=== PATIENT | female | born 1945 | race Caucasian/White ===

== ENCOUNTER 2017-10-08 08:58 | Inpatient (IN) | payer MEDICARE ==
[2017-10-08] VITALS (13 sets, daily range): BP systolic 106–125; BP diastolic 31–58
[~2017-10-08] VITALS: Ht 162.6 cm; Wt 73.5 kg
[~2017-10-08 08:58] MED LIST: ADVAIR 250-501 EACH INH; ALBUTEROL0.63 MG/3 NEB; ASPIR 8181 MG PO; CALCIUM 500+D1 EACH PO; CALCIUM 600 +1 EAC2 PO; CARDIZEM60 MG PO; CARDURA4 MG PO; CLOPIDOGREL75 MG PO; CO Q-10200 MG PO; COUMADIN3 MG PO; DILTIAZEM 24HR120 M1 PO; DIOVAN80 MG PO; FUROSEMIDE40 MG PO; HYDROCHLOROTHIA25 MG; LOSARTAN POTASS25 MG PO; LOVENOX60 MG/0.6 SC; METOPROLOL TART50 MG PO; MULTI-VITAMIN1 EACH PO; NASACORT; NIACIN500 M2 PO; NITROSTAT0.4 MG SL; POTASSIUM CHLO10 ME1 PO; POTASSIUM CHLO20 ME1 PO; PROAIR HFA INH8.5 GM PO; RANITIDINE HCL150 MG PO; SILVADENE20 GM; SIMVASTATIN20 MG PO; SPIRIVA18 MCG INH; TYLENOL WITH C1 EACH PO; WARFARIN SODIUM2 MG PO; WARFARIN SODIUM5 MG PO; ZEBETA10 MG PO; ZIAC 5-6.25 MG1 EACH PO; ZOCOR40 MG PO; iron PO
--- OUTSIDE RECORDS SUMMARY | 2017-10-08 09:00 | XMS REPORT ---
Author Author [facility] Address Unknown Phone Unavailable Care Team Providers Care Heel Varnisher Name Role Phone LC MAURER Unavailable Unavailable Problems This patient has no known problems. Allergies, Adverse Reactions, Alerts This patient has no known allergies or adverse reactions. Medications This patient has no known medications. Results Test Description Test Time Test Comments Text Results Atomic Results Result Comments CHEST 2 VIEWS [place] [address] Patient Name: NATHALIE DIETRICH MR #: [id number] : 1945 Age/Sex: 72/F Req # : [id number] Adm Physician: Ordered by: LC MAURER MD Report #: [id number] [facility]: [facility] Room/Bed: Procedure: 1120- 0019 DX/CHEST 2 VIEWS Exam Date: 06/29/17 Exam Time : 0905 REPORT STATUS: Signed PROCEDURE: CHEST 2 VIEWS TECHNIQUE: PA and lateral chest totaling 3 radiographs INDICATION: Bronchitis COMPARISON: None. FINDINGS: Symmetric hyperinflation without focal air space disease. Lungs are otherwise clear and symmetrically inflated. No pleural effusions. Normal heart size. Elevation of the akanksha bilaterally with mild central vascular prominence. Mediastinal vascular stent, likely within the brachiocephalic artery. Aortic arch calcification. Intact skeleton. CONCLUSION: Hyperinflation in keeping with air trapping related to COPD. No evidence of pneumonia. Dictated by: Genesis Perez M.D. on 06/29/2017 at 9:30 Electronically approved by: Genesis Perez M.D. on 06/29/2017 at 9:30 Dictated By: GENESIS PEREZ MD 9 Transcribed By: TRINY on 06/29/17929 COPY TO: LC MAURER MD
[2017-10-08] MEDS ORDERED: SODIUM CHLORIDE 0.9% 1000ML 1,000 ML ONE (09:51)
[2017-10-08 09:58] LABS: BASOPHILS % 0.2 % (0.0-1.0); EOSINOPHILS # (AUTO) 0.1 (0.0-0.4); EOSINOPHILS % 0.6 % (0.0-6.0); LYMPHOCYTES # (AUTO) 1.6 (1.0-3.2); MEAN CORPUSCULAR HEMOGLOBIN 30.3 pg (28-32); MEAN CORPUSCULAR HGB CONC 31.1 g/dL (31-35); MEAN CORPUSCULAR VOLUME 97.4 fL (81-99); MONOCYTES # (AUTO) 0.7 (0.2-0.8); MONOCYTES % 7.4 % (4.4-11.3); NEUTROPHILS % 74.2 % (38.7-80.0); PLATELET COUNT 339 x10e3/uL (140-360); RED BLOOD COUNT 1.95 x10e6/uL (3.6-5.1)
[2017-10-08] MEDS ORDERED: SODIUM CHLORIDE 0.9% 1000ML 1,000 ML IV SCH (10:00)
[2017-10-08 10:11] LABS: HEMOGLOBIN 5.9 g/dL (12.0-16.0)
[2017-10-08 10:12] LABS: PROTHROMBIN TIME 51.8 seconds (11.9-14.5)
[2017-10-08 10:13] LABS: INR 6.23
[2017-10-08] MEDS ORDERED: PHYTONADIONE 10 MG/ML AMP SC STA (10:13)
[2017-10-08 10:14] LABS: ALANINE AMINOTRANSFERASE 9 IU/L (0-55); ALBUMIN/GLOBULIN RATIO 1.1 (0.8-2.0); ALKALINE PHOSPHATASE 47 IU/L (40-150); ANION GAP 12.6 mmol/L (8-16); BLOOD UREA NITROGEN 37 mg/dL (7-26); BUN/CREATININE RATIO 51 (6-25); CALCIUM 8.9 mg/dL (8.4-10.2); CARBON DIOXIDE 22 mmol/L (22-29); CHLORIDE 111 mmol/L (98-107); CREATININE, SERUM 0.73 mg/dL (0.57-1.11); EST GLOMERULAR FILTRATION RATE > 60 ML/MIN (60-); GLUCOSE 132 mg/dL (74-118); POTASSIUM 3.6 mmol/L (3.5-5.1); SODIUM 142 mmol/L (136-145)
[2017-10-08] MEDS ORDERED: SODIUM CHLORIDE 0.9% 250ML 250 ML IV ONE (10:15)
--- NOTE | 2017-10-08 10:47 | Diagnostic Imaging Report ---
PROCEDURE:CHEST SINGLE (PORTABLE) TECHNIQUE:Portable AP chest INDICATION:Vertigo; weakness COMPARISON:Patients [facility], , CHEST 2 VIEWS, 06/29/2017, 8:50. FINDINGS: Lungs are clear and symmetrically hyperinflated. No pleural effusions. Normal heart size, mediastinal contour, and pulmonary vasculature for technique. Mild aortic arch calcification. Grossly intact skeleton. CONCLUSION: 1. No acute abnormality. 2. Mild hyperinflation suggesting air trapping from COPD. Dictated by: Bob Perez M.D. on 10/08/2017 at 10:47 Electronically approved by: Bob Perez M.D. on 10/08/2017 at 10:47
[2017-10-08] MEDS ORDERED: PANTOPRAZOLE INJ 80 MG in SODIUM CHLORIDE 0.9% 100 ML IV SCH (11:00)
[2017-10-08 11:22] LABS: BILIRUBIN,URINE NEGATIVE (NEGATIVE); CLARITY,URINE CLEAR (CLEAR); COLOR,URINE YELLOW (YELLOW); KETONES,URINE NEGATIVE (NEGATIVE); LEUKOCYTE ESTERASE ,URINE NEGATIVE (NEGATIVE); NITRITE,URINE NEGATIVE (NEGATIVE); PROTEIN,URINE DIPSTICK NEGATIVE (NEGATIVE); URINE UROBILINOGEN 0.2 mg/dL (0.2 - 1)
[2017-10-08 11:39] LABS: WBC,URINE (MAN) 0-5 /HPF (0-5)
[2017-10-08 11:40] LABS: BACTERIA,URINE FEW /HPF; EPITHELIAL CELLS,URINE FEW /LPF
[2017-10-08 11:41] LABS: MUCUS,URINE MODERATE (RARE); URIC ACID CRYSTALS,URINE MANY (FEW)
--- NOTE | 2017-10-08 12:04 | Diagnostic Imaging Report ---
History:AMS Comparison studies:MRI brain 08/11/2016 Technique: Axial images were obtained from the skull base to the vertex. Coronal and sagittal images reconstructed from the axial data. Intravenous contrast: None Findings: Scalp/skull: No abnormalities. Extra-axial spaces: No masses. No fluid collections. Brain sulci: Mildly prominent. Ventricles: Mild compensatory dilatation. No hydrocephalus. Parenchyma: Scattered hypodensities in the supratentorial white matter are small vessel ischemic changes. Focal encephalomalacia at the left pre and post central gyri, secondary to remote insult. No masses, hemorrhage or acute cortical vascular insults. Sellar/suprasellar region: No abnormalities. Craniocervical junction: Patent foramen magnum. No Chiari one malformation. Incidental findings: Atherosclerotic calcifications in the carotid siphons . Under pneumatization of the right mohel cells with sclerotic changes, secondary to remote inflammation. Impression: No acute abnormalities. Chronic findings: 1. Mild generalized volume loss. 2. Moderate supratentorial white matter small vessel ischemic changes.. 3. Remote insult in the left pre and post central gyri. Signed by: DR Alexandro Bermudez M.D. on 10/08/2017 12:01 PM
[2017-10-08] MEDS: D5.45%NS/KCL 20MEQ 1,000 ML IV SCH ×2 (13:30→18:52)
[2017-10-08] MEDS: PANTOPRAZOLE INJ 40 MG in SODIUM CHLORIDE 0.9% 50ML 50 ML IV SCH ×2 (13:30→20:30)
[2017-10-08] MEDS ORDERED: PHYTONADIONE 10 MG/ML AMP SC NR (13:30)
[2017-10-08] MEDS ORDERED: SODIUM CHLORIDE 0.9% 250ML 250 ML IV NR (13:30)
[2017-10-08 16:44] LABS: % IRON SATURATION 18 % (15-50); IRON 69 ug/dL (50-170); TOTAL IRON BINDING CAPACITY 378 ug/dL (261-478); TRANSFERRIN 270 mg/dL (180-382)
--- NOTE | 2017-10-08 16:50 | History and Physical ---
A 72-year-old female who comes in with dizziness and shortness of breath. HISTORY OF PRESENT ILLNESS: Ms. Komal Bassett was in her usual state of health until a couple of days ago the patient started to have shortness of breath and the patient also had some black tarry stool on further discussion. This started about a week or 2 prior to this admission. PAST MEDICAL HISTORY: History of hypertension, history of coronary artery disease, history of hyperlipidemia, history of atrial fibrillation and COPD. HOME MEDICATIONS: Aspirin 81 mg, Advair 250/50, hydrochlorothiazide 25, metoprolol 50, Niacin 500, potassium chloride 20, simvastatin 40, Spiriva 18, losartan 80, warfarin 5 mg, 3 mg every other day, 3 mg every other day. SOCIAL HISTORY: A former smoker. Positive for a few drinks. No heavy alcohol involved. No IV drug abuse. FAMILY HISTORY: Lung cancer in father and leukemia in mother. PHYSICAL EXAMINATION VITAL SIGNS: The patient came in with hypotension. Temperature 98.9, pulse 63, respirations 18, blood pressure 97/37. GENERAL: The patient is alert and oriented x3. HEENT: Normocephalic, atraumatic. Pupils react to light and accommodation. On examination of the icterus, positive for pallor. CVS: S1 and S2 are normal. Regular rate and rhythm. ABDOMEN: Nontender, nondistended. EXTREMITIES: No cyanosis, clubbing or edema. LABS OF NOTE: Initial white count was 9.4, hemoglobin 5.9, hematocrit 19. Chemistries: Sodium 142, potassium 3.6, BUN 37, creatinine 0.73. GFR was 50. Glucose was 132. Lactic acid was 7.3. Coags: PT 51, INR 6.23. ASSESSMENT 1. Upper gastrointestinal bleed. 2. Coumadin toxicity. 3. Hypotension. 4. Acute blood loss anemia. PLAN: Transfusion with 3 units of blood, and 3 units of packed red blood cells has been requested, and start transfusing her. Also GI consult with Dr. Fercho Rios for probable endoscopy after she is stabilized. Receiving all her home medications for COPD. Oxygen per protocol. Further recommendations depending on clinical course. Will continue to monitor the patient. Job#: [id number]
[2017-10-08 18:42] LABS: HEMATOCRIT 20.4 % (34.2-44.1); HEMOGLOBIN 6.4 g/dL (12.0-16.0)
[2017-10-08] MEDS ORDERED: PANTOPRAZOLE 40 MG 10ML VIAL ONE (21:23)
[2017-10-08] MEDS ORDERED: SODIUM CHLORIDE 0.9% 250ML 250 ML ONE (22:48)
[2017-10-09] VITALS (84 sets, daily range): BP systolic 59–151; BP diastolic 27–90
[2017-10-09] MEDS: PANTOPRAZOLE INJ 40 MG in SODIUM CHLORIDE 0.9% 50ML 50 ML IV SCH ×2 (01:00→15:45)
[2017-10-09] MEDS: SALMETEROL/FLUTICASONE 250/50 INH SCH (03:00)
[2017-10-09] MEDS: TIOTROPIUM 18 MCG INH POWDER INH SCH (03:00)
[2017-10-09 06:04] LABS: BASOPHILS % 0.3 % (0.0-1.0); EOSINOPHILS # (AUTO) 0.1 (0.0-0.4); LYMPHOCYTES # (AUTO) 1.9 (1.0-3.2); LYMPHOCYTES % 18.8 % (18.0-39.1); MEAN CORPUSCULAR HEMOGLOBIN 30.6 pg (28-32); MEAN CORPUSCULAR HGB CONC 32.7 g/dL (31-35); MEAN CORPUSCULAR VOLUME 93.6 fL (81-99); MONOCYTES # (AUTO) 0.7 (0.2-0.8); MONOCYTES % 7.1 % (4.4-11.3); NEUTROPHILS # (AUTO) 7.2 (2.1-6.9); NEUTROPHILS % 71.9 % (38.7-80.0); PLATELET COUNT 283 x10e3/uL (140-360); RED BLOOD COUNT 2.35 x10e6/uL (3.6-5.1); RED CELL DISTRIBUTION WIDTH 16.4 % (11.7-14.4); RETICULOCYTE % 5.5 % (0.8-2.2)
[2017-10-09 06:07] LABS: HEMOGLOBIN 7.2 g/dL (12.0-16.0)
[2017-10-09 06:16] LABS: INR 1.69; PROTHROMBIN TIME 18.7 seconds (11.9-14.5)
[2017-10-09 06:17] LABS: PARTIAL THROMBOPLASTIN TIME 31.9 seconds (23.8-35.5)
[2017-10-09 06:21] LABS: ANION GAP 10.4 mmol/L (8-16); BLOOD UREA NITROGEN 19 mg/dL (7-26); BUN/CREATININE RATIO 29 (6-25); CALCIUM 7.8 mg/dL (8.4-10.2); CARBON DIOXIDE 25 mmol/L (22-29); CHLORIDE 111 mmol/L (98-107); CREATININE, SERUM 0.65 mg/dL (0.57-1.11); EST GLOMERULAR FILTRATION RATE > 60 ML/MIN (60-); GLUCOSE 117 mg/dL (74-118); POTASSIUM 3.4 mmol/L (3.5-5.1); SODIUM 143 mmol/L (136-145)
[2017-10-09] MEDS ORDERED: SODIUM CHLORIDE 0.9% 250ML 250 ML IV ONE (06:45)
[2017-10-09 07:50] LABS: FOLATE 15.1 ng/mL (7.0-15.4)
[2017-10-09] MEDS: D5.45%NS/KCL 20MEQ 1,000 ML IV SCH ×4 (10:52→20:51)
[2017-10-09] MEDS: ALBUTEROL/IPRATROPIUM 3 ML NEB NEB SCH ×4 (12:30→22:55)
[2017-10-09] MEDS ORDERED: FUROSEMIDE INJ 10 MG/ML 4 ML VIAL ONE (12:40)
[2017-10-09] MEDS ORDERED: FUROSEMIDE INJ 10 MG/ML 4 ML VIAL IV ONE (12:45)
[2017-10-09] MEDS: PANTOPRAZOL 40MG/SOD CHL 0.9% 50 ML IV SCH ×2 (16:15→21:56)
[2017-10-09 16:37] LABS: HEMATOCRIT 25.4 % (34.2-44.1); HEMOGLOBIN 8.3 g/dL (12.0-16.0)
[2017-10-10] VITALS (35 sets, daily range): BP systolic 99–178; BP diastolic 35–86
[2017-10-10 00:55] LABS: HEMATOCRIT 23.3 % (34.2-44.1)
[2017-10-10 00:57] LABS: HEMOGLOBIN 7.8 g/dL (12.0-16.0)
[2017-10-10] MEDS ORDERED: SODIUM CHLORIDE 0.9% 250ML 250 ML IV ONE (01:15)
[2017-10-10] MEDS: PANTOPRAZOL 40MG/SOD CHL 0.9% 50 ML IV SCH ×6 (02:12→22:37)
[2017-10-10] MEDS: ALBUTEROL/IPRATROPIUM 3 ML NEB NEB SCH ×6 (02:20→21:35)
[2017-10-10] MEDS: D5.45%NS/KCL 20MEQ 1,000 ML IV SCH ×3 (05:34→21:16)
[2017-10-10 05:42] LABS: HEMATOCRIT 33.1 % (34.2-44.1)
[2017-10-10 05:55] LABS: HEMOGLOBIN 11.1 g/dL (12.0-16.0)
[2017-10-10] MEDS ORDERED: FUROSEMIDE INJ 10 MG/ML 2 ML VIAL IV ONE (06:45)
[2017-10-10] MEDS ORDERED: FUROSEMIDE INJ 10 MG/ML 2 ML VIAL ONE (06:52)
[2017-10-10] MEDS: TIOTROPIUM 18 MCG INH POWDER INH SCH (07:00)
[2017-10-10] MEDS: SALMETEROL/FLUTICASONE 250/50 INH SCH (07:00)
[2017-10-10 08:18] LABS: ALANINE AMINOTRANSFERASE 11 IU/L (0-55); ALBUMIN 2.9 g/dL (3.5-5.0); ALKALINE PHOSPHATASE 46 IU/L (40-150); ANION GAP 12.4 mmol/L (8-16); BLOOD UREA NITROGEN 8 mg/dL (7-26); BUN/CREATININE RATIO 12 (6-25); CALCIUM 7.5 mg/dL (8.4-10.2); CARBON DIOXIDE 24 mmol/L (22-29); CHLORIDE 108 mmol/L (98-107); CREATININE, SERUM 0.66 mg/dL (0.57-1.11); EST GLOMERULAR FILTRATION RATE > 60 ML/MIN (60-); GLUCOSE 123 mg/dL (74-118); POTASSIUM 3.4 mmol/L (3.5-5.1); SODIUM 141 mmol/L (136-145)
[2017-10-10] MEDS ORDERED: CYANOCOBALAMIN INJ 1,000 MCG/ML VIAL IM SCH ×2 (09:00→21:00)
[2017-10-10 12:11] LABS: HEMATOCRIT 33.8 % (34.2-44.1); HEMOGLOBIN 11.1 g/dL (12.0-16.0)
[2017-10-10] MEDS ORDERED: CEFTRIAXONE SOD 1 GM VIAL IV SCH (13:30)
[2017-10-10] MEDS ORDERED: LIDOCAINE HCL 2% LOCAL INJ 5 ML SDV VIAL INJ ONE (13:47)
[2017-10-10] MEDS ORDERED: PROPOFOL IV EMULSION 10 MG/ML 50 ML VIAL ONE (13:47)
--- NOTE | 2017-10-10 18:01 | Diagnostic Imaging Report ---
EXAMINATION: CHEST 2 VIEWS INDICATION: \S\SOB \S\[id number] \S\1550 COMPARISON: Chest radiograph from 10/08/2017 at 10:35 AM FINDINGS: PA and lateral views TUBES and LINES: None. LUNGS: Lungs are well inflated. Mildly worsening pulmonary edema. No lobar consolidations. PLEURA: Small left pleural effusion. HEART AND MEDIASTINUM: Stable mild enlargement of the cardiac silhouette. Atherosclerotic calcifications of the aortic arch. BONES AND SOFT TISSUES: No acute osseous lesion. Soft tissues are unremarkable. UPPER ABDOMEN: No free air under the diaphragm. IMPRESSION: Mildly worsening bilateral pulmonary edema. Signed by: Dr. Amparo Camejo M.D. on 10/10/2017 5:57 PM
[2017-10-10 18:16] LABS: INR 1.09; PROTHROMBIN TIME 13.3 seconds (11.9-14.5)
[2017-10-10 19:21] LABS: HEMATOCRIT 35.8 % (34.2-44.1); HEMOGLOBIN 11.8 g/dL (12.0-16.0)
[2017-10-10] MEDS: CEFTRIAXONE SOD 1 GM VIAL IV SCH (21:29)
--- NOTE | 2017-10-10 21:32 | Operative Report ---
DATE OF PROCEDURE: October 10, 2017 REFERRING PHYSICIAN: Dr. Dusty Rojas and Dr. Edinson Jewell PROCEDURE PERFORMED: Esophagogastroduodenoscopy. INDICATIONS FOR EGD: Anemia, history of melena. MEDICATION: Patient was done under MAC. Please see anesthesiologist's note. PROCEDURE: Patient in left lateral decubitus position. Flexible fiberoptic Olympus gastroscope was introduced into the esophagus under direct visualization without any difficulty. The esophagus appeared to be within normal limits. The scope was then advanced with ease into the stomach. Mucosa overlying the antrum and the body revealed some patchy intense erythema and low-grade to moderate edema and biopsies were obtained, sent to stain for H. pylori. Pylorus appeared to be of normal contour and shape. It was intubated with ease and the scope was advanced all the way to the 2nd portion of the duodenum. The scope was then withdrawn slowly. Mucosa overlying the proximal 2nd portion and the duodenal bulb appeared to be within normal limits. The scope was then withdrawn back into the stomach and retroflexed and mucosa overlying the fundus and the cardia appeared to be within normal limits. The scope was then straightened out. It was subsequently withdrawn. Patient tolerated the procedure well. IMPRESSIONS 1. Normal esophagus. 2. Gastritis, biopsied. Biopsies sent to stain for Helicobacter pylori. PLAN: Follow up histology. Follow H and H. Start full liquid diet. Findings do not explain patient's blood loss. Will get a GI bleed scan and if negative, a small bowel series is in order and possibly capsule endoscopy. Patient has had a colonoscopy in July 06 at [place] and reportedly some polyps were removed per patient's account. Records are not available. Job#: [id number] cc:MD EDINSON GIRON MD
[2017-10-10] MEDS: ONDANSETRON HCL INJ 2 MG/ML VIAL IV PRN (22:30)
[2017-10-11] VITALS (8 sets, daily range): BP systolic 118–171; BP diastolic 53–67
--- NOTE | 2017-10-11 00:39 | Diagnostic Imaging Report ---
EXAM: G I BLEED INDICATION: GI BLEED, dark bloody stools since June 2017 COMPARISON: None FINDINGS: The patient's own red blood cells were labeled with 25 mCi of technetium-99m pertechnetate using the in vitro method (UltraTag). Dynamic images of the abdomen were obtained through 60 minutes. Distribution of tracer activity appears physiologic throughout the abdomen. No abnormal accumulation of tracer is seen within the gastrointestinal lumen. IMPRESSION: There is no scan evidence of active gastrointestinal bleeding at this time. Signed by: Dr. Joselin Hicks M.D. on 10/11/2017 12:35 AM
[2017-10-11] MEDS: TRAMADOL HCL 50 MG TAB PO PRN ×2 (01:27→07:40)
[2017-10-11 01:34] LABS: HEMATOCRIT 32.7 % (34.2-44.1)
[2017-10-11] MEDS: ALBUTEROL/IPRATROPIUM 3 ML NEB NEB SCH ×6 (02:55→23:00)
[2017-10-11] MEDS: PANTOPRAZOL 40MG/SOD CHL 0.9% 50 ML IV SCH ×5 (04:44→23:15)
[2017-10-11] MEDS: D5.45%NS/KCL 20MEQ 1,000 ML IV SCH ×2 (04:45→13:16)
[2017-10-11 07:07] LABS: HEMATOCRIT 33.9 % (34.2-44.1); HEMOGLOBIN 11.2 g/dL (12.0-16.0)
[2017-10-11] MEDS: ONDANSETRON HCL INJ 2 MG/ML VIAL IV PRN (07:40)
[2017-10-11] MEDS: TIOTROPIUM 18 MCG INH POWDER INH SCH (09:00)
[2017-10-11] MEDS: SALMETEROL/FLUTICASONE 250/50 INH SCH (09:00)
[2017-10-11 12:13] LABS: HEMOGLOBIN 11.8 g/dL (12.0-16.0)
--- NOTE | 2017-10-11 16:45 | Consultation ---
DATE OF CONSULTATION: PULMONARY CONSULTATION Patient of Dr. Dusty Rojas, Dr. Johnson , Dr. Fercho Rios. HISTORY: Charming, but unfortunate 72-year-old woman admitted with weakness, tarry stools for 3 months. History of colonoscopy with polyp removal and apparently some bleeding after that, and weak for the last 5 days, unable to stand. PAST MEDICAL HISTORY: History of hypertension, hyperlipidemia, coronary artery disease, atrial fibrillation, COPD. ALLERGIES: NO KNOWN ALLERGIES. MEDICATIONS: Include aspirin, Advair, hydrochlorothiazide, metoprolol, niacin, potassium, Zocor, losartan, and warfarin. PAST SURGICAL HISTORY: She has had left carotid surgery, gallbladder surgery, coronary stent, innominate stent, temporal artery biopsy. SOCIAL HISTORY: Quit smoking 1 year ago. Uses oxygen only at night. Now, she is more short of breath. She thought she would improve after she was transfused 5 units of packed cells, but apparently remained short of breath. Her hemoglobin on admission on the was 5.9. PHYSICAL EXAMINATION: GENERAL: This is a well-developed elderly white female, in no acute distress. VITAL SIGNS: Temperature 100.8; pulse 81, irregular; respirations 20, blood pressure 129/59. HEAD: Normocephalic, atraumatic. LUNGS: Diminished breath sounds. HEART: Regular rhythm. ABDOMEN: Nontender. EXTREMITIES: Not edematous. IMPRESSION: 1. Possible heart failure. 2. Anemia, which has resolved. 3. Chronic obstructive pulmonary disease. 4. Coronary artery disease. PLAN: Follow up chest x-ray. Decrease IV fluids. Empiric antibiotic in view of fever. Thank you for this kind referral. Job#: [id number]
[2017-10-11 19:39] LABS: HEMATOCRIT 34.8 % (34.2-44.1); HEMOGLOBIN 11.3 g/dL (12.0-16.0)
[2017-10-11] MEDS: CEFTRIAXONE SOD 1 GM VIAL IV SCH (20:24)
[2017-10-12] VITALS (8 sets, daily range): BP systolic 112–173; BP diastolic 54–72
[2017-10-12] MEDS: ALBUTEROL/IPRATROPIUM 3 ML NEB NEB SCH ×5 (02:46→21:05)
[2017-10-12] MEDS: PANTOPRAZOL 40MG/SOD CHL 0.9% 50 ML IV SCH ×3 (03:01→19:15)
[2017-10-12 06:23] LABS: BASOPHILS % 0.4 % (0.0-1.0); EOSINOPHILS # (AUTO) 0.2 (0.0-0.4); EOSINOPHILS % 2.9 % (0.0-6.0); HEMATOCRIT 29.5 % (34.2-44.1); HEMOGLOBIN 9.7 g/dL (12.0-16.0); LYMPHOCYTES # (AUTO) 0.9 (1.0-3.2); LYMPHOCYTES % 12.3 % (18.0-39.1); MEAN CORPUSCULAR HEMOGLOBIN 30.2 pg (28-32); MEAN CORPUSCULAR HGB CONC 32.9 g/dL (31-35); MEAN CORPUSCULAR VOLUME 91.9 fL (81-99); MONOCYTES # (AUTO) 0.7 (0.2-0.8); MONOCYTES % 9.1 % (4.4-11.3); NEUTROPHILS # (AUTO) 5.4 (2.1-6.9); NEUTROPHILS % 74.7 % (38.7-80.0); PLATELET COUNT 254 x10e3/uL (140-360); RED BLOOD COUNT 3.21 x10e6/uL (3.6-5.1); RED CELL DISTRIBUTION WIDTH 15.8 % (11.7-14.4)
[2017-10-12 06:36] LABS: ANION GAP 10.9 mmol/L (8-16); BLOOD UREA NITROGEN 8 mg/dL (7-26); BUN/CREATININE RATIO 13 (6-25); CALCIUM 7.1 mg/dL (8.4-10.2); CARBON DIOXIDE 25 mmol/L (22-29); CHLORIDE 103 mmol/L (98-107); CREATININE, SERUM 0.64 mg/dL (0.57-1.11); EST GLOMERULAR FILTRATION RATE > 60 ML/MIN (60-); GLUCOSE 94 mg/dL (74-118); SODIUM 136 mmol/L (136-145)
[2017-10-12 06:50] LABS: POTASSIUM 2.9 mmol/L (3.5-5.1)
[2017-10-12] MEDS: ONDANSETRON HCL INJ 2 MG/ML VIAL IV PRN (08:57)
[2017-10-12] MEDS: TIOTROPIUM 18 MCG INH POWDER INH SCH (09:00)
[2017-10-12] MEDS: SALMETEROL/FLUTICASONE 250/50 INH SCH (09:00)
[2017-10-12] MEDS ORDERED: POTASSIUM CHLORIDE 20 MEQ TAB CR PO ONE (12:45)
--- NOTE | 2017-10-12 13:26 | Diagnostic Imaging Report ---
PROCEDURE: SMALL BOWEL SERIES Comparison: None. Indications: ANEMIA, GI BLEED Technique: Small bowel follow through exam was performed using oral barium. Preliminary image was obtained before administration of contrast and serial overhead images were obtained after administration of oral barium. Fluoroscopy was performed and spot images were obtained. Findings: SMALL BOWEL FOLLOW THROUGH: Small bowel loops are normal in caliber and distribution. Spot compression views of the terminal ileum are normal. The transit time was normal. IMPRESSION: No acute radiographic abnormality. Dictated by: Mahad Richardson M.D. on 10/12/2017 at 13:25 Electronically approved by: Mahad Richardson M.D. on 10/12/2017 at 13:25
[2017-10-12] MEDS: CEFTRIAXONE SOD 1 GM VIAL IV SCH (19:56)
[2017-10-13] VITALS: BP 121/56
[2017-10-13] MEDS: PANTOPRAZOL 40MG/SOD CHL 0.9% 50 ML IV SCH ×2 (00:13→05:33)
[2017-10-13 00:59] VITALS: BP 121/56
[2017-10-13] MEDS: ALBUTEROL/IPRATROPIUM 3 ML NEB NEB SCH (03:50)
[2017-10-13 04:00] VITALS: BP 155/69
[2017-10-13 05:39] LABS: BASOPHILS % 0.3 % (0.0-1.0); EOSINOPHILS # (AUTO) 0.2 (0.0-0.4); HEMOGLOBIN 9.8 g/dL (12.0-16.0); LYMPHOCYTES % 14.5 % (18.0-39.1); MEAN CORPUSCULAR HEMOGLOBIN 29.9 pg (28-32); MEAN CORPUSCULAR HGB CONC 32.7 g/dL (31-35); MEAN CORPUSCULAR VOLUME 91.5 fL (81-99); MONOCYTES # (AUTO) 0.7 (0.2-0.8); NEUTROPHILS # (AUTO) 5.1 (2.1-6.9); NEUTROPHILS % 71.8 % (38.7-80.0); PLATELET COUNT 268 x10e3/uL (140-360); RED BLOOD COUNT 3.28 x10e6/uL (3.6-5.1); RED CELL DISTRIBUTION WIDTH 15.4 % (11.7-14.4)
[2017-10-13 05:48] LABS: INR 1.05; PROTHROMBIN TIME 12.9 seconds (11.9-14.5)
[2017-10-13 05:56] LABS: ANION GAP 12.5 mmol/L (8-16); BLOOD UREA NITROGEN 7 mg/dL (7-26); BUN/CREATININE RATIO 11 (6-25); CALCIUM 7.3 mg/dL (8.4-10.2); CARBON DIOXIDE 27 mmol/L (22-29); CHLORIDE 106 mmol/L (98-107); CREATININE, SERUM 0.62 mg/dL (0.57-1.11); EST GLOMERULAR FILTRATION RATE > 60 ML/MIN (60-); GLUCOSE 101 mg/dL (74-118); POTASSIUM 3.5 mmol/L (3.5-5.1); SODIUM 142 mmol/L (136-145)
[2017-10-13 06:14] LABS: MAGNESIUM 1.4 MG/DL (1.3-2.1)
[2017-10-13 07:43] VITALS: BP 163/87
[2017-10-13] MEDS ORDERED: KEFLEX500 MG PO (07:59)
[2017-10-13 08:30] VITALS: BP 163/87
== END 2017-10-13 08:43 | disposition home or self-care (01) | DRG 378 ==
LOC: ER 08:58 → ERHOLD 15:00 → ICU 19:05 → MED/SURG 10-10 08:04
PROVIDERS: ADMIT Internal Medicine; ATTEND Internal Medicine
PROC: 30250K1 (ICD-10-PCS; principal; 2017-10-08)
PROC: 30250N1 (ICD-10-PCS; principal; 2017-10-08)
PROC: 30250L1 (ICD-10-PCS; principal; 2017-10-08)
PROC: 02HV33Z Insertion of Infusion Device into Superior Vena Cava, Percutaneous Approach (ICD-10-PCS; 2017-10-09)
PROC: 0DB78ZX Excision of Stomach, Pylorus, Via Natural or Artificial Opening Endoscopic, Diagnostic (ICD-10-PCS; 2017-10-10)
PROC: 0DB68ZX Excision of Stomach, Via Natural or Artificial Opening Endoscopic, Diagnostic (ICD-10-PCS; 2017-10-10)
DX: K92.2 Gastrointestinal hemorrhage, unspecified (principal); D62 Acute posthemorrhagic anemia; I48.2 Chronic atrial fibrillation; J44.9 Chronic obstructive pulmonary disease, unspecified; T45.515A Adverse effect of anticoagulants, initial encounter; I25.10 Atherosclerotic heart disease of native coronary artery without angina pectoris; K21.9 Gastro-esophageal reflux disease without esophagitis; Z79.01 Long term (current) use of anticoagulants; F32.9 Major depressive disorder, single episode, unspecified; E87.6 Hypokalemia; Z86.73 Personal history of transient ischemic attack (TIA), and cerebral infarction without residual deficits; Z87.891 Personal history of nicotine dependence
CPT/HCPCS: 36415; 36430; 43239; 70450; 71045; 71046; 74250; 78278; 80048; 80053; 81001; 82270; 82607; 82746; 83540; 83605; 83735; 83880; 84466; 85014; 85018; 85025; 85045; 85610; 85730; 86850; 86900; 86920; 87040; 87086; 88305; 88312; 93005; 94640; 96360; 96361; 96365; 96366; 96375; 96376; 99285; A9512; J0696; J1940; J2001; J2405; J3420; J3430; J7030; J7050; P9016; P9017

== ENCOUNTER → 2017-10-16 | Outpatient (CLI) | payer MEDICARE ==
[~2017-10-16] MED LIST changes: +KEFLEX500 MG PO
[2017-10-16 12:20] LABS: BASOPHILS # (AUTO) 0.1 (0.0-0.1); BASOPHILS % 0.8 % (0.0-1.0); EOSINOPHILS # (AUTO) 0.1 (0.0-0.4); EOSINOPHILS % 1.5 % (0.0-6.0); HEMATOCRIT 35.5 % (34.2-44.1); HEMOGLOBIN 11.3 g/dL (12.0-16.0); LYMPHOCYTES # (AUTO) 1.1 (1.0-3.2); MEAN CORPUSCULAR HEMOGLOBIN 29.7 pg (28-32); MEAN CORPUSCULAR HGB CONC 31.8 g/dL (31-35); MEAN CORPUSCULAR VOLUME 93.4 fL (81-99); MONOCYTES # (AUTO) 0.6 (0.2-0.8); MONOCYTES % 7.9 % (4.4-11.3); NEUTROPHILS # (AUTO) 5.3 (2.1-6.9); NEUTROPHILS % 74.5 % (38.7-80.0); PLATELET COUNT 451 x10e3/uL (140-360)
[2017-10-16 12:33] LABS: INR 1.07; PROTHROMBIN TIME 13.1 seconds (11.9-14.5)
--- NOTE | 2017-10-16 13:13 | Diagnostic Imaging Report ---
PROCEDURE: Frontal and lateral views of the chest. COMPARISON: 10/10/17 INDICATIONS: SHORTNESS OF BREATH, COUGH FINDINGS: Lines/tubes: None. Lungs: The lungs are well inflated. Unchanged central vascular congestion and mild interstitial edema Pleura: There is no pneumothorax. Trace bilateral pleural effusions. Heart and mediastinum: The cardiac silhouette is borderline enlarged. Bones: No acute bony abnormality. IMPRESSION: Unchanged central vascular congestion, mild interstitial edema, and trace bilateral pleural effusions. Dictated by: Binu Ordonez M.D. on 10/16/2017 at 13:13 Electronically approved by: Binu Ordonez M.D. on 10/16/2017 at 13:13
== END ==
LOC: RAD 11:50
PROVIDERS: ATTEND Family Medicine
DX: J40 Bronchitis, not specified as acute or chronic (principal); D64.9 Anemia, unspecified; Z79.01 Long term (current) use of anticoagulants
CPT/HCPCS: 36415; 71046; 85025; 85610

== ENCOUNTER → 2018-04-22 | Emergency (ER) | payer MEDICARE ==
[~2018-04-22] VITALS: Ht 162.6 cm; Wt 73.5 kg
[~2018-04-22] MED LIST changes: +ULTRAM50 MG PO
--- NOTE | 2018-04-22 14:27 | Diagnostic Imaging Report ---
BILATERAL KNEE X-RAY - 6 VIEWS HISTORY: \S\FALL \S\[id number] \S\1340 COMPARISON: None available. FINDINGS: Bones: No acute displaced fracture. Osseous alignment is within normal limits. Joints: The joint spaces are well-maintained. Soft tissues: The soft tissues appear unremarkable. IMPRESSION: No acute radiographic abnormality. Signed by: Dr. Amparo Camejo M.D. on 04/22/2018 2:23 PM
== END | disposition home or self-care (01) ==
LOC: ER 12:57
DX: S80.02XA Contusion of left knee, initial encounter (principal); S80.01XA Contusion of right knee, initial encounter; W01.0XXA Fall on same level from slipping, tripping and stumbling without subsequent striking against object, initial encounter; Y93.01 Activity, walking, marching and hiking; Y92.238 Other place in hospital as the place of occurrence of the external cause; I51.9 Heart disease, unspecified; Z87.891 Personal history of nicotine dependence
CPT/HCPCS: 99284

== ENCOUNTER 2018-10-06 15:01 | Observation (INO) | payer MEDICARE ==
[~2018-10-06] VITALS: Ht 162.6 cm; Wt 66.7 kg
--- OUTSIDE RECORDS SUMMARY | 2018-10-06 15:05 | XMS REPORT | Continuity of Care Document ---
Author [facility] Interface Address Unknown Phone Unavailable Problems Problem Status Onset Date Classification Date Reported Comments Source FOLLOW UP/ HOSPITAL Active 07/13/2017 [facility] GI BLEED Active 07/06/2017 [facility] GI BLEED/ SENT BY DR Active 07/06/2017 [facility] Escherichia coli<sup>1, 2</sup> Active 03/10/2017 Problem 07/31/2017 Problem added by Discern Expert. [facility] DYSURIA Active 03/09/2017 [facility] HIGH BLOOD PRESSURE/ HEADACHES Active 03/09/2017 [facility] INNOMINATE ARTERY STENOSIS Active 10/22/2016 [facility] CCL/NOMINATE ARTERY OSTIAL ARTERY STENT/ Active 10/22/2016 [facility] CHEST PAIN/UNSTABLE ANGINA Active 09/08/2016 [facility] CAD, ANGINA Active 09/03/2016 [facility] CAD/HEART CATH Active 05/10/2002 [facility] Atrial fibrillation Resolved Problem [facility]/13[facility] COPD (<span ID="[id number]">Confirmed</span>) Active Problem 07/31/2017 [facility]F (<span ID="[id number]">Confirmed</span>) Resolved Problem 07/31/2017 [facility] HLD (<span ID="[id number]">Confirmed</span>) Resolved Problem 07/31/2017 [facility] (<span ID="[id number]">Confirmed</span>) Active Problem 07/31/2017 [facility] Heart attack Resolved Problem 07/31/2017 [facility] Pneumonia Resolved Problem 07/31/2017 [facility] Paroxysmal atrial fibrillation Active Problem 07/31/2017 [facility] Carotid artery stenosis with cerebral infarction Active Problem 07/31/2017 [facility] Atherosclerotic heart disease of [place] coronary artery without angina pectoris Active Problem 07/31/2017 [facility] Escherichia coli<sup>1</sup> Active Problem 03/13/2017 Problem added by Discern Expert. [facility] ILLNESS, UNSPECIFIED Active [facility] OTHER SPECIFIED CONGENITAL DEFORMITIES Active [facility] GASTROINTESTINAL HEMORRHAGE, UNSPECIFIED Active [facility] DYSURIA Active [facility] [employer] MEDICAL EXAM W/ Active [facility] Medications Medication Details Route Status Patient Instructions Ordering Provider Order Date Source Amlodipine 5 mg, 1 tab, Route: PO, Drug form: TAB, Daily, Dosing Weight 74.364, kg, Start date: 07/10/17 9:00:00 [employer], Duration: 30 day, Stop date: 08/08/17 9:00:00 CSTNotes: (Same as: Norvasc) No Longer Active 07/10/2017 [facility] potassium chloride 20 mEq oral tablet, extended release 20 mEq, 1 tab, Route: PO, Drug form: ERTAB, Daily, Dosing Weight 74.364, kg, Start date: 07/10/17 9:00:00 [employer], Duration: 30 day, Stop date: 08/08/17 9:00:00 CSTNotes: (Same as: K-Dur 20) "Do Not Crush" With food and full glass of water No Longer Active 07/10/2017 [facility] valsartan 160 mg, 1 tab, Route: PO, Drug form: TAB, BID, Dosing Weight 74.364, kg, Start date: 07/09/17 21:00:00 [employer], Duration: 30 day, Stop date: 08/08/17 9:00:00 CSTNotes: Same as Diovan Inactive 07/10/2017 [facility] Niacin 500 MG Extended Release Capsule 500 mg, 2 tab, Route: PO, Drug form: ERTAB, Bedtime, Dosing Weight 74.364, kg, Start date: 07/09/17 21:00:00 [employer], Duration: 30 day, Stop date: 08/07/17 21:00:00 CSTNotes: "Do Not Crush" With food. Inactive 07/10/2017 [facility] ferrous sulfate 325 mg oral enteric coated tablet 325 mg=1 tab, PO, Daily, 0 Refill(s) Active 07/09/2017 [facility] potassium chloride 20 mEq oral tablet, extended release 20 mEq=1 tab, PO, Daily, # 30 tab, 3 Refill(s) Active 07/09/2017 [facility] warfarin 4 mg oral tablet 4 mg=1 tab, PO, Daily, for 6 days, # 30 tab, 0 Refill(s) Active 07/09/2017 [facility] amLODIPine 5 mg oral tablet 5 mg=1 tab, PO, Daily, # 30 tab, 0 Refill(s) Active 07/09/2017 [facility] Albuterol 0.83 MG/ML Inhalant Solution 2.5 mg=3 mL, NEB, TID, PRN as needed for wheezing, 0 Refill(s) Active 07/09/2017 [facility] Hydrochlorothiazide 12.5 mg, PO, Daily, 0 Refill(s) Active 07/09/2017 [facility] ascorbic acid 500 mg oral tablet 2,000 mg=4 tab, PO, Daily, # 30 tab, 0 Refill(s) Active 07/09/2017 [facility] Plavix 75 mg, 1 tab, Route: PO, Drug form: TAB, Daily, Dosing Weight 74.364, kg, Start date: 07/09/17 9:00:00 [employer], Duration: 30 day, Stop date: 08/07/17 9:00:00 CSTNotes: (Same As: Plavix) Inactive 07/09/2017 [facility] Hydrochlorothiazide 12.5 mg, 1 cap, Route: PO, Drug form: CAP, Daily, Dosing Weight 74.364, kg, Start date: 07/09/17 9:00:00 [employer], Duration: 30 day, Stop date: 08/07/17 9:00:00 CSTNotes: (Same as: Microzide) With food. Inactive 07/09/2017 [facility] ferrous sulfate 325 mg, 1 tab, Route: PO, Drug form: ECTAB, Daily, Dosing Weight 74.364, kg, Start date: 07/09/17 9:00:00 [employer], Duration: 30 day, Stop date: 08/07/17 9:00:00 CSTNotes: Give with food. "Do Not Crush" Inactive 07/09/2017 [facility] pantoprazole 40 mg, 1 tab, Route: PO, Drug form: ECTAB, Before Breakfast, Dosing Weight 74.364, kg, Start date: 07/09/17 7:30:00 [employer], Duration: 30 day, Stop date: 08/07/17 7:30:00 CSTNotes: Tablet should not be c hewed or crushed. (Same as: Protonix) Inactive 07/09/2017 [facility] Ondansetron 4 mg, Route: IVP, ONCE, Dosing Weight 74.364, kg, PRN Nausea & Vomiting, Start date: 07/08/17 14:58:00 [employer] Inactive 07/08/2017 [facility] Flumazenil 0.2 mg, Route: IVP, PRN, Dosing Weight 74.364, kg, PRN Benzodiazepine Reversal, Initial dose, Start date: 07/08/17 14:58:00 [employer], Duration: 30 day, Stop date: 08/07/17 14:57:00 [employer] Inactive 07/08/2017 [facility] Naloxone 0.4 mg, Route: IVP, Q2MIN, Dosing Weight 74.364, kg, PRN Narcotic Reversal, Start date: 07/08/17 14:58:00 [employer], Duration: 8 doses or times, Stop date: Limited # of times Inactive 07/08/2017 [facility] Dulcolax Laxative 5 mg, 1 tab, Route: PO, Drug form: ECTAB, ONCE, Dosing Weight 74.364, kg, Start date: 07/08/17 6:00:00 [employer], Stop date: 07/08/17 6:00:00 CSTNotes: (Same As: Dulcolax, Correctol) (Do Not Crush) "Do No t Crush" Inactive 07/08/2017 [facility] GoLYTELY 2,000 mL, Route: PO, Drug Form: PDR/REC, ONCE, Start date: 07/08/17 4:00:00 [employer]ER, Stop date: 07/08/17 4:00:00 CSTNotes: (polyethylene glycol electrolyte solution 4 Liter bottle) (Same as: Golytely, Colyte) No Longer Active 07/08/2017 [facility] Simvastatin 40 mg, 1 tab, Route: PO, Drug form: TAB, Bedtime, Dosing Weight 69.545, kg, Start date: 07/07/17 21:00:00 [employer], Duration: 30 day, Stop date: 08/05/17 21:00:00 CSTNotes: (Same as: Zocor) No Longer Active 07/08/2017 [facility] GoLYTELY 2,000 mL, Route: PO, Drug Form: PDR/REC, ONCE, Start date: 07/07/17 18:00:00 [employer]CE TENDER, Stop date: 07/07/17 18:00:00 CSTNotes: (polyethylene glycol electrolyte solution 4 Liter bottle) (Same as: Golytely, Colyte) Inactive 07/08/2017 [facility] Dulcolax Laxative 10 mg, 2 tab, Route: PO, Drug form: ECTAB, ONCE, Dosing Weight 74.364, kg, Start date: 07/07/17 17:00:00 [employer] F[employer]CE TENDER, Stop date: 07/07/17 17:00:00 CSTNotes: (Same As: Dulcolax, Correctol) (Do Not Crush) "Do Not Crush" Inactive 07/07/2017 [facility] Golytely 4,000 ml, Route: PO, Drug Form: PDR/REC, Dosing Weight 74.364, kg, ONCE, Start date: 07/07/17 16:20:00 BLAST F[employer]CE TENDER, Stop date: 07/07/17 16:20:00 CSTNotes: (polyethylene glycol electrolyte solution 4 Liter bottle) (Same as: Golytely, Colyte) Inactive 07/07/2017 [facility] Golytely 4,000 ml, Route: PO, Drug Form: PDR/REC, Dosing Weight 74.364, kg, ONCE, Start date: 07/07/17 16:08:00 BLAST F[employer]CE TENDER, Stop date: 07/07/17 16:08:00 BLAST F[employer]NACE TENDER Inactive 07/07/2017 [facility] Golytely 4,000 ml, Route: PO, Drug Form: PDR/REC, Dosing Weight 74.364, kg, ONCE, Start date: 07/07/17 14:51:00 BLAST F[employer]CE TENDER, Stop date: 07/07/17 14:51:00 BLAST [employer]CE TENDER Inactive 07/07/2017 [facility] Streptococcus pneumoniae serotype 1 capsular antigen diphtheria [id number] protein conjugate vaccine / Streptococcus pneumoniae serotype 14 capsular antigen diphtheria [id number] protein conjugate vaccine / Streptococcus pneumoniae serotype 18C capsular antigen d 0.5 mL, Route: IM, Drug Form: INJ, Daily, Start date: 07/07/17 9:00:00 [employer]ER, Duration: 1 doses or times, Stop date: 07/07/17 9:00:00 CSTNotes: Shake well prior to use (Same as: Prevnar 13) Inactive 07/07/2017 [facility] 24 HR Metoprolol Tartrate 25 MG Extended Release Tablet [Toprol] 25 mg, 1 tab, Route: PO, Drug form: ERTAB, Daily, Start date: 07/07/17 9:00:00 [employer]ER, Duration: 30 day, Stop date: 08/08/17 9:00:00 CSTNotes: (Same as: Toprol XL) Do Not Crush No Longer Active 07/07/2017 [facility] Advair Diskus 250 mcg-50 mcg inhalation powder 1 puff, Route: INHALATION, Drug Form: AERO, Dosing Weight 69.545, kg, BID, Start date: 07/07/17 9:00:00 BLAST F[employer]CE TENDER, Duration: 30 day, Stop date: 08/05/17 17:00:00 BLAST [employer]CE T[employer]ER No Longer Active 07/07/2017 [facility] tiotropium 0.018 MG/ACTUAT Inhalant Powder [Spiriva] 18 microgram, 1 inhalation, Route: INHALATION, Drug form: CAP, Daily, Dosing Weight 69.545, kg, Start date: 07/07/17 9:00:00 BLAST F[employer]NACE TENDER, Duration: 30 day, Stop date: 08/05/17 9:00:00 CSTNotes: (Same As: Spiriva) No Longer Active 07/07/2017 [facility] budesonide-formoterol 160 mcg-4.5 mcg/inh inhalation aerosol with adapter 2 inhalation, Route: INHALATION, Drug Form: AERO/A, RBID, Start date: 07/07/17 8:00:00 BLAST F[employer]NACE TENDER, Duration: 30 day, Stop date: 08/05/17 20:00:00 CSTNotes: (Same as: Symbicort) WASTE: Aerosol - Return to Pharmacy No Longer Active 07/07/2017 [facility] Albuterol 0.833 MG/ML / Ipratropium [place] 0.167 MG/ML Inhalant Solution [DuoNeb] 3 ml, Route: NEB, Drug Form: SOLN, Dosing Weight 69.545, kg, PRN, PRN Respiratory Protocol, Start date: 07/07/17 0:37:00 BLAST F[employer]CE [employer]ENDER, Duration: 30 day, Stop date: 08/06/17 0:36:00 CSTNotes: (Same as: Duoneb) No Longer Active 07/07/2017 [facility] Saline Flush 0.9% 10 ml, Route: MISC, Drug Form: INJ, Dosing Weight 69.545, kg, PRN, PRN Line Flush, Start date: 07/06/17 22:39:00 BLAST F[employer]NACE TENDER, Duration: 30 day, Stop date: 08/05/17 22:38:00 CSTNotes: (Same as: BD Posiflush) No Longer Active 07/07/2017 [facility] Sodium Chloride 0.9% IV 1,000 mL 1,000 mL, Rate: 125 ml/hr, Infuse over: 8 hr, Route: IV, Dosing Weight 69.545 kg, Total Volume: 1,000, Start date: 07/06/17 22:39:00 BLAST F[employer]NACE TENDER, Duration: 30 day, Stop date: 08/05/17 22:38:00 BLAST F[employer]NACE TENDER, 1.79, m2 No Longer Active 07/07/2017 [facility] Acetaminophen 650 mg, 2 tab, Route: PO, Drug form: TAB, Q4H, Dosing Weight 69.545, kg, PRN Pain 1-3/Temp > 100.4 F, Start date: 07/06/17 22:39:00 BLAST F[employer]NACE TENDER, Duration: 30 day, Stop date: 08/05/17 22:38:00 CSTNotes: Do not exceed 4 gm/day. (Same as: Tylenol) No Longer Active 07/07/2017 [facility] Ondansetron 4 mg, 2 mL, Route: IVP, Drug form: INJ, Q6H, Dosing Weight 69.545, kg, PRN Nausea & Vomiting, Start date: 07/06/17 22:39:00 BLAST F[employer]NACE TENDER, Duration: 30 day, Stop date: 08/05/17 22:38:00 CSTNotes: (Same as: Zofran) MEDICATION WASTE Product Size: 4 mg Product Wasted: ___ mg No Longer Active 07/07/2017 [facility] Protonix 80 mg, Route: IVP, Drug form: INJ, ONCE, Dosing Weight 69.545, kg, Priority: STAT, Start date: 07/06/17 21:22:00 BLAST FURNACE TENDER, Stop date: 07/06/17 21:22:00 CSTNotes: For IV push reconstitute with 10 ml 0.9% sodi um chloride and push over 2 minutes. (Same as: Protonix) No Longer Active 07/07/2017 [facility] pantoprazole 80 mg + Sodium Chloride 0.9% IV 100 mL 100 mL, Rate: 10 ml/hr, Infuse over: 10 hr, Route: IVPB, Dosing Weight 69.545 kg, Total Volume: 100, Infuse at 8 mg / hr for 72 hours for GI bleeding, Start date: 07/06/17 21:22:00 BLAST FURNACE TENDER, Duration: 72 hr, Stop date: 07/09/17 21:21:00 BLAST F[employer]NACE TENDER, 1.79, m2 No Longer Active 07/07/2017 [facility] Rocephin 1 gm, Route: IVPB, Drug form: PDR/INJ, [id number], Dosing Weight 77.318, kg, Start date: 03/11/17 1:42:00 CDT, Duration: 5 day, Stop date: 03/15/17 1:42:00 CDT, ABX Indication: Urinary Tract Infection No Longer Active 03/11/2017 [facility] Simvastatin 40 mg, 1 tab, Route: PO, Drug form: TAB, Bedtime, Dosing Weight 70, kg, Start date: 03/10/17 21:00:00 CDT, Duration: 30 day, Stop date: 04/08/17 21:00:00 CDTNotes: (Same as: Zocor) Inactive 03/11/2017 [facility] valsartan 160 mg, 1 tab, Route: PO, Drug form: TAB, Q12H, Dosing Weight 70, kg, Start date: 03/10/17 21:00:00 CDT, Duration: 30 day, Stop date: 04/09/17 9:00:00 CDTNotes: Same as Diovan Inactive 03/11/2017 [facility] Coumadin 3 mg, 3 tab, Route: PO, Drug form: TAB, Q5PM, Dosing Weight 70, kg, Start date: 03/10/17 17:00:00 CDT, Duration: 1 doses or times, Stop date: 03/10/17 17:00:00 CDTNotes: Nurse to ensure documentation of patient education per anticoagulation policy. Avoid large intake of vitamin-K containing foods diet. (Same As: Coumadin) WASTE: F/P - P Waste Black; E - P Waste Black Inactive 03/10/2017 [facility] nitrofurantoin macrocrystals-monohydrate 100 mg oral capsule (Macrobid) 100 mg=1 cap, PO, [id number], X 10 day, # 20 cap, 0 Refill(s) Active 03/10/2017 [facility] valsartan 160 mg oral tablet 160 mg=1 tab, PO, BID, 0 Refill(s) Active 03/10/2017 [facility] Microencapsulated Potassium Chloride 20 MEQ Extended Release Oral Tablet [Klor-Con] 20 mEq=1 tab, PO, Daily, # 90 tab, 1 Refill(s) Inactive 03/10/2017 [facility] simvastatin 40 mg oral tablet 40 mg=1 tab, PO, Bedtime, 0 Refill(s) Active 03/10/2017 [facility] 24 HR Metoprolol Tartrate 25 MG Extended Release Tablet [Toprol] 25 mg=1 tab, PO, Daily, 0 Refill(s) Active 03/10/2017 [facility] terazosin 2 mg oral capsule 2 mg=1 cap, PO, Bedtime, 0 Refill(s) Inactive 03/10/2017 [facility] verapamil 180 mg oral capsule, extended release 180 mg=1 cap, PO, Daily, 0 Refill(s) Inactive 03/10/2017 [facility] warfarin 2 mg oral tablet 2 mg=1 tab, PO, BID, 0 Refill(s) Active 03/10/2017 [facility] Hydrochlorothiazide 25 MG Oral Tablet 25 mg=1 tab, PO, Daily, 0 Refill(s) Active 03/10/2017 [facility] clopidogrel 75 MG Oral Tablet [Plavix] 75 mg=1 tab, PO, Daily, 0 Refill(s) Active 03/10/2017 [facility] amLODIPine 10 mg oral tablet 10 mg=1 tab, PO, Daily, 0 Refill(s) Inactive 03/10/2017 [facility] Niacin 500 MG Extended Release Capsule 500 mg=1 cap, PO, Bedtime, 0 Refill(s) Active 03/10/2017 [facility] valsartan 160 mg, 1 tab, Route: PO, Drug form: TAB, Daily, Dosing Weight 70, kg, Start date: 03/10/17 9:00:00 CDT, Duration: 30 day, Stop date: 04/08/17 9:00:00 CDTNotes: Same as Diovan Inactive 03/10/2017 [facility] tiotropium 0.018 MG/ACTUAT Inhalant Powder [Spiriva] 18 microgram, 1 inhalation, Route: INHALATION, Drug form: CAP, RDaily, Dosing Weight 70, kg, Start date: 03/10/17 9:00:00 CDT, Stop date: 04/08/17 8:00:00 CDTNotes: (Same As: Spiriva) Inactive 03/10/2017 [facility] 24 HR Metoprolol Tartrate 25 MG Extended Release Tablet [Toprol] 25 mg, 1 tab, Route: PO, Drug form: ERTAB, Q12H, Start date: 03/10/17 9:00:00 CDT, Duration: 30 day, Stop date: 04/08/17 21:00:00 CDTNotes: (Same as: Toprol XL) Do Not Crush Inactive 03/10/2017 [facility] Hydrochlorothiazide 12.5 MG Oral Capsule 12.5 mg, 1 cap, Route: PO, Drug form: CAP, Daily, Dosing Weight 70, kg, Start date: 03/10/17 9:00:00 CDT, Duration: 30 day, Stop date: 04/08/17 9:00:00 CDTNotes: (Same as: Microzide) With food. Inactive 03/10/2017 [facility] Advair Diskus 250 mcg-50 mcg inhalation powder 1 puff, Route: INHALATION, Drug Form: AERO, Dosing Weight 70, kg, BID, Start date: 03/10/17 9:00:00 CDT, Duration: 30 day, Stop date: 04/08/17 17:00:00 CDT Inactive 03/10/2017 [facility] clopidogrel 75 mg, 1 tab, Route: PO, Drug form: TAB, Daily, Dosing Weight 70, kg, Start date: 03/10/17 9:00:00 CDT, Duration: 30 day, Stop date: 04/08/17 9:00:00 CDTNotes: (Same As: Plavix) Inactive 03/10/2017 [facility] aspirin 81 mg tablet, enteric coated 81 mg, 1 tab, Route: PO, Drug form: ECTAB, Daily, Dosing Weight 70, kg, Start date: 03/10/17 9:00:00 CDT, Duration: 30 day, Stop date: 04/08/17 9:00:00 CDTNotes: Do not crush or chew. (Same As: Ecotrin) Inactive 03/10/2017 [facility] Macrobid 100 mg, 1 cap, Route: PO, Drug form: CAP, [id number], Dosing Weight 77.318, kg, Priority: NOW, Start date: 03/10/17 7:52:00 CDT, Stop date: 03/16/17 19:52:00 CDTNotes: Not recommended for patients with CrCl Inactive 03/10/2017 [facility] budesonide-formoterol 160 mcg-4.5 mcg/inh inhalation aerosol with adapter 2 inhalation, Route: INHALATION, Drug Form: AERO/A, RBID, Start date: 03/10/17 6:31:00 CDT, Duration: 30 day, Stop date: 04/08/17 20:00:00 CDTNotes: Therapeutic Interchange for fluticasone/salmeterol 250/50 (Advair Diskus) 1 INH Q12H (Same as: Symbicort) WASTE: Aerosol - Return to Pharmacy Inactive 03/10/2017 [facility] Norvasc 10 mg, 1 tab, Route: PO, Drug form: TAB, ONCE, Dosing Weight 70, kg, Start date: 03/10/17 4:27:00 CDT, Stop date: 03/10/17 4:27:00 CDTNotes: (Same as: Norvasc) Inactive 03/10/2017 [facility] Hydrochlorothiazide 25 mg, 1 tab, Route: PO, Drug form: TAB, ONCE, Dosing Weight 70, kg, Start date: 03/10/17 4:27:00 CDT, Stop date: 03/10/17 4:27:00 CDTNotes: (Same as: Hydrodiuril) With food. Inactive 03/10/2017 [facility] NS (Bolus) IV 1,000 mL, 1,000 ml/hr, Infuse Over: 1 hr, Route: IV, 1,000, Drug form: INJ, ONCE, Priority: STAT, Dosing Weight 70 kg, Start date: 03/10/17 4:12:00 CDT, Duration: 1 doses or times, Stop date: 7 4:12:00 CDT Inactive 03/10/2017 [facility] Rocephin 1 gm, Route: IVPB, Drug form: PDR/INJ, ONCE, Dosing Weight 70, kg, Priority: STAT, Start date: 03/10/17 1:42:00 CDT, Duration: 1 doses or times, Stop date: 03/10/17 1:42:00 CDT, ABX Indication: Urinary Tract InfectionNotes: (Same As: Rocephin). Use with 100 mL NS and infuse over 30 min MEDICATION WASTE Product Size: 1000 mg Product Wasted: ___ mg Inactive 03/10/2017 [facility] Calcium Chloride 0.0014 MEQ/ML / Potassium Chloride 0.004 MEQ/ML / Sodium Chloride 0.103 MEQ/ML / Sodium Lactate 0.028 MEQ/ML Injectable Solution 1,000 mL, 1,000 ml/hr, Infuse Over: 1 hr, Route: IV, 1,000, Drug form: INJ, ONCE, Priority: STAT, Dosing Weight 70 kg, Start date: 03/10/17 1:41:00 CDT, Duration: 1 doses or times, Stop date: 03/10/17 1:41:00 CDT Inactive 03/10/2017 [facility] Aspirin 81 MG Chewable Tablet 324 mg, Route: PO, Drug form: CHEWTAB, ONCE, Dosing Weight 70, kg, Priority: STAT, Start date: 03/10/17 0:22:00 CDT, Stop date: 03/10/17 0:22:00 CDT Inactive 03/10/2017 [facility] Warfarin Sodium 3 MG Oral Tablet [Coumadin] 3 mg=1 tab, PO, Daily, # 7 tab, 0 Refill(s) Active 11/05/2016 [facility] aspirin 81 mg tablet, enteric coated 81 mg=1 tab, PO, Daily, # 30 tab, 0 Refill(s) Active 11/05/2016 [facility] Hydrochlorothiazide 12.5 MG Oral Capsule 12.5 mg=1 cap, PO, Daily, # 30 cap, 0 Refill(s) Active 11/05/2016 [facility] 24 HR Metoprolol Tartrate 25 MG Extended Release Tablet [Toprol] 25 mg=1 tab, PO, Q12H, # 60 tab, 0 Refill(s) Active 11/05/2016 [facility] niacin 500 mg oral tablet 500 mg=1 tab, PO, Daily, # 30 tab, 0 Refill(s) Active 11/05/2016 [facility] simvastatin 40 mg oral tablet 40 mg=1 tab, PO, Bedtime, # 30 tab, 0 Refill(s) Active 11/05/2016 [facility] valsartan 160 mg oral tablet 160 mg=1 tab, PO, Daily, # 30 tab, 0 Refill(s) Active 11/05/2016 [facility] clopidogrel 75 mg oral tablet 75 mg=1 tab, PO, Daily, # 30 tab, 0 Refill(s) Active 11/05/2016 [facility] valsartan 160 mg, 1 tab, Route: PO, Drug form: TAB, Daily, Dosing Weight 69.091, kg, Start date: 11/05/16 9:00:00 CDT, Duration: 30 day, Stop date: 12/04/16 9:00:00 CDTNotes: Same as Diovan Inactive 11/05/2016 [facility] Niacin 500 mg, 1 tab, Route: PO, Drug form: TAB, Daily, Dosing Weight 69.091, kg, Start date: 11/05/16 9:00:00 CDT, Duration: 30 day, Stop date: 12/04/16 9:00:00 CDTNotes: With food. Inactive 11/05/2016 [facility] Hydrochlorothiazide 12.5 MG Oral Capsule 12.5 mg, 1 cap, Route: PO, Drug form: CAP, Daily, Dosing Weight 69.091, kg, Start date: 11/05/16 9:00:00 CDT, Duration: 30 day, Stop date: 12/04/16 9:00:00 CDTNotes: (Same as: Microzide) With food. Inactive 11/05/2016 [facility] Plavix 75 mg, 1 tab, Route: PO, Drug form: TAB, Daily, Dosing Weight 69.091, kg, Start date: 11/05/16 9:00:00 CDT, Duration: 30 day, Stop date: 12/04/16 9:00:00 CDTNotes: (Same As: Plavix) Inactive 11/05/2016 [facility] aspirin 81 mg tablet, enteric coated 81 mg, 1 tab, Route: PO, Drug form: ECTAB, Daily, Dosing Weight 69.091, kg, Start date: 11/05/16 9:00:00 CDT, Duration: 30 day, Stop date: 12/04/16 9:00:00 CDTNotes: Do not crush or chew. (Same As: Ecotrin) Inactive 11/05/2016 [facility] tiotropium 0.018 MG/ACTUAT Inhalant Powder [Spiriva] 18 microgram, 1 inhalation, Route: INHALATION, Drug form: CAP, RDaily, Dosing Weight 69.091, kg, Start date: 11/05/16 8:00:00 CDT, Duration: 30 day, Stop date: 12/04/16 8:00:00 CDTNotes: (Same As: Spiriva) Inactive 11/05/2016 [facility] heparin 5,000 unit, 1 mL, Route: SUB-Q, Drug form: INJ, Q8H, Dosing Weight 69.091, kg, Start date: 11/05/16 0:00:00 CDT, Duration: 30 day, Stop date: 12/04/16 16:00:00 CDTNotes: porcine heparin Inactive 11/05/2016 [facility] Simvastatin 40 mg, 1 tab, Route: PO, Drug form: TAB, Bedtime, Dosing Weight 69.091, kg, Start date: 11/04/16 21:00:00 CDT, Duration: 30 day, Stop date: 12/03/16 21:00:00 CDTNotes: (Same as: Zocor) No Longer Active 11/05/2016 [facility] 24 HR Metoprolol Tartrate 25 MG Extended Release Tablet [Toprol] 25 mg, 1 tab, Route: PO, Drug form: ERTAB, Q12H, Start date: 11/04/16 21:00:00 CDT, Duration: 30 day, Stop date: 12/04/16 9:00:00 CDTNotes: (Same as: Toprol XL) Do Not Crush No Longer Active 11/05/2016 [facility] budesonide-formoterol 160 mcg-4.5 mcg/inh inhalation aerosol with adapter 2 inhalation, Route: INHALATION, Drug Form: AERO/A, RBID, Start date: 11/04/16 20:00:00 CDT, Duration: 30 day, Stop date: 12/04/16 8:00:00 CDTNotes: (Same as: Symbicort) WASTE: Aerosol - Return to Pharmacy No Longer Active 11/05/2016 [facility] Sodium Chloride 0.154 MEQ/ML Injectable Solution 250 mL, 250 ml/hr, Infuse Over: 1 hr, Route: IV, 250, Drug form: INJ, ONCALL, Priority: Routine, Dosing Weight 69.091 kg, Start date: 11/04/16 19:00:00 CDT, Duration: 1 doses or times No Longer Active 11/05/2016 [facility] Sodium Chloride 0.154 MEQ/ML Injectable Solution 750 mL, Rate: 75 ml/hr, Infuse over: 10 hr, Route: IV, Dosing Weight 69.091 kg, Total Volume: 750, Start date: 11/04/16 18:10:00 CDT, Duration: 24 hr, Stop date: 11/05/16 18:09:00 CDT No Longer Active 11/04/2016 [facility] Calcium Carbonate 500 MG Chewable Tablet 1,000 mg, 2 tab, Route: PO, Drug form: CHEWTAB, PRN, Dosing Weight 69.091, kg, PRN Abnormal Lab Result, FOR ICU USE ONLY, Start date: 11/04/16 17:10:00 CDT, Duration: 30 day, Stop date: 12/04/16 17:09:00 CDTNotes: (Same As: Tums) Calcium Carbonate 500 rr=176 mg elemental calcium Dose= mg calcium carbonate ( mg elemental calcium) No Longer Active 11/04/2016 [facility] Magnesium Oxide 800 mg, 2 tab, Route: PO, Drug form: TAB, PRN, Dosing Weight 69.091, kg, PRN Abnormal Lab Result, FOR ICU USE ONLY, Start date: 11/04/16 17:10:00 CDT, Duration: 30 day, Stop date: 12/04/16 17:09:00 C DTNotes: (Same as: Mag-Ox 400) Magnesium oxide 246yp=140vd elemental magnesium Dose=____mg magnesium oxide (___mg elemental magnesium) No Longer Active 11/04/2016 [facility] Calcium Gluconate 1 gm, 10 mL, Route: IVPB, PRN, Dosing Weight 69.091, kg, PRN Abnormal Lab Result, Start date: 11/04/16 17:10:00 CDT, Duration: 30 day, Stop date: 12/04/16 17:09:00 CDT, FOR ICU USE ONLYNotes: WASTE: F/P - Sink; E - Municipal Trash Bin No Longer Active 11/04/2016 [facility] potassium chloride 20 mEq, 1 tab, Route: PO, Drug form: ERTAB, PRN, Dosing Weight 69.091, kg, PRN Abnormal Lab Result, Start date: 11/04/16 17:10:00 CDT, Duration: 30 day, Stop date: 12/04/16 17:09:00 CDT, FOR ICU USE ONLYNotes: (Same as: K-Dur 20) "Do Not Crush" With food and full glass of water No Longer Active 11/04/2016 [facility] sodium phosphate + sodium chloride 0.9% INJ 250 mL 15 mmol, 5 mL, Route: IVPB, PRN, Dosing Weight 69.091, kg, PRN Abnormal Lab Result, Start date: 11/04/16 17:10:00 CDT, Duration: 30 day, Stop date: 12/04/16 17:09:00 CDT, FOR ICU USE ONLY No Longer Active 11/04/2016 [facility] potassium phosphate-sodium phosphate 250 mg-280 mg-160 mg oral powder for reconstitution 2 pkt, Route: PO, Drug Form: PDR/REC, Dosing Weight 69.091, kg, PRN, PRN Abnormal Lab Result, FOR ICU USE ONLY, Start date: 11/04/16 17:10:00 CDT, Duration: 30 day, Stop date: 12/04/16 17:09:00 CDTNotes: (Same as: Phos-NaK) Each 1.5 gm pkt has 250mg phosphorous. Mix w/2.5oz water and stir. No Longer Active 11/04/2016 [facility] Magnesium Sulfate 2 gm, 50 mL, Route: IVPB, Drug form: INJ, PRN, Dosing Weight 69.091, kg, PRN Abnormal Lab Result, Start date: 11/04/16 17:10:00 CDT, Duration: 30 day, Stop date: 12/04/16 17:09:00 CDT, FOR ICU USE ONLYNotes: WASTE: F/P - Sink; E - Municipal Trash Bin No Longer Active 11/04/2016 [facility] potassium phosphate + sodium chloride 0.9% INJ 250 mL 15 mmol, 5 mL, Route: IVPB, PRN, Dosing Weight 69.091, kg, PRN Abnormal Lab Result, Start date: 11/04/16 17:10:00 CDT, Duration: 30 day, Stop date: 12/04/16 17:09:00 CDT, FOR ICU USE ONLYNotes: (Same as: K Phosphate.) 1 mMol phoshate has 1.47 mEq potassium Infuse over 4 hours No Longer Active 11/04/2016 [facility] Advair Diskus 250 mcg-50 mcg inhalation powder 1 puff, Route: INHALATION, Drug Form: AERO, Dosing Weight 69.091, kg, BID, Start date: 11/04/16 17:00:00 CDT, Duration: 30 day, Stop date: 12/04/16 9:00:00 CDT Inactive 11/04/2016 [facility] Epinephrine 0.01 MG/ML / Lidocaine Hydrochloride 10 MG/ML Injectable Solution 1 ml, Route: INTRADERM, Drug Form: INJ, Dosing Weight 69.091, kg, ONCE, Start date: 11/04/16 16:18:00 CDT, Stop date: 11/04/16 16:18:00 CDTNotes: (Same as: Xylocaine w/Epinephrine) Inactive 11/04/2016 [facility] niCARdipine 40 mg/ NS 200 ml IV Soln (premix) 40 mg 40 mg, 200 mL, Rate: Titrate, Start Dose: 5 mg/hr, Titration: 2.5 mg/hr every 15 minutes, Goal(s): systolic BP Notes: Same as: Cardene Concentration: (0.2 mg /1 ml ) No Longer Active 11/04/2016 [facility] Nitroglycerin 0.4 mg, 1 tab, Route: SL, Drug form: TAB, Q5Min, Dosing Weight 69.091, kg, PRN Chest Pain, Start date: 11/04/16 14:27:00 CDT, Duration: 3 doses or times, Stop date: Limited # of timesNotes: (Same as: Nitroquick, Nitrostat) "Do Not Crush" Sublingual tablet No Longer Active 11/04/2016 [facility] Sodium Chloride 0.154 MEQ/ML Injectable Solution 750 mL, Rate: 75 ml/hr, Infuse over: 10 hr, Route: IV, Dosing Weight 69.091 kg, Total Volume: 750, Start date: 11/04/16 14:27:00 CDT, Duration: 10 hr, Stop date: 11/05/16 0:26:00 CDT Inactive 11/04/2016 [facility] aspirin 81 mg tablet, enteric coated 81 mg=1 tab, PO, Daily, # 90 tab, 3 Refill(s) No Longer Active 11/04/2016 [facility] clopidogrel 75 MG Oral Tablet [Plavix] 75 mg=1 tab, PO, Daily, # 30 tab, 0 Refill(s) No Longer Active 11/04/2016 [facility] 0.6 ML Enoxaparin sodium 100 MG/ML Prefilled Syringe [Lovenox] SUB-Q, Q12H, 0 Refill(s) No Longer Active 11/04/2016 [facility] Sodium Chloride 0.154 MEQ/ML Injectable Solution 750 mL, Rate: 75 ml/hr, Infuse over: 10 hr, Route: IVPB, Dosing Weight 63.273 kg, Total Volume: 750, Start date: 11/04/16 7:00:00 CDT, Duration: 24 hr, Stop date: 11/05/16 6:59:00 CDT Inactive 11/04/2016 [facility] Warfarin 5 mg, 1 tab, Route: PO, Drug form: TAB, ONCE, Dosing Weight 63.273, kg, Start date: 09/12/16 15:00:00 BLAST FURNACE TENDER, Stop date: 09/12/16 15:00:00 CSTNotes: Nurse to ensure documentation of patient education per a nticoagulation policy. Avoid large intake of vitamin-K containing foods diet. WASTE: F/P - P Waste Black; E - P Waste Black (Same As: Coumadin) Inactive 09/12/2016 [facility] valsartan 80 mg oral tablet 80 mg=1 tab, PO, Daily, # 90 tab, 2 Refill(s) Active 09/12/2016 [facility] metoprolol 25 mg oral tablet, extended release 25 mg=1 tab, PO, Q12H, # 60 tab, 2 Refill(s) Active 09/12/2016 [facility] Warfarin Sodium 3 MG Oral Tablet [Coumadin] 3 mg=1 tab, PO, Daily, # 7 tab, 0 Refill(s) Active 09/12/2016 [facility] tiotropium 0.018 MG/ACTUAT Inhalant Powder [Spiriva] 18 microgram=1 inhalation, INHALATION, Daily, # 90 ea, 0 Refill(s) Active 09/12/2016 [facility] Hydrochlorothiazide 12.5 MG Oral Capsule 12.5 mg=1 cap, PO, Daily, # 30 cap, 2 Refill(s) Active 09/12/2016 [facility] simvastatin 40 mg oral tablet 40 mg=1 tab, PO, Bedtime, # 90 tab, 2 Refill(s) Active 09/12/2016 [facility] enoxaparin 60 mg/0.6 mL subcutaneous solution 60 mg=0.6 mL, SUB-Q, [id number], stop taking when instructed by primary doctor, your INR will need to be between 2.0-2.5, # 10 mL, 0 Refill(s) Active 09/12/2016 [facility] Tylenol 650 mg, 2 tab, Route: PO, Drug form: TAB, Q12H, Dosing Weight 63.273, kg, PRN Pain Score 1-3, Priority: NOW, Start date: 09/12/16 9:09:00 BLAST FURNACE TENDER, Duration: 30 day, Stop date: 10/12/16 9:08:00 CSTNotes: Do not exceed 4 gm/day. (Same as: Tylenol) Inactive 09/12/2016 [facility] Warfarin 3 mg, Route: PO, Daily, Dosing Weight 63.273, kg, Start date: 09/12/16 9:00:00 BLAST FURNACE TENDER, Duration: 30 day, Stop date: 10/11/16 9:00:00 BLAST F[employer]NACE TENDER No Longer Active 09/12/2016 [facility] valsartan 80 mg, 1 tab, Route: PO, Drug form: TAB, Daily, Dosing Weight 63.273, kg, Start date: 09/12/16 9:00:00 [employer] F[employer]CE TENDER, Duration: 30 day, Stop date: 10/11/16 9:00:00 CSTNotes: Same as Diovan Inactive 09/12/2016 [facility] valsartan 40 mg, 1 tab, Route: PO, Drug form: TAB, ONCE, Dosing Weight 63.273, kg, Start date: 09/12/16 5:28:00 BLAST F[employer]NACE TENDER, Stop date: 09/12/16 5:28:00 CSTNotes: Same as Fatoumata Inactive 09/12/2016 [facility] Magnesium Oxide 800 mg, 2 tab, Route: PO, Drug form: TAB, PRN, Dosing Weight 63.273, kg, PRN Abnormal Lab Result, For NON-ICU Patients Only., Start date: 09/12/16 4:19:00 BLAST F[employer]NACE TENDER, Duration: 30 day, Stop date: 10/12/16 4 :18:00 CSTNotes: (Same as: Mag-Ox 400) Magnesium oxide 981cm=759gb elemental magnesium Dose=____mg magnesium oxide (___mg elemental magnesium) Inactive 09/12/2016 [facility] Calcium Gluconate 2 gm, 20 mL, Route: IVPB, PRN, Dosing Weight 63.273, kg, PRN Abnormal Lab Result, For NON-ICU Patients Only., Start date: 09/12/16 4:19:00 BLAST F[employer]NACE TENDER, Duration: 30 day, Stop date: 10/12/16 4:18:00 CSTNotes: WASTE: F/P - Sink; E - Municipal Trash Bin Inactive 09/12/2016 [facility] Magnesium Sulfate 1 gm, 100 mL, Route: IVPB, Drug form: INJ, PRN, Dosing Weight 63.273, kg, PRN Abnormal Lab Result, For NON-ICU Patients Only., Start date: 09/12/16 4:19:00 BLAST FURNACE TENDER, Duration: 30 day, Stop date: 10/12/16 4:18:00 CSTNotes: WASTE: F/P - Sink; E - Municipal Trash Bin Inactive 09/12/2016 [facility] sodium phosphate + sodium chloride 0.9% INJ 250 mL 15 mmol, 5 mL, Route: IVPB, PRN, Dosing Weight 63.273, kg, PRN Abnormal Lab Result, For NON-ICU Patients Only., Start date: 09/12/16 4:19:00 BLAST FURNACE TENDER, Duration: 30 day, Stop date: 10/12/16 4:18:00 BLAST FURNACE TENDER Inactive 09/12/2016 [facility] potassium phosphate + sodium chloride 0.9% INJ 250 mL 30 mmol, 10 mL, Route: IVPB, PRN, Dosing Weight 63.273, kg, PRN Abnormal Lab Result, For NON-ICU Patients Only., Start date: 09/12/16 4:19:00 BLAST F[employer]NACE TENDER, Duration: 30 day, Stop date: 10/12/16 4:18:00 CSTNotes: (Same as: K Phosphate.) 1 mMol phoshate has 1.47 mEq potassium Infuse over 4 hours Inactive 09/12/2016 [facility] potassium chloride 10 mEq, 50 mL, Route: IVPB, Drug form: INJ, PRN, Dosing Weight 63.273, kg, PRN Abnormal Lab Result, For NON-ICU Patients Only, Start date: 09/12/16 4:19:00 [employer] F[employer]NACE TENDER, Duration: 30 day, Stop date: 10/12/16 4:18:00 CSTNotes: (Same as: KCL) Infuse over 2 hours. Inactive 09/12/2016 [facility] potassium phosphate-sodium phosphate 250 mg-280 mg-160 mg oral powder for reconstitution 2 pkt, Route: PO, Drug Form: PDR/REC, Dosing Weight 63.273, kg, PRN, PRN Abnormal Lab Result, For NON-ICU Patients Only, Start date: 09/12/16 4:19:00 [employer] F[employer]NACE TENDER, Duration: 30 day, Stop date: 10/12/16 4:18:00 CSTNotes: (Same as: Phos-NaK) Each 1.5 gm pkt has 250mg phosphorous. Mix w/2.5oz water and stir. Inactive 09/12/2016 [facility] Coumadin 5 mg, 1 tab, Route: PO, Drug form: TAB, ONCE, Dosing Weight 63.273, kg, Start date: 09/11/16 17:00:00 BLAST F[employer]NACE TENDER, Stop date: 09/11/16 17:00:00 CSTNotes: Nurse to ensure documentation of patient education per a nticoagulation policy. Avoid large intake of vitamin-K containing foods diet. WASTE: F/P - P Waste Black; E - P Waste Black (Same As: Coumadin) Inactive 09/11/2016 [facility] Warfarin 5 mg, Route: PO, ONCE, Dosing Weight 63.273, kg, Start date: 09/11/16 11:04:00 BLAST FURNACE TENDER, Stop date: 09/11/16 11:04:00 BLAST FURNACE TENDER Inactive 09/11/2016 [facility] Losartan 100 mg, 2 tab, Route: PO, Drug form: TAB, Daily, Dosing Weight 63.273, kg, Start date: 09/11/16 9:00:00 BLAST F[employer]NACE TENDER, Duration: 30 day, Stop date: 10/10/16 9:00:00 CSTNotes: (Same as: Cozaar) Inactive 09/11/2016 [facility] metoprolol extended release 25 mg, 1 tab, Route: PO, Drug form: ERTAB, Q12H, Start date: 09/10/16 21:00:00 BLAST F[employer]NACE TENDER, Duration: 30 day, Stop date: 10/10/16 9:00:00 CSTNotes: (Same as: Toprol XL) Do Not Crush No Longer Active 09/11/2016 [facility] Losartan 50 mg, 1 tab, Route: PO, Drug form: TAB, ONCE, Dosing Weight 63.273, kg, Start date: 09/10/16 16:38:00 BLAST F[employer]NACE TENDER, Stop date: 09/10/16 16:38:00 CSTNotes: (Same as: Cozaar) Inactive 09/10/2016 [facility] Coreg 3.125 mg, 1 tab, Route: PO, Drug form: TAB, Q12H, Dosing Weight 63.273, kg, Start date: 09/09/16 19:30:00 BLAST F[employer]NACE TENDER, Duration: 30 day, Stop date: 10/09/16 9:00:00 CSTNotes: Give with food. (Same As: Coreg) No Longer Active 09/10/2016 [facility] Dextrose 50% Syringe 25 gm, 50 mL, Route: IVP, Drug Form: INJ, Dosing Weight 63.273, kg, PRN, PRN Blood Glucose Results, Start date: 09/09/16 17:21:00 BLAST F[employer]NACE TENDER, Duration: 30 day, Stop date: 10/09/16 17:20:00 BLAST FURNACE TENDER No Longer Active 09/09/2016 [facility] Glucagon 1 mg, Route: IM, Drug form: PDR/INJ, PRN, Dosing Weight 63.273, kg, PRN Blood Glucose Results, Start date: 09/09/16 17:21:00 BLAST FURNACE TENDER, Duration: 30 day, Stop date: 10/09/16 17:20:00 BLAST FURNACE TENDER No Longer Active 09/09/2016 [facility] Plavix 600 mg, 2 tab, Route: PO, Drug form: TAB, ONCE, Dosing Weight 63.273, kg, Start date: 09/09/16 16:46:00 BLAST F[employer]NACE TENDER, Duration: 1 doses or times, Stop date: 09/09/16 16:46:00 CSTNotes: ( Same as: Plavix) Inactive 09/09/2016 [facility] Nitroglycerin 0.4 mg, 1 tab, Route: SL, Drug form: TAB, Q5Min, Dosing Weight 63.273, kg, PRN Chest Pain, Start date: 09/09/16 16:37:00 BLAST F[employer]NACE TENDER, Duration: 3 doses or times, Stop date: Limited # of timesNotes: (Same as: Nitroquick, Nitrostat) "Do Not Crush" Sublingual tablet No Longer Active 09/09/2016 [facility] Sodium Chloride 0.154 MEQ/ML Injectable Solution 750 mL, Rate: 75 ml/hr, Infuse over: 10 hr, Route: IV, Dosing Weight 63.273 kg, Total Volume: 750, Start date: 09/09/16 16:37:00 BLAST FURNACE TENDER, Duration: 10 hr, Stop date: 09/10/16 2:36:00 BLAST FURNACE TENDER No Longer Active 09/09/2016 [facility] clopidogrel 75 mg, Route: PO, Drug form: TAB, Daily, Dosing Weight 63.273, kg, Start date: 09/09/16 9:00:00 BLAST FURNACE TENDER, Duration: 30 day, Stop date: 10/08/16 9:00:00 BLAST F[employer]NACE TENDER No Longer Active 09/09/2016 [facility] Niacin 500 mg, 1 tab, Route: PO, Drug form: TAB, Daily, Dosing Weight 63.273, kg, Start date: 09/09/16 9:00:00 BLAST F[employer]NACE TENDER, Duration: 30 day, Stop date: 10/08/16 9:00:00 CSTNotes: With food. No Longer Active 09/09/2016 [facility] Sodium Chloride 0.154 MEQ/ML Injectable Solution 750 mL, Rate: 75 ml/hr, Infuse over: 10 hr, Route: IV, Dosing Weight 63.273 kg, Total Volume: 750, Start date: 09/09/16 4:11:00 BLAST FURNACE TENDER, Duration: 24 hr, Stop date: 09/10/16 4:10:00 BLAST F[employer]NACE TENDER No Longer Active 09/09/2016 [facility] Enoxaparin 60 mg, 0.6 mL, Route: SUB-Q, Drug form: INJ, [id number], Dosing Weight 63.273, kg, For CrCL Notes: Nurse to ensure documentation of patient education per anticoagulation policy. (Same as: Lovenox) No Longer Active 09/09/2016 [facility] Simvastatin 40 mg, 1 tab, Route: PO, Drug form: TAB, Bedtime, Dosing Weight 63.273, kg, Start date: 09/08/16 21:00:00 BLAST F[employer]NACE TENDER, Duration: 30 day, Stop date: 10/07/16 21:00:00 CSTNotes: (Same as: Zocor) No Longer Active 09/09/2016 [facility] Advair Diskus 250 mcg-50 mcg inhalation powder 1 puff, Route: INHALATION, Drug Form: AERO, Dosing Weight 63.273, kg, BID, Start date: 09/08/16 17:00:00 BLAST FURNACE TENDER, Duration: 30 day, Stop date: 10/08/16 9:00:00 BLAST FURNACE TENDER Inactive 09/08/2016 [facility] Losartan 25 mg, 1 tab, Route: PO, Drug form: TAB, ONCE, Dosing Weight 63.273, kg, Priority: NOW, Start date: 09/08/16 15:52:00 BLAST FURNACE TENDER, Stop date: 09/08/16 15:52:00 CSTNotes: (Same as: Cozaar) Inactive 09/08/2016 [facility] budesonide-formoterol 160 mcg-4.5 mcg/inh inhalation aerosol with adapter 2 inhalation, Route: INHALATION, Drug Form: AERO/A, RBID, Start date: 09/08/16 13:22:00 BLAST FURNACE TENDER, Duration: 30 day, Stop date: 10/08/16 8:00:00 CSTNotes: (Same as: Symbicort) WASTE: Aerosol - Return to Pharmacy No Longer Active 09/08/2016 [facility] niacin 500 mg oral tablet 500 mg=1 tab, PO, Daily, 0 Refill(s) Active 09/08/2016 [facility] Warfarin Sodium 3 MG Oral Tablet [Coumadin] 3 mg=1 tab, PO, Daily, 0 Refill(s) No Longer Active 09/08/2016 [facility] aspirin 81 mg tablet, enteric coated 81 mg=1 tab, PO, Daily, # 90 tab, 3 Refill(s) Active 09/08/2016 [facility] Advair Diskus 250 mcg-50 mcg inhalation powder 1 puff, INHALATION, BID, 0 Refill(s) Active 09/08/2016 [facility] Bisoprolol Fumarate 5 MG / Hydrochlorothiazide 6.25 MG Oral Tablet 1 tab, PO, Daily, 0 Refill(s) Active 09/08/2016 [facility] losartan 25 mg oral tablet 25 mg=1 tab, PO, Daily, 0 Refill(s) No Longer Active 09/08/2016 [facility] simvastatin 40 mg oral tablet 40 mg=1 tab, PO, Bedtime, 0 Refill(s) No Longer Active 09/08/2016 [facility] Spiriva 18 microgram, INHALATION, Daily, # 30 ea, 0 Refill(s) No Longer Active 09/08/2016 [facility] potassium chloride 60 mEq, 3 tab, Route: PO, Drug form: ERTAB, ONCE, Dosing Weight 63.273, kg, Start date: 09/08/16 10:27:00 BLAST FURNACE TENDER, Stop date: 09/08/16 10:27:00 CSTNotes: (Same as: K-Dur 20) "Do Not Crush" With food and full glass of water Inactive 09/08/2016 [facility] Magnesium Oxide 800 mg, 2 tab, Route: PO, Drug form: TAB, Q4H, Dosing Weight 63.273, kg, Start date: 09/08/16 10:26:00 BLAST FURNACE TENDER, Duration: 2 doses or times, Stop date: 09/08/16 12:00:00 CSTNotes: (Same as: Mag-Ox 400) Ma gnesium oxide 268se=162cm elemental magnesium Dose=____mg magnesium oxide (___mg elemental magnesium) Inactive 09/08/2016 [facility] clopidogrel 75 mg, 1 tab, Route: PO, Drug form: TAB, Daily, Dosing Weight 63.273, kg, Start date: 09/08/16 10:02:00 BLAST FURNACE TENDER, Duration: 30 day, Stop date: 10/08/16 9:00:00 CSTNotes: (Same As: Plavix) No Longer Active 09/08/2016 [facility] tiotropium 0.018 MG/ACTUAT Inhalant Powder [Spiriva] 18 microgram, 1 inhalation, Route: INHALATION, Drug form: CAP, Daily, Dosing Weight 63.273, kg, Start date: 09/08/16 9:00:00 BLAST FURNACE TENDER, Duration: 30 day, Stop date: 10/07/16 9:00:00 CSTNotes: (Same As: Spiriva) No Longer Active 09/08/2016 [facility] Losartan 50 mg, 1 tab, Route: PO, Drug form: TAB, Daily, Dosing Weight 63.273, kg, Start date: 09/08/16 9:00:00 BLAST FURNACE TENDER, Stop date: 10/07/16 9:00:00 CSTNotes: (Same as: Cozaar) No Longer Active 09/08/2016 [facility] Hydrochlorothiazide 12.5 mg, 1 cap, Route: PO, Drug form: CAP, Daily, Dosing Weight 63.273, kg, Start date: 09/08/16 9:00:00 BLAST FURNACE TENDER, Duration: 30 day, Stop date: 10/07/16 9:00:00 CSTNotes: (Same as: Microzide) With food. No Longer Active 09/08/2016 [facility] Docusate 100 mg, 1 cap, Route: PO, Drug form: CAP, BID, Dosing Weight 63.273, kg, Start date: 09/08/16 9:00:00 BLAST FURNACE TENDER, Duration: 30 day, Stop date: 10/07/16 17:00:00 CSTNotes: (Same as: Colace) (Do Not Crush) No Longer Active 09/08/2016 [facility] Aspirin 81 mg, 1 tab, Route: PO, Drug form: ECTAB, Daily, Dosing Weight 63.273, kg, Start date: 09/08/16 9:00:00 BLAST FURNACE TENDER, Duration: 30 day, Stop date: 10/07/16 9:00:00 CSTNotes: Do not crush or chew. (Same As: Ecotrin) No Longer Active 09/08/2016 [facility] clopidogrel 75 mg, 1 tab, Route: PO, Drug form: TAB, Daily, Dosing Weight 63.273, kg, Start date: 09/08/16 9:00:00 BLAST FURNACE TENDER, Duration: 30 day, Stop date: 10/07/16 9:00:00 CSTNotes: (Same As: Plavix) Inactive 09/08/2016 [facility] Heparin 30 unit/kg Bolus (Heparin Dosing Weight) Pharmacy To Manage, Route: IVP, PRN, Drug form: INJ, PRN, Heparin Protocol, Start date: 09/08/16 7:28:00 BLAST FURNACE TENDER Stop date: 10/08/16 7:27:00 BLAST FURNACE TENDER, 30 day Inactive 09/08/2016 [facility] Heparin 60 unit/kg Bolus (Heparin Dosing Weight) Pharmacy To Manage, Route: IVP, PRN, Drug form: INJ, PRN, Heparin Protocol, Start date: 09/08/16 7:28:00 BLAST FURNACE TENDER Stop date: 10/08/16 7:27:00 BLAST FURNACE TENDER, 30 day Inactive 09/08/2016 [facility] heparin additive 25,000 unit [12 unit/kg/hr] + Premix Diluent Dextrose 5% 500 mL 500 mL, Rate: 15.19 ml/hr, Infuse over: 32.9 hr, Route: IV, Dosing Weight 63.273 kg, Total Volume: 500 mL, Start date: 09/08/16 7:28:00 BLAST FURNACE TENDER, Duration: 30 day, Stop date: 10/08/16 7:27:00 BLAST FURNACE TENDER Inactive 09/08/2016 [facility] Ondansetron 4 mg, 2 mL, Route: IVP, Drug form: INJ, Q6H, Dosing Weight 63.273, kg, PRN Nausea & Vomiting, Start date: 09/08/16 7:24:00 BLAST FURNACE TENDER, Duration: 30 day, Stop date: 10/08/16 7:23:00 CSTNotes: (Same as: Dami) MEDICATION WASTE Product Size: 4 mg Product Wasted: ___ mg No Longer Active 09/08/2016 [facility] Acetaminophen 325 MG / Hydrocodone Bitartrate 5 MG Oral Tablet 1 tab, Route: PO, Drug Form: TAB, Dosing Weight 63.273, kg, Q4H, PRN Pain Score 4-6, Start date: 09/08/16 7:24:00 BLAST FURNACE TENDER, Duration: 30 day, Stop date: 10/08/16 7:23:00 CSTNotes: (Same as: [place] 325/5) Do not exceed 4gm/day of acetaminophen. No Longer Active 09/08/2016 [facility] Acetaminophen 650 mg, 2 tab, Route: PO, Drug form: TAB, Q4H, Dosing Weight 63.273, kg, PRN Pain 1-3/Temp > 100.4 F, Start date: 09/08/16 7:24:00 BLAST FURNACE TENDER, Duration: 30 day, Stop date: 10/08/16 7:23:00 CSTNotes: Do not exceed 4 gm/day. (Same as: Tylenol) No Longer Active 09/08/2016 [facility] Morphine 2 mg, 1 mL, Route: IVP, Drug form: INJ, Q4H, Dosing Weight 63.273, kg, PRN Pain Score 7-10, Start date: 09/08/16 7:24:00 BLAST FURNACE TENDER, Duration: 30 day, Stop date: 10/08/16 7:23:00 CSTNotes: (Same as:MORPhine Sulfate) No Longer Active 09/08/2016 [facility] Allergies, Adverse Reactions, Alerts Substance Category Reaction Severity Reaction type Status Date Reported Comments Source Immunizations Immunization Date Given Site Status Last Updated Comments Source pneumococcal 13-valent vaccine 07/07/2017 Not Given [facility] Results Order Name Results Value Reference Range Date Interpretation Comments Source HEMATOLOGY MCH 29.4 pg 27.0 - 31.0 07/09/2017 [facility] HEMATOLOGY MCHC 33.0 g/dL 32.0 - 36.0 07/09/2017 [facility] HEMATOLOGY MPV 7.3 fL 7.4 - 10.4 07/09/2017 [facility] HEMATOLOGY RDW 18.2 % 11.5 - 14.5 07/09/2017 [facility] HEMATOLOGY Platelet 331 K/CMM 133 - 450 07/09/2017 [facility] HEMATOLOGY WBC 9.9 K/CMM 3.7 - 10.4 07/09/2017 [facility] HEMATOLOGY RBC 2.83 M/CMM 4.20 - 5.40 07/09/2017 [facility] HEMATOLOGY MCV 89.0 fL 80.0 - 98.0 07/09/2017 [facility] HEMATOLOGY Hgb 8.3 g/dL 12.0 - 16.0 07/09/2017 [facility] HEMATOLOGY Hct 25.2 % 36.0 - 48.0 07/09/2017 [facility] ANEMIA STUDY Ferritin Lvl 57 ng/mL 5 - 204 07/09/2017 [facility] ANEMIA STUDY TIBC 330 ug/dl 228 - 428 07/09/2017 [facility] ANEMIA STUDY Iron 17 ug/dl 30 - 160 07/09/2017 [facility] ANEMIA STUDY UIBC 313 ug/dl 110 - 370 07/09/2017 [facility] ANEMIA STUDY % Satur Fe 5 % 12 - 57 07/09/2017 [facility] CHEM PANEL Vitamin D, 25-OH, Total 23.6 ng/mL 30.0 - 100.0 07/09/2017 [facility] PARATHYROID PROFILE PTH Intact 116.9 pg/mL 11.1 - 79.5 07/09/2017 [facility] CHEM PANEL eGFR 91 mL/min/1.73m2 07/08/2017 Result Comment: The eGFR is calculated using the CKD-EPI formula. In most young, healthy individuals the eGFR will be >90 mL/min/1.73m2. The eGFR declines with age. An eGFR of 60-89 may be normal in some populations, particularly the elderly, for whom the CKD-EPI formula has not been extensively validated. Use of the eGFR is not recommended in the following populations: Individuals with unstable creatinine concentrations, including patients and those with serious co-morbid conditions. Patients with extremes in muscle mass or diet. The data above are obtained from the National Kidney Disease Education Program (NKDEP) which additionally recommends that when the eGFR is used in patients with extremes of body mass index for purposes of drug dosing, the eGFR should be multiplied by the estimated BMI. [facility] CHEM PANEL Calcium Lvl 7.8 mg/dL 8.5 - 10.5 07/08/2017 [facility] CHEM PANEL Glucose Lvl 92 mg/dL 70 - 99 07/08/2017 [facility] CHEM PANEL BUN 14 mg/dL 7 - 22 07/08/2017 [facility] CHEM PANEL Creatinine Lvl 0.60 mg/dL 0.50 - 1.40 07/08/2017 [facility] CHEM PANEL Sodium Lvl 144 meq/L 135 - 145 07/08/2017 [facility] CHEM PANEL Potassium Lvl 3.9 meq/L 3.5 - 5.1 07/08/2017 [facility] CHEM PANEL Chloride Lvl 114 meq/L 95 - 109 07/08/2017 [facility] CHEM PANEL CO2 22 meq/L 24 - 32 07/08/2017 [facility] CHEM PANEL AGAP 11.9 meq/L 10.0 - 20.0 07/08/2017 [facility] HEMATOLOGY INR 1.16 0.85 - 1.17 07/08/2017 [facility] HEMATOLOGY PT 14.8 s 12.0 - 14.7 07/08/2017 [facility] HEMATOLOGY MCHC 33.4 g/dL 32.0 - 36.0 07/08/2017 [facility] HEMATOLOGY MCH 29.8 pg 27.0 - 31.0 07/08/2017 [facility] HEMATOLOGY RDW 19.0 % 11.5 - 14.5 07/08/2017 [facility] HEMATOLOGY MPV 7.7 fL 7.4 - 10.4 07/08/2017 [facility] HEMATOLOGY Hgb 8.7 g/dL 12.0 - 16.0 07/08/2017 [facility] HEMATOLOGY MCV 89.3 fL 80.0 - 98.0 07/08/2017 [facility] HEMATOLOGY RBC 2.92 M/CMM 4.20 - 5.40 07/08/2017 [facility] HEMATOLOGY WBC 10.6 K/CMM 3.7 - 10.4 07/08/2017 [facility] HEMATOLOGY Hct 26.1 % 36.0 - 48.0 07/08/2017 [facility] HEMATOLOGY Platelet 326 K/CMM 133 - 450 07/08/2017 [facility] HEMATOLOGY Segs-Bands # 8.0 K/CMM 1.5 - 8.1 07/08/2017 [facility] HEMATOLOGY Eosinophils 0.7 % 0.0 - 4.0 07/08/2017 [facility] HEMATOLOGY Basophils 0.3 % 0.0 - 1.0 07/08/2017 [facility] HEMATOLOGY Eosinophils # 0.1 K/CMM 0.0 - 0.5 07/08/2017 [facility] HEMATOLOGY Lymphocytes # 1.6 K/CMM 1.0 - 5.5 07/08/2017 [facility] HEMATOLOGY Monocytes # 0.9 K/CMM 0.0 - 0.8 07/08/2017 [facility] HEMATOLOGY Segs 75.9 % 45.0 - 75.0 07/08/2017 [facility] HEMATOLOGY Monocytes 8.3 % 2.0 - 12.0 07/08/2017 [facility] HEMATOLOGY Lymphocytes 14.8 % 20.0 - 40.0 07/08/2017 [facility] BLOOD BANK RESULTS RBC product Product available (07/07/17 10:01 PM) 07/08/2017 [facility] HEMATOLOGY Hct 20.6 % 36.0 - 48.0 07/08/2017 [facility] HEMATOLOGY Hgb 6.7 g/dL 12.0 - 16.0 07/08/2017 Result Comment: Critical Result(s) called to Maureen Benites at 07/07/2017 21:56_ by_lsa. Read back OK. [facility] CHEM PANEL Phosphorus 3.8 mg/dL 2.5 - 4.5 07/07/2017 [facility] CHEM PANEL Magnesium Lvl 1.9 mg/dL 1.8 - 2.4 07/07/2017 [facility] ELECTROLYTES AGAP 14.1 meq/L 10.0 - 20.0 07/07/2017 [facility] ELECTROLYTES B/C Ratio 39 6 - 25 07/07/2017 [facility] ELECTROLYTES Globulin 3.1 g/dL 2.7 - 4.2 07/07/2017 [facility] ELECTROLYTES A/G Ratio 1.0 0.7 - 1.6 07/07/2017 [facility] ELECTROLYTES eGFR 62 mL/min/1.73m2 07/07/2017 Result Comment: The eGFR is calculated using the CKD-EPI formula. In most young, healthy individuals the eGFR will be >90 mL/min/1.73m2. The eGFR declines with age. An eGFR of 60-89 may be normal in some populations, particularly the elderly, for whom the CKD-EPI formula has not been extensively validated. Use of the eGFR is not recommended in the following populations: Individuals with unstable creatinine concentrations, including patients and those with serious co-morbid conditions. Patients with extremes in muscle mass or diet. The data above are obtained from the National Kidney Disease Education Program (NKDEP) which additionally recommends that when the eGFR is used in patients with extremes of body mass index for purposes of drug dosing, the eGFR should be multiplied by the estimated BMI. [facility] ELECTROLYTES CO2 23 meq/L 24 - 32 07/07/2017 [facility] ELECTROLYTES Calcium Lvl 8.2 mg/dL 8.5 - 10.5 07/07/2017 [facility] ELECTROLYTES Sodium Lvl 142 meq/L 135 - 145 07/07/2017 [facility] ELECTROLYTES Chloride Lvl 109 meq/L 95 - 109 07/07/2017 [facility] ELECTROLYTES Potassium Lvl 4.1 meq/L 3.5 - 5.1 07/07/2017 [facility] ELECTROLYTES Creatinine Lvl 0.93 mg/dL 0.50 - 1.40 07/07/2017 [facility] ELECTROLYTES Glucose Lvl 126 mg/dL 70 - 99 07/07/2017 [facility] ELECTROLYTES BUN 36 mg/dL 7 - 22 07/07/2017 [facility] ELECTROLYTES Total Protein 6.1 g/dL 6.4 - 8.4 07/07/2017 [facility] ELECTROLYTES ALT 23 unit/L 0 - 65 07/07/2017 [facility] ELECTROLYTES AST 14 unit/L 0 - 37 07/07/2017 [facility] ELECTROLYTES Albumin Lvl 3.0 g/dL 3.5 - 5.0 07/07/2017 [facility] ELECTROLYTES Alk Phos 59 unit/L 39 - 136 07/07/2017 [facility] ELECTROLYTES Bili Total 0.2 mg/dL 0.2 - 1.3 07/07/2017 [facility] HEMATOLOGY Basophils 0.3 % 0.0 - 1.0 07/07/2017 [facility] HEMATOLOGY Lymphocytes 12.7 % 20.0 - 40.0 07/07/2017 [facility] HEMATOLOGY Eosinophils 0.4 % 0.0 - 4.0 07/07/2017 [facility] HEMATOLOGY Monocytes 7.2 % 2.0 - 12.0 07/07/2017 [facility] HEMATOLOGY Segs 79.4 % 45.0 - 75.0 07/07/2017 [facility] HEMATOLOGY Eosinophils # 0.1 K/CMM 0.0 - 0.5 07/07/2017 [facility] HEMATOLOGY Lymphocytes # 1.7 K/CMM 1.0 - 5.5 07/07/2017 [facility] HEMATOLOGY Segs-Bands # 10.3 K/CMM 1.5 - 8.1 07/07/2017 [facility] HEMATOLOGY Monocytes # 0.9 K/CMM 0.0 - 0.8 07/07/2017 [facility] HEMATOLOGY MPV 7.3 fL 7.4 - 10.4 07/07/2017 [facility] HEMATOLOGY Platelet 405 K/CMM 133 - 450 07/07/2017 [facility] HEMATOLOGY RBC 2.59 M/CMM 4.20 - 5.40 07/07/2017 [facility] HEMATOLOGY MCH 28.7 pg 27.0 - 31.0 07/07/2017 [facility] HEMATOLOGY MCHC 31.5 g/dL 32.0 - 36.0 07/07/2017 [facility] HEMATOLOGY RDW 17.6 % 11.5 - 14.5 07/07/2017 [facility] HEMATOLOGY WBC 13.0 K/CMM 3.7 - 10.4 07/07/2017 [facility] HEMATOLOGY MCV 91.0 fL 80.0 - 98.0 07/07/2017 [facility] BLOOD BANK RESULTS Antibody Scrn Negative (07/06/17 11:54 PM) 07/07/2017 [facility] BLOOD BANK RESULTS ABO/Rh O NEG 07/07/2017 [facility] HEMATOLOGY PTT 30.7 s 22.9 - 35.8 07/07/2017 [facility] HEMATOLOGY INR 1.52 0.85 - 1.17 07/07/2017 [facility] HEMATOLOGY PT 18.4 s 12.0 - 14.7 07/07/2017 [facility] CHEM PANEL eGFR 54 mL/min/1.73m2 07/07/2017 Result Comment: The eGFR is calculated using the CKD-EPI formula. In most young, healthy individuals the eGFR will be >90 mL/min/1.73m2. The eGFR declines with age. An eGFR of 60-89 may be normal in some populations, particularly the elderly, for whom the CKD-EPI formula has not been extensively validated. Use of the eGFR is not recommended in the following populations: Individuals with unstable creatinine concentrations, including patients and those with serious co-morbid conditions. Patients with extremes in muscle mass or diet. The data above are obtained from the National Kidney Disease Education Program (NKDEP) which additionally recommends that when the eGFR is used in patients with extremes of body mass index for purposes of drug dosing, the eGFR should be multiplied by the estimated BMI. [facility] CHEM PANEL Potassium Lvl 3.9 meq/L 3.5 - 5.1 07/07/2017 [facility] CHEM PANEL Chloride Lvl 107 meq/L 95 - 109 07/07/2017 [facility] CHEM PANEL BUN 41 mg/dL 7 - 22 07/07/2017 [facility] CHEM PANEL Creatinine Lvl 1.03 mg/dL 0.50 - 1.40 07/07/2017 [facility] CHEM PANEL Sodium Lvl 143 meq/L 135 - 145 07/07/2017 [facility] CHEM PANEL Glucose Lvl 157 mg/dL 70 - 99 07/07/2017 [facility] CHEM PANEL Calcium Lvl 8.3 mg/dL 8.5 - 10.5 07/07/2017 [facility] CHEM PANEL CO2 26 meq/L 24 - 32 07/07/2017 [facility] CHEM PANEL AGAP 13.9 meq/L 10.0 - 20.0 07/07/2017 [facility] HEMATOLOGY Monocytes # 0.9 K/CMM 0.0 - 0.8 07/07/2017 [facility] HEMATOLOGY Lymphocytes # 1.4 K/CMM 1.0 - 5.5 07/07/2017 [facility] HEMATOLOGY Segs-Bands # 9.6 K/CMM 1.5 - 8.1 07/07/2017 [facility] HEMATOLOGY Monocytes 7.2 % 2.0 - 12.0 07/07/2017 [facility] HEMATOLOGY Eosinophils 0.4 % 0.0 - 4.0 07/07/2017 [facility] HEMATOLOGY Basophils 0.4 % 0.0 - 1.0 07/07/2017 [facility] HEMATOLOGY Lymphocytes 11.7 % 20.0 - 40.0 07/07/2017 [facility] HEMATOLOGY Segs 80.3 % 45.0 - 75.0 07/07/2017 [facility] CHEM PANEL Lactic Acid Lvl 1.1 mMol/L 0.5 - 2.2 03/10/2017 [facility] CHEM PANEL Lactic Acid Lvl 2.2 mMol/L 0.5 - 2.2 03/10/2017 [facility] URINE AND STOOL UA Bacteria Few /HPF None Seen /HPF 03/10/2017 [facility] URINE AND STOOL UA RBC 0-2 /HPF 0 - 2 03/10/2017 [facility] URINE AND STOOL UA WBC 3-5 /HPF None Seen /HPF 03/10/2017 [facility] URINE AND STOOL UA Sq Epi Occasional /LPF Few /LPF 03/10/2017 [facility] URINE AND STOOL UA Leuk Est Moderate *ABN* (03/10/17 1:29 AM) Negative 03/10/2017 [facility] URINE AND STOOL UA Nitrite Positive *ABN* (03/10/17 1:29 AM) Negative 03/10/2017 [facility] URINE AND STOOL UA Urobilinogen 0.2 EU/dL 0.1 - 1.0 03/10/2017 [facility] URINE AND STOOL UA Blood Moderate *ABN* (03/10/17 1:29 AM) Negative 03/10/2017 [facility] URINE AND STOOL UA Bili Negative *NA* (03/10/17 1:29 AM) Negative 03/10/2017 [facility] URINE AND STOOL UA Ketones Negative *NA* (03/10/17 1:29 AM) Negative 03/10/2017 [facility] URINE AND STOOL UA Glucose Negative (03/10/17 1:29 AM) Negative 03/10/2017 [facility] URINE AND STOOL UA Protein Trace *ABN* (03/10/17 1:29 AM) Negative 03/10/2017 [facility] URINE AND STOOL UA pH 5.5 5.0 - 8.0 03/10/2017 [facility] URINE AND STOOL UA Spec Grav 1.024 <=1.030 03/10/2017 [facility] URINE AND STOOL UA Turbidity Slight Cloudy (8/1/17 1:29 AM) Clear 03/10/2017 [facility] URINE AND STOOL UA Color Yellow *NA* (03/10/17 1:29 AM) Yellow 03/10/2017 [facility] CARDIAC ENZYMES Troponin-I null 0.00 - 0.40 03/10/2017 [facility] CHEM PANEL Phosphorus 4.2 mg/dL 2.5 - 4.5 03/10/2017 [facility] CHEM PANEL Magnesium Lvl 2.0 mg/dL 1.8 - 2.4 03/10/2017 [facility] CHEM PANEL Lactic Acid WB 1.7 mmol/L 0.5 - 2.2 03/10/2017 [facility] ELECTROLYTES AGAP 14.5 meq/L 10.0 - 20.0 03/10/2017 [facility] ELECTROLYTES Glucose Lvl 144 mg/dL 70 - 99 03/10/2017 [facility] ELECTROLYTES eGFR 51 mL/min/1.73m2 03/10/2017 Result Comment: The eGFR is calculated using the CKD-EPI formula. In most young, healthy individuals the eGFR will be >90 mL/min/1.73m2. The eGFR declines with age. An eGFR of 60-89 may be normal in some populations, particularly the elderly, for whom the CKD-EPI formula has not been extensively validated. Use of the eGFR is not recommended in the following populations: Individuals with unstable creatinine concentrations, including patients and those with serious co-morbid conditions. Patients with extremes in muscle mass or diet. The data above are obtained from the National Kidney Disease Education Program (NKDEP) which additionally recommends that when the eGFR is used in patients with extremes of body mass index for purposes of drug dosing, the eGFR should be multiplied by the estimated BMI. [facility] ELECTROLYTES Calcium Lvl 9.1 mg/dL 8.5 - 10.5 03/10/2017 [facility] ELECTROLYTES CO2 25 meq/L 24 - 32 03/10/2017 [facility] ELECTROLYTES Creatinine Lvl 1.08 mg/dL 0.50 - 1.40 03/10/2017 [facility] ELECTROLYTES BUN 30 mg/dL 7 - 22 03/10/2017 [facility] ELECTROLYTES Chloride Lvl 102 meq/L 95 - 109 03/10/2017 [facility] ELECTROLYTES Potassium Lvl 4.5 meq/L 3.5 - 5.1 03/10/2017 [facility] ELECTROLYTES Sodium Lvl 137 meq/L 135 - 145 03/10/2017 [facility] HEMATOLOGY Hct 36.8 % 36.0 - 48.0 03/10/2017 [facility] HEMATOLOGY RBC 4.59 M/CMM 4.20 - 5.40 03/10/2017 [facility] HEMATOLOGY MCV 80.0 fL 80.0 - 98.0 03/10/2017 [facility] HEMATOLOGY Hgb 11.5 g/dL 12.0 - 16.0 03/10/2017 [facility] HEMATOLOGY MCH 25.1 pg 27.0 - 31.0 03/10/2017 [facility] HEMATOLOGY Platelet 369 K/CMM 133 - 450 03/10/2017 [facility] HEMATOLOGY MCHC 31.3 g/dL 32.0 - 36.0 03/10/2017 [facility] HEMATOLOGY MPV 7.9 fL 7.4 - 10.4 03/10/2017 [facility] HEMATOLOGY RDW 19.0 % 11.5 - 14.5 03/10/2017 [facility] HEMATOLOGY WBC 12.9 K/CMM 3.7 - 10.4 03/10/2017 [facility] HEMATOLOGY INR 1.52 0.85 - 1.17 03/10/2017 [facility] HEMATOLOGY PT 18.6 s 12.0 - 14.7 03/10/2017 [facility] HEMATOLOGY PTT 35.3 s 22.9 - 35.8 03/10/2017 [facility] HEMATOLOGY Lymphocytes # 1.7 K/CMM 1.0 - 5.5 03/10/2017 [facility] HEMATOLOGY Monocytes # 1.1 K/CMM 0.0 - 0.8 03/10/2017 [facility] HEMATOLOGY Basophils 0.4 % 0.0 - 1.0 03/10/2017 [facility] HEMATOLOGY Eosinophils 1.0 % 0.0 - 4.0 03/10/2017 [facility] HEMATOLOGY Segs-Bands # 9.9 K/CMM 1.5 - 8.1 03/10/2017 [facility] HEMATOLOGY Lymphocytes 13.1 % 20.0 - 40.0 03/10/2017 [facility] HEMATOLOGY Segs 76.8 % 45.0 - 75.0 03/10/2017 [facility] HEMATOLOGY Monocytes 8.7 % 2.0 - 12.0 03/10/2017 [facility] HEMATOLOGY Eosinophils # 0.1 K/CMM 0.0 - 0.5 03/10/2017 [facility] HEMATOLOGY Basophils # 0.1 K/CMM 0.0 - 0.2 03/10/2017 [facility] Chest 1view DX Chest 1view DX EXAM: XR CHEST 1 VIEW DATE: 03/10/2017 12:04 AM CDT INDICATION: Palpitations COMPARISON: 09/11/2016 TECHNIQUE: AP chest. Positioning is lordotic. FINDINGS: Lines/tubes/devices: None. Lungs and pleura: The lungs are normally inflated without consolidation. No pleural effusion or pneumothorax is identified. Heart and mediastinum: The heart size is normal for technique. The thoracic aorta contains calcification at the aortic knob. Otherwise, the mediastinal contour is stable. Bones and soft tissues: No acute bony abnormality is identified. IMPRESSION: 1. No acute cardiopulmonary abnormality. [place] SECTION: ER 03/10/2017 - - This report was dictated by a Direct Care Counselor/Fellow. I have personally reviewed the images as well as the Resident's interpretation and agree with the findings. Read by: Len Verdin MD Resident: Len Verdin MD Dictated Date/time: 03/10/17 00:19 Electronically Signed by: Melo Fields MD 03/10/17 01:01 FINAL REPORT [facility] CHEM PANEL Magnesium Lvl 2.5 mg/dL 1.8 - 2.4 11/05/2016 [facility] CHEM PANEL Phosphorus 3.9 mg/dL 2.5 - 4.5 11/05/2016 [facility] ELECTROLYTES AGAP 11.2 meq/L 10.0 - 20.0 11/05/2016 [facility] ELECTROLYTES eGFR 81 mL/min/1.73m2 11/05/2016 Result Comment: The eGFR is calculated using the CKD-EPI formula. In most young, healthy individuals the eGFR will be >90 mL/min/1.73m2. The eGFR declines with age. An eGFR of 60-89 may be normal in some populations, particularly the elderly, for whom the CKD-EPI formula has not been extensively validated. Use of the eGFR is not recommended in the following populations: Individuals with unstable creatinine concentrations, including patients and those with serious co-morbid conditions. Patients with extremes in muscle mass or diet. The data above are obtained from the National Kidney Disease Education Program (NKDEP) which additionally recommends that when the eGFR is used in patients with extremes of body mass index for purposes of drug dosing, the eGFR should be multiplied by the estimated BMI. [facility] ELECTROLYTES Calcium Lvl 8.3 mg/dL 8.5 - 10.5 11/05/2016 [facility] ELECTROLYTES Glucose Lvl 89 mg/dL 70 - 99 11/05/2016 [facility] ELECTROLYTES Sodium Lvl 143 meq/L 135 - 145 11/05/2016 [facility] ELECTROLYTES Creatinine Lvl 0.74 mg/dL 0.50 - 1.40 11/05/2016 [facility] ELECTROLYTES Potassium Lvl 4.2 meq/L 3.5 - 5.1 11/05/2016 [facility] ELECTROLYTES CO2 27 meq/L 24 - 32 11/05/2016 [facility] ELECTROLYTES Chloride Lvl 109 meq/L 95 - 109 11/05/2016 [facility] ELECTROLYTES BUN 23 mg/dL 7 - 22 11/05/2016 [facility] HEMATOLOGY WBC 7.5 K/CMM 3.7 - 10.4 11/05/2016 [facility] HEMATOLOGY RBC 3.23 M/CMM 4.20 - 5.40 11/05/2016 [facility] HEMATOLOGY RDW 16.6 % 11.5 - 14.5 11/05/2016 [facility] HEMATOLOGY Platelet 309 K/CMM 133 - 450 11/05/2016 [facility] HEMATOLOGY MPV 8.3 fL 7.4 - 10.4 11/05/2016 [facility] HEMATOLOGY Hgb 9.1 g/dL 12.0 - 16.0 11/05/2016 [facility] HEMATOLOGY Hct 27.6 % 36.0 - 48.0 11/05/2016 [facility] HEMATOLOGY MCV 85.7 fL 80.0 - 98.0 11/05/2016 [facility] HEMATOLOGY MCH 28.2 pg 27.0 - 31.0 11/05/2016 [facility] HEMATOLOGY MCHC 32.9 g/dL 32.0 - 36.0 11/05/2016 [facility] HEMATOLOGY Basophils # 0.1 K/CMM 0.0 - 0.2 11/05/2016 [facility] HEMATOLOGY Eosinophils # 0.2 K/CMM 0.0 - 0.5 11/05/2016 [facility] HEMATOLOGY Monocytes # 0.7 K/CMM 0.0 - 0.8 11/05/2016 [facility] HEMATOLOGY Lymphocytes # 1.5 K/CMM 1.0 - 5.5 11/05/2016 [facility] HEMATOLOGY Basophils 0.9 % 0.0 - 1.0 11/05/2016 [facility] HEMATOLOGY Eosinophils 2.1 % 0.0 - 4.0 11/05/2016 [facility] HEMATOLOGY Monocytes 9.2 % 2.0 - 12.0 11/05/2016 [facility] HEMATOLOGY Lymphocytes 20.2 % 20.0 - 40.0 11/05/2016 [facility] HEMATOLOGY Segs-Bands # 5.1 K/CMM 1.5 - 8.1 11/05/2016 [facility] HEMATOLOGY Segs 67.6 % 45.0 - 75.0 11/05/2016 [facility] HEMATOLOGY PTT 26.8 s 22.9 - 35.8 11/05/2016 [facility] HEMATOLOGY PT 13.8 s 12.0 - 14.7 11/05/2016 [facility] HEMATOLOGY INR 1.04 0.85 - 1.17 11/05/2016 [facility] PARATHYROID PROFILE Ca Norm WB 1.08 mMol/L 1.05 - 1.25 11/05/2016 [facility] PARATHYROID PROFILE Ca Ion WB 1.10 mMol/L 1.05 - 1.25 11/05/2016 [facility] PARATHYROID PROFILE Ca Ion WB 1.03 mMol/L 1.05 - 1.25 11/04/2016 [facility] PARATHYROID PROFILE Ca Norm WB 1.04 mMol/L 1.05 - 1.25 11/04/2016 [facility] CHEM PANEL Magnesium Lvl 1.9 mg/dL 1.8 - 2.4 11/04/2016 [facility] CHEM PANEL Phosphorus 4.4 mg/dL 2.5 - 4.5 11/04/2016 [facility] [facility] ELECTROLYTES AGAP 10.3 meq/L 10.0 - 20.0 11/04/2016 [facility] ELECTROLYTES eGFR 85 mL/min/1.73m2 11/04/2016 Result Comment: The eGFR is calculated using the CKD-EPI formula. In most young, healthy individuals the eGFR will be >90 mL/min/1.73m2. The eGFR declines with age. An eGFR of 60-89 may be normal in some populations, particularly the elderly, for whom the CKD-EPI formula has not been extensively validated. Use of the eGFR is not recommended in the following populations: Individuals with unstable creatinine concentrations, including patients and those with serious co-morbid conditions. Patients with extremes in muscle mass or diet. The data above are obtained from the National Kidney Disease Education Program (NKDEP) which additionally recommends that when the eGFR is used in patients with extremes of body mass index for purposes of drug dosing, the eGFR should be multiplied by the estimated BMI. [facility] ELECTROLYTES Potassium Lvl 4.3 meq/L 3.5 - 5.1 11/04/2016 [facility] ELECTROLYTES Sodium Lvl 141 meq/L 135 - 145 11/04/2016 [facility] ELECTROLYTES BUN 21 mg/dL 7 - 22 11/04/2016 [facility] ELECTROLYTES Creatinine Lvl 0.72 mg/dL 0.50 - 1.40 11/04/2016 [facility] ELECTROLYTES Glucose Lvl 100 mg/dL 70 - 99 11/04/2016 [facility] ELECTROLYTES Calcium Lvl 8.3 mg/dL 8.5 - 10.5 11/04/2016 [facility] ELECTROLYTES CO2 28 meq/L 24 - 32 11/04/2016 [facility] ELECTROLYTES Chloride Lvl 107 meq/L 95 - 109 11/04/2016 [facility] HEMATOLOGY Hgb 8.9 g/dL 12.0 - 16.0 11/04/2016 [facility] HEMATOLOGY RBC 3.22 M/CMM 4.20 - 5.40 11/04/2016 [facility] HEMATOLOGY Hct 27.7 % 36.0 - 48.0 11/04/2016 [facility] HEMATOLOGY MCV 86.1 fL 80.0 - 98.0 11/04/2016 [facility] HEMATOLOGY MPV 7.8 fL 7.4 - 10.4 11/04/2016 [facility] HEMATOLOGY Platelet 326 K/CMM 133 - 450 11/04/2016 [facility] HEMATOLOGY RDW 16.9 % 11.5 - 14.5 11/04/2016 [facility] HEMATOLOGY MCHC 32.2 g/dL 32.0 - 36.0 11/04/2016 [facility] HEMATOLOGY MCH 27.7 pg 27.0 - 31.0 11/04/2016 [facility] HEMATOLOGY WBC 8.8 K/CMM 3.7 - 10.4 11/04/2016 [facility] HEMATOLOGY INR 1.25 0.85 - 1.17 11/04/2016 [facility] HEMATOLOGY PT 16.0 s 12.0 - 14.7 11/04/2016 [facility] HEMATOLOGY PTT 165.4 s 22.9 - 35.8 11/04/2016 Result Comment: Critical Result(s) called to Matthew Thompson at 11/04/2016 15:51 by DH. Read back OK. [facility] HEMATOLOGY PTT >200 seconds 22.9 - 35.8 11/04/2016 Result Comment: Critical Result(s) called to Matthew Thompson at 11/04/2016 16:20_ by_lsa. Read back OK. [facility] HEMATOLOGY Anti-Xa Unfractionated Heparin null 11/04/2016 Result Comment: Critical Result(s) called to Matthew Thompson at 11/04/2016 16:20_ by_lsa. Read back OK. [facility] HEMATOLOGY POC Activated Clotting Time 381 s 11/04/2016 [facility] HEMATOLOGY POC Activated Clotting Time 246 s 11/04/2016 [facility] HEMATOLOGY POC Activated Clotting Time 247 s 11/04/2016 [facility] BLOOD BANK RESULTS ABO/Rh O NEG 11/04/2016 [facility] BLOOD BANK RESULTS Antibody Scrn Negative (11/04/16 7:04 AM) 11/04/2016 [facility] CHEM PANEL Albumin Lvl 3.3 g/dL 3.5 - 5.0 11/04/2016 [facility] ELECTROLYTES AGAP 14.1 meq/L 10.0 - 20.0 11/04/2016 [facility] ELECTROLYTES eGFR 77 mL/min/1.73m2 11/04/2016 Result Comment: The eGFR is calculated using the CKD-EPI formula. In most young, healthy individuals the eGFR will be >90 mL/min/1.73m2. The eGFR declines with age. An eGFR of 60-89 may be normal in some populations, particularly the elderly, for whom the CKD-EPI formula has not been extensively validated. Use of the eGFR is not recommended in the following populations: Individuals with unstable creatinine concentrations, including patients and those with serious co-morbid conditions. Patients with extremes in muscle mass or diet. The data above are obtained from the National Kidney Disease Education Program (NKDEP) which additionally recommends that when the eGFR is used in patients with extremes of body mass index for purposes of drug dosing, the eGFR should be multiplied by the estimated BMI. [facility] ELECTROLYTES Creatinine Lvl 0.77 mg/dL 0.50 - 1.40 11/04/2016 [facility] ELECTROLYTES Sodium Lvl 140 meq/L 135 - 145 11/04/2016 [facility] ELECTROLYTES BUN 23 mg/dL 7 - 22 11/04/2016 [facility] ELECTROLYTES Glucose Lvl 96 mg/dL 70 - 99 11/04/2016 [facility] ELECTROLYTES Chloride Lvl 104 meq/L 95 - 109 11/04/2016 [facility] ELECTROLYTES CO2 26 meq/L 24 - 32 11/04/2016 [facility] ELECTROLYTES Calcium Lvl 8.8 mg/dL 8.5 - 10.5 11/04/2016 [facility] ELECTROLYTES Potassium Lvl 4.1 meq/L 3.5 - 5.1 11/04/2016 [facility] HEMATOLOGY PT 13.6 s 12.0 - 14.7 11/04/2016 [facility] HEMATOLOGY INR 1.02 0.85 - 1.17 11/04/2016 [facility] HEMATOLOGY MPV 7.9 fL 7.4 - 10.4 11/04/2016 [facility] HEMATOLOGY Platelet 388 K/CMM 133 - 450 11/04/2016 [facility] HEMATOLOGY RDW 16.8 % 11.5 - 14.5 11/04/2016 [facility] HEMATOLOGY MCHC 32.3 g/dL 32.0 - 36.0 11/04/2016 [facility] HEMATOLOGY MCH 27.8 pg 27.0 - 31.0 11/04/2016 [facility] HEMATOLOGY MCV 86.0 fL 80.0 - 98.0 11/04/2016 [facility] HEMATOLOGY Hct 31.5 % 36.0 - 48.0 11/04/2016 [facility] HEMATOLOGY Hgb 10.2 g/dL 12.0 - 16.0 11/04/2016 [facility] HEMATOLOGY RBC 3.66 M/CMM 4.20 - 5.40 11/04/2016 [facility] HEMATOLOGY WBC 9.7 K/CMM 3.7 - 10.4 11/04/2016 [facility] HEMATOLOGY Eosinophils # 0.2 K/CMM 0.0 - 0.5 11/04/2016 [facility] HEMATOLOGY Monocytes # 0.9 K/CMM 0.0 - 0.8 11/04/2016 [facility] HEMATOLOGY Lymphocytes # 2.6 K/CMM 1.0 - 5.5 11/04/2016 [facility] HEMATOLOGY Basophils # 0.1 K/CMM 0.0 - 0.2 11/04/2016 [facility] HEMATOLOGY Eosinophils 2.5 % 0.0 - 4.0 11/04/2016 [facility] HEMATOLOGY Lymphocytes 26.9 % 20.0 - 40.0 11/04/2016 [facility] HEMATOLOGY Segs-Bands # 5.8 K/CMM 1.5 - 8.1 11/04/2016 [facility] HEMATOLOGY Monocytes 9.5 % 2.0 - 12.0 11/04/2016 [facility] HEMATOLOGY Basophils 1.1 % 0.0 - 1.0 11/04/2016 [facility] HEMATOLOGY Segs 60.0 % 45.0 - 75.0 11/04/2016 [facility] Carotid artery Doppler bilat US Carotid artery Doppler bilat US CLINICAL HISTORY: I25.10 Atherosclerotic heart disease of [place] coronary artery without angina pectoris,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 AGE: 71 years GENDER: Female TECHNIQUE: Duplex bilateral color carotid Doppler ultrasound was performed with spectral analysis. Right side: CCA: Moderate plaque formation is seen in the mid CCA. Peak systolic velocity is 58 cm/s. ECA: No atheromatous plaque. Peak systolic velocity is 82 cm/s. ICA: Severe plaque formation is seen in the bulb and proximal internal carotid artery. Peak systolic velocity is 377 cm/s. Vertebral artery has antegrade flow. ICA/CCA Ratio is 6.6. Left side: CCA: Complete occlusion of the left mid and distal CCA. A vascular stent is seen in the region of the carotid bifurcation. Peak systolic velocity is 47 cm/s. ECA: Peak systolic velocity is 18 cm/s. ICA: No significant flow Vertebral artery has antegrade flow. ICA/CCA Ratio is not applicable. 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 Severe, greater than 70% stenosis of the proximal right internal carotid artery. 10/23/2016 - - Read by: Grabiel Jewell MD Dictated Date/time: 10/23/16 17:31 Electronically Signed by: Grabiel Jewell MD 10/23/16 17:36 FINAL REPORT [facility] CHEM PANEL eGFR 81 mL/min/1.73m2 09/12/2016 Result Comment: The eGFR is calculated using the CKD-EPI formula. In most young, healthy individuals the eGFR will be >90 mL/min/1.73m2. The eGFR declines with age. An eGFR of 60-89 may be normal in some populations, particularly the elderly, for whom the CKD-EPI formula has not been extensively validated. Use of the eGFR is not recommended in the following populations: Individuals with unstable creatinine concentrations, including patients and those with serious co-morbid conditions. Patients with extremes in muscle mass or diet. The data above are obtained from the National Kidney Disease Education Program (NKDEP) which additionally recommends that when the eGFR is used in patients with extremes of body mass index for purposes of drug dosing, the eGFR should be multiplied by the estimated BMI. [facility] CHEM PANEL BUN 19 mg/dL 7 - 22 09/12/2016 [facility] CHEM PANEL Creatinine Lvl 0.75 mg/dL 0.50 - 1.40 09/12/2016 [facility] CHEM PANEL Sodium Lvl 135 meq/L 135 - 145 09/12/2016 [facility] CHEM PANEL Glucose Lvl 108 mg/dL 70 - 99 09/12/2016 [facility] CHEM PANEL CO2 32 meq/L 24 - 32 09/12/2016 [facility] CHEM PANEL Calcium Lvl 8.6 mg/dL 8.5 - 10.5 09/12/2016 [facility] CHEM PANEL Chloride Lvl 97 meq/L 95 - 109 09/12/2016 [facility] CHEM PANEL Potassium Lvl 3.6 meq/L 3.5 - 5.1 09/12/2016 [facility] CHEM PANEL AGAP 9.6 meq/L 10.0 - 20.0 09/12/2016 [facility] CHEM PANEL Phosphorus 3.7 mg/dL 2.5 - 4.5 09/12/2016 [facility] CHEM PANEL Magnesium Lvl 1.9 mg/dL 1.8 - 2.4 09/12/2016 [facility] HEMATOLOGY Lymphocytes # 2.3 K/CMM 1.0 - 5.5 09/12/2016 [facility] HEMATOLOGY Segs-Bands # 5.7 K/CMM 1.5 - 8.1 09/12/2016 [facility] HEMATOLOGY Basophils 0.4 % 0.0 - 1.0 09/12/2016 [facility] HEMATOLOGY Lymphocytes 25.3 % 20.0 - 40.0 09/12/2016 [facility] HEMATOLOGY Segs 63.0 % 45.0 - 75.0 09/12/2016 [facility] HEMATOLOGY Eosinophils 1.5 % 0.0 - 4.0 09/12/2016 [facility] HEMATOLOGY Monocytes 9.8 % 2.0 - 12.0 09/12/2016 [facility] HEMATOLOGY Monocytes # 0.9 K/CMM 0.0 - 0.8 09/12/2016 [facility] HEMATOLOGY Eosinophils # 0.1 K/CMM 0.0 - 0.5 09/12/2016 [facility] HEMATOLOGY Hct 26.2 % 36.0 - 48.0 09/12/2016 [facility] HEMATOLOGY MCV 86.7 fL 80.0 - 98.0 09/12/2016 [facility] HEMATOLOGY Hgb 8.8 g/dL 12.0 - 16.0 09/12/2016 [facility] HEMATOLOGY RBC 3.02 M/CMM 4.20 - 5.40 09/12/2016 [facility] HEMATOLOGY MPV 8.0 fL 7.4 - 10.4 09/12/2016 [facility] HEMATOLOGY Platelet 327 K/CMM 133 - 450 09/12/2016 [facility] HEMATOLOGY MCHC 33.7 g/dL 32.0 - 36.0 09/12/2016 [facility] HEMATOLOGY MCH 29.2 pg 27.0 - 31.0 09/12/2016 [facility] HEMATOLOGY RDW 16.3 % 11.5 - 14.5 09/12/2016 [facility] HEMATOLOGY WBC 9.1 K/CMM 3.7 - 10.4 09/12/2016 [facility] HEMATOLOGY PT 13.2 s 12.0 - 14.7 09/12/2016 [facility] HEMATOLOGY INR 0.98 0.85 - 1.17 09/12/2016 [facility] PARATHYROID PROFILE Ca Ion WB 1.10 mMol/L 1.05 - 1.25 09/12/2016 [facility] PARATHYROID PROFILE Ca Norm WB 1.10 mMol/L 1.05 - 1.25 09/12/2016 [facility] CHEM PANEL Magnesium Lvl 1.9 mg/dL 1.8 - 2.4 09/11/2016 [facility] HEMATOLOGY Monocytes # 0.9 K/CMM 0.0 - 0.8 09/11/2016 [facility] HEMATOLOGY Lymphocytes # 2.4 K/CMM 1.0 - 5.5 09/11/2016 [facility] HEMATOLOGY Segs-Bands # 4.7 K/CMM 1.5 - 8.1 09/11/2016 [facility] HEMATOLOGY Eosinophils # 0.1 K/CMM 0.0 - 0.5 09/11/2016 [facility] HEMATOLOGY Basophils 0.5 % 0.0 - 1.0 09/11/2016 [facility] HEMATOLOGY Eosinophils 1.7 % 0.0 - 4.0 09/11/2016 [facility] HEMATOLOGY Monocytes 10.6 % 2.0 - 12.0 09/11/2016 [facility] HEMATOLOGY Lymphocytes 29.2 % 20.0 - 40.0 09/11/2016 [facility] HEMATOLOGY Segs 58.0 % 45.0 - 75.0 09/11/2016 [facility] HEMATOLOGY PT 13.1 s 12.0 - 14.7 09/11/2016 [facility] HEMATOLOGY INR 0.97 0.85 - 1.17 09/11/2016 [facility] HEMATOLOGY Hgb 9.0 g/dL 12.0 - 16.0 09/11/2016 [facility] HEMATOLOGY RBC 3.11 M/CMM 4.20 - 5.40 09/11/2016 [facility] HEMATOLOGY WBC 8.2 K/CMM 3.7 - 10.4 09/11/2016 [facility] HEMATOLOGY Hct 27.3 % 36.0 - 48.0 09/11/2016 [facility] HEMATOLOGY Platelet 332 K/CMM 133 - 450 09/11/2016 [facility] HEMATOLOGY RDW 16.1 % 11.5 - 14.5 09/11/2016 [facility] HEMATOLOGY MCHC 33.1 g/dL 32.0 - 36.0 09/11/2016 [facility] HEMATOLOGY MCH 29.0 pg 27.0 - 31.0 09/11/2016 [facility] HEMATOLOGY MCV 87.8 fL 80.0 - 98.0 09/11/2016 [facility] HEMATOLOGY MPV 8.2 fL 7.4 - 10.4 09/11/2016 [facility] Chest 1view DX Chest 1view DX EXAM: XR CHEST 1 VIEW DATE: 09/11/2016 3:00 AM [employer] INDICATION: Shallow breathing. FINDINGS: Comparison is made to September 08. The cardiomediastinal silhouette is stable. The lungs are clear and well- expanded. No pleural effusions are identified. IMPRESSION: The lungs are clear. 09/11/2016 - - Read by: Vidhya Woo MD Dictated Date/time: 09/11/16 08:42 Electronically Signed by: Vidhya Woo MD 09/11/16 10:21 FINAL REPORT [facility] CHEM PANEL Phosphorus 3.2 mg/dL 2.5 - 4.5 09/10/2016 [facility] CHEM PANEL Magnesium Lvl 1.9 mg/dL 1.8 - 2.4 09/10/2016 [facility] ELECTROLYTES AGAP 11.0 meq/L 10.0 - 20.0 09/10/2016 [facility] ELECTROLYTES eGFR 100 mL/min/1.73m2 09/10/2016 Result Comment: The eGFR is calculated using the CKD-EPI formula. In most young, healthy individuals the eGFR will be >90 mL/min/1.73m2. The eGFR declines with age. An eGFR of 60-89 may be normal in some populations, particularly the elderly, for whom the CKD-EPI formula has not been extensively validated. Use of the eGFR is not recommended in the following populations: Individuals with unstable creatinine concentrations, including patients and those with serious co-morbid conditions. Patients with extremes in muscle mass or diet. The data above are obtained from the National Kidney Disease Education Program (NKDEP) which additionally recommends that when the eGFR is used in patients with extremes of body mass index for purposes of drug dosing, the eGFR should be multiplied by the estimated BMI. [facility] ELECTROLYTES Chloride Lvl 103 meq/L 95 - 109 09/10/2016 [facility] ELECTROLYTES Potassium Lvl 4.0 meq/L 3.5 - 5.1 09/10/2016 [facility] ELECTROLYTES CO2 28 meq/L 24 - 32 09/10/2016 [facility] ELECTROLYTES Calcium Lvl 8.2 mg/dL 8.5 - 10.5 09/10/2016 [facility] ELECTROLYTES Creatinine Lvl 0.47 mg/dL 0.50 - 1.40 09/10/2016 [facility] ELECTROLYTES Sodium Lvl 138 meq/L 135 - 145 09/10/2016 [facility] ELECTROLYTES BUN 17 mg/dL 7 - 22 09/10/2016 [facility] ELECTROLYTES Glucose Lvl 75 mg/dL 70 - 99 09/10/2016 [facility] HEMATOLOGY MCV 87.9 fL 80.0 - 98.0 09/10/2016 [facility] HEMATOLOGY Hgb 8.9 g/dL 12.0 - 16.0 09/10/2016 [facility] HEMATOLOGY MCH 29.4 pg 27.0 - 31.0 09/10/2016 [facility] HEMATOLOGY RBC 3.04 M/CMM 4.20 - 5.40 09/10/2016 [facility] HEMATOLOGY WBC 7.1 K/CMM 3.7 - 10.4 09/10/2016 [facility] HEMATOLOGY Hct 26.7 % 36.0 - 48.0 09/10/2016 [facility] HEMATOLOGY MPV 8.1 fL 7.4 - 10.4 09/10/2016 [facility] HEMATOLOGY MCHC 33.5 g/dL 32.0 - 36.0 09/10/2016 [facility] HEMATOLOGY RDW 16.4 % 11.5 - 14.5 09/10/2016 [facility] HEMATOLOGY Platelet 317 K/CMM 133 - 450 09/10/2016 [facility] HEMATOLOGY Lymphocytes 27.6 % 20.0 - 40.0 09/10/2016 [facility] HEMATOLOGY Eosinophils 1.3 % 0.0 - 4.0 09/10/2016 [facility] HEMATOLOGY Monocytes 7.7 % 2.0 - 12.0 09/10/2016 [facility] HEMATOLOGY Segs 62.9 % 45.0 - 75.0 09/10/2016 [facility] HEMATOLOGY Monocytes # 0.5 K/CMM 0.0 - 0.8 09/10/2016 [facility] HEMATOLOGY Lymphocytes # 2.0 K/CMM 1.0 - 5.5 09/10/2016 [facility] HEMATOLOGY Eosinophils # 0.1 K/CMM 0.0 - 0.5 09/10/2016 [facility] HEMATOLOGY Basophils 0.5 % 0.0 - 1.0 09/10/2016 [facility] HEMATOLOGY Segs-Bands # 4.5 K/CMM 1.5 - 8.1 09/10/2016 [facility] CHEM PANEL Creatinine Lvl 0.55 mg/dL 0.50 - 1.40 09/10/2016 [facility] CHEM PANEL eGFR 95 mL/min/1.73m2 09/10/2016 Result Comment: The eGFR is calculated using the CKD-EPI formula. In most young, healthy individuals the eGFR will be >90 mL/min/1.73m2. The eGFR declines with age. An eGFR of 60-89 may be normal in some populations, particularly the elderly, for whom the CKD-EPI formula has not been extensively validated. Use of the eGFR is not recommended in the following populations: Individuals with unstable creatinine concentrations, including patients and those with serious co-morbid conditions. Patients with extremes in muscle mass or diet. The data above are obtained from the National Kidney Disease Education Program (NKDEP) which additionally recommends that when the eGFR is used in patients with extremes of body mass index for purposes of drug dosing, the eGFR should be multiplied by the estimated BMI. [facility] HEMATOLOGY POC Activated Clotting Time 191 s 09/09/2016 [facility] HEMATOLOGY POC Activated Clotting Time 292 s 09/09/2016 [facility] HEMATOLOGY POC Activated Clotting Time 248 s 09/09/2016 [facility] CHEM PANEL Phosphorus 2.4 mg/dL 2.5 - 4.5 09/09/2016 [facility] ELECTROLYTES Potassium Lvl 3.9 meq/L 3.5 - 5.1 09/09/2016 [facility] ELECTROLYTES Glucose Lvl 107 mg/dL 70 - 99 09/09/2016 [facility] ELECTROLYTES Sodium Lvl 140 meq/L 135 - 145 09/09/2016 [facility] ELECTROLYTES BUN 18 mg/dL 7 - 22 09/09/2016 [facility] ELECTROLYTES Chloride Lvl 100 meq/L 95 - 109 09/09/2016 [facility] ELECTROLYTES Calcium Lvl 8.5 mg/dL 8.5 - 10.5 09/09/2016 [facility] ELECTROLYTES CO2 34 meq/L 24 - 32 09/09/2016 [facility] ELECTROLYTES AGAP 9.9 meq/L 10.0 - 20.0 09/09/2016 [facility] HEMATOLOGY INR 1.02 0.85 - 1.17 09/09/2016 [facility] HEMATOLOGY PTT 34.2 s 22.9 - 35.8 09/09/2016 [facility] HEMATOLOGY PT 13.6 s 12.0 - 14.7 09/09/2016 [facility] PARATHYROID PROFILE Ca Ion WB 0.99 mMol/L 1.05 - 1.25 09/09/2016 [facility] PARATHYROID PROFILE Ca Norm WB 0.98 mMol/L 1.05 - 1.25 09/09/2016 [facility] CARDIAC ENZYMES Troponin-T 0.013 ng/mL 0.000 - 0.100 09/08/2016 [facility] CARDIAC ENZYMES Total CK 59 unit/L 12 - 191 09/08/2016 [facility] CARDIAC ENZYMES Troponin-I 0.06 ng/mL 0.00 - 0.40 09/08/2016 [facility] CARDIAC ENZYMES Total CK 60 unit/L 12 - 191 09/08/2016 [facility] CARDIAC ENZYMES Troponin-T 0.011 ng/mL 0.000 - 0.100 09/08/2016 [facility] CARDIAC ENZYMES Troponin-I 0.06 ng/mL 0.00 - 0.40 09/08/2016 [facility] CHEM PANEL Globulin 3.4 g/dL 2.7 - 4.2 09/08/2016 [facility] CHEM PANEL B/C Ratio 21 6 - 25 09/08/2016 [facility] CHEM PANEL A/G Ratio 0.9 0.7 - 1.6 09/08/2016 [facility] CHEM PANEL Bili Total 0.3 mg/dL 0.2 - 1.3 09/08/2016 [facility] CHEM PANEL AST 59 unit/L 0 - 37 09/08/2016 [facility] CHEM PANEL Total Protein 6.3 g/dL 6.4 - 8.4 09/08/2016 [facility] CHEM PANEL Alk Phos 76 unit/L 39 - 136 09/08/2016 [facility] CHEM PANEL ALT 44 unit/L 0 - 65 09/08/2016 [facility] CHEM PANEL Albumin Lvl 2.9 g/dL 3.5 - 5.0 09/08/2016 [facility] DRUG SCREEN U Opiate Scr Positive *ABN* (09/08/16 7:46 AM) Negative 09/08/2016 [facility] DRUG SCREEN U Phencyc Scr Negative *NA* (09/08/16 7:46 AM) Negative 09/08/2016 [facility] DRUG SCREEN U Cannab Scr Negative *NA* (09/08/16 7:46 AM) Negative 09/08/2016 [facility] DRUG SCREEN U Benzodia Scr Negative *NA* (09/08/16 7:46 AM) Negative 09/08/2016 [facility] DRUG SCREEN U Cocaine Scr Negative *NA* (09/08/16 7:46 AM) Negative 09/08/2016 [facility] DRUG SCREEN U Berenice Scr Negative *NA* (09/08/16 7:46 AM) Negative 09/08/2016 [facility] DRUG SCREEN UDS Note See Note (09/08/16 7:46 AM) 09/08/2016 [facility] DRUG SCREEN U Amph Scr Negative *NA* (09/08/16 7:46 AM) Negative 09/08/2016 [facility] HEMATOLOGY Basophils # 0.1 K/CMM 0.0 - 0.2 09/08/2016 [facility] HEMATOLOGY PTT 43.6 s 22.9 - 35.8 09/08/2016 [facility] LIPIDS VLDL 37 09/08/2016 [facility] LIPIDS LDL (Calculated) 74 mg/dL <=99 mg/dL 09/08/2016 [facility] LIPIDS CHD Risk 3.18 3.90 - 5.80 09/08/2016 [facility] LIPIDS Chol 162 mg/dL <=199 mg/dL 09/08/2016 [facility] LIPIDS Trig 183 mg/dL <=149 mg/dL 09/08/2016 [facility] LIPIDS HDL 51 mg/dL >=61 mg/dL 09/08/2016 [facility] SPECIAL CHEMISTRY Hgb A1C 6.9 % <=5.6 % 09/08/2016 [facility] URINE AND STOOL UA Bili Negative *NA* (09/08/16 7:46 AM) Negative 09/08/2016 [facility] URINE AND STOOL UA Turbidity Clear (09/08/16 7:46 AM) Clear 09/08/2016 [facility] URINE AND STOOL UA Color Light Yellow *NA* (09/08/16 7:46 AM) Yellow 09/08/2016 [facility] URINE AND STOOL UA Ketones Negative mg/dL Negative mg/dL 09/08/2016 [facility] URINE AND STOOL UA Glucose Negative mg/dL Negative mg/dL 09/08/2016 [facility] URINE AND STOOL UA Urobilinogen <=1.0 mg/dL 0.1 - 1.0 09/08/2016 [facility] URINE AND STOOL UA Protein Negative mg/dL Negative mg/dL 09/08/2016 [facility] URINE AND STOOL UA pH 5.0 5.0 - 8.0 09/08/2016 [facility] URINE AND STOOL UA Spec Grav 1.008 <=1.030 09/08/2016 [facility] URINE AND STOOL UA Leuk Est Negative (09/08/16 7:46 AM) Negative 09/08/2016 [facility] URINE AND STOOL UA Nitrite Negative (09/08/16 7:46 AM) Negative 09/08/2016 [facility] URINE AND STOOL UA Blood Trace *ABN* (09/08/16 7:46 AM) Negative 09/08/2016 [facility] URINE AND STOOL UA Sq Epi Occasional /LPF Few /LPF 09/08/2016 [facility] URINE AND STOOL UA Mucus Few /LPF None Seen /LPF 09/08/2016 [facility] URINE AND STOOL UA RBC 2 /HPF 0 - 2 09/08/2016 [facility] URINE AND STOOL UA WBC null 0 - 5 09/08/2016 [facility] Chest 1view DX Chest 1view DX EXAM: XR CHEST 1 VIEW DATE: 09/08/2016 7:24 AM 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 Aortic atherosclerotic changes are present. No pneumothorax is identified. Minimal opacities in the lung bases are noted. IMPRESSION: Minimal basilar opacities suggesting atelectasis. Pneumonia not excluded. 09/08/2016 - - This report was dictated by a Direct Care Counselor/Fellow. I have personally reviewed the images as well as the Resident's interpretation and agree with the findings. Read by: Zak Thomson (Fellow) Resident: Zak Thomson (Fellow) Dictated Date/time: 09/08/16 09:02 Electronically Signed by: Vidhya Woo MD 09/08/16 09:55 FINAL REPORT [facility] Vital Signs Vital Sign Value Date Comments Source BMI Calculated 28.9 07/28/2017 [facility] Weight 76.364 07/28/2017 [facility] Height 162.56 cm 07/28/2017 [facility] Heart Rate 72 07/28/2017 [facility] Respitory Rate 18 07/28/2017 [facility] Systolic (mm Hg) 152 07/28/2017 [facility] Diastolic (mm Hg) 66 07/28/2017 [facility] Respitory Rate 22 07/09/2017 [facility] Systolic (mm Hg) 169 07/09/2017 [facility] Diastolic (mm Hg) 70 07/09/2017 [facility] Respitory Rate 20 07/09/2017 [facility] Systolic (mm Hg) 119 07/09/2017 [facility] Diastolic (mm Hg) 56 07/09/2017 [facility] Temperature Oral (F) 97.9 F 07/09/2017 [facility] Systolic (mm Hg) 154 07/09/2017 [facility] Diastolic (mm Hg) 67 07/09/2017 [facility] Respitory Rate 24 07/09/2017 [facility] Temperature Oral (F) 98.9 F 07/09/2017 [facility] Temperature Oral (F) 96.8 F 07/08/2017 [facility] Height 162.56 cm 07/07/2017 [facility] Weight 74.364 07/07/2017 [facility] BMI Calculated 28.14 07/07/2017 [facility] Heart Rate 88 07/07/2017 [facility] Heart Rate 89 07/07/2017 [facility] Heart Rate 88 07/07/2017 [facility] BMI Calculated 26.32 07/07/2017 [facility] Weight 69.545 07/07/2017 [facility] Height 162.56 cm 07/07/2017 [facility] Respitory Rate 20 03/11/2017 [facility] Systolic (mm Hg) 126 03/10/2017 [facility] Diastolic (mm Hg) 73 03/10/2017 [facility] Temperature Oral (F) 97.8 F 03/10/2017 [facility] Respitory Rate 20 03/10/2017 [facility] Heart Rate 70 03/10/2017 [facility] Systolic (mm Hg) 153 03/10/2017 [facility] Diastolic (mm Hg) 71 03/10/2017 [facility] Respitory Rate 20 03/10/2017 [facility] Temperature Oral (F) 98.3 F 03/10/2017 [facility] Heart Rate 90 03/10/2017 [facility] BMI Calculated 29.26 03/10/2017 [facility] Height 162.56 cm 03/10/2017 [facility] Weight 77.318 03/10/2017 [facility] Heart Rate 105 03/10/2017 [facility] Temperature Oral (F) 98.4 F 03/10/2017 [facility] Systolic (mm Hg) 173 03/10/2017 [facility] Diastolic (mm Hg) 79 03/10/2017 [facility] BMI Calculated 26.49 03/10/2017 [facility] Weight 70 03/10/2017 [facility] Height 162.56 cm 03/10/2017 [facility] Respitory Rate 50 11/05/2016 [facility] Respitory Rate 21 11/05/2016 [facility] Respitory Rate 20 11/05/2016 [facility] Systolic (mm Hg) 139 11/05/2016 [facility] Diastolic (mm Hg) 63 11/05/2016 [facility] Systolic (mm Hg) 139 11/05/2016 [facility] Diastolic (mm Hg) 63 11/05/2016 [facility] Systolic (mm Hg) 133 11/05/2016 [facility] Diastolic (mm Hg) 60 11/05/2016 [facility] Temperature Oral (F) 97.9 F 11/05/2016 [facility] BMI Calculated 26.15 11/04/2016 [facility] Weight 69.091 11/04/2016 [facility] Height 162.56 cm 11/04/2016 [facility] Temperature Oral (F) 97.8 F 11/04/2016 [facility] Respitory Rate 15 09/12/2016 [facility] Systolic (mm Hg) 104 09/12/2016 [facility] Diastolic (mm Hg) 55 09/12/2016 [facility] Respitory Rate 20 09/12/2016 [facility] Respitory Rate 25 09/12/2016 [facility] Systolic (mm Hg) 104 09/12/2016 [facility] Diastolic (mm Hg) 55 09/12/2016 [facility] Temperature Oral (F) 96.9 F 09/12/2016 [facility] Systolic (mm Hg) 118 09/12/2016 [facility] Diastolic (mm Hg) 45 09/12/2016 [facility] Temperature Oral (F) 97.4 F 09/12/2016 [facility] Temperature Oral (F) 98.2 F 09/12/2016 [facility] Heart Rate 62 09/11/2016 [facility] BMI Calculated 23.94 09/08/2016 [facility] Height 162.56 cm 09/08/2016 [facility] Weight 63.273 09/08/2016 [facility] Encounters Location Location Details Encounter Type Encounter Number Reason For Visit Attending Provider ADM Date DC Date Status Source [facility] Inpatient [id number] Anibal Ghosh 09/08/2016 09/12/2016 [facility] Bedded Outpatient [id number] Anibal Ghosh 09/09/2016 09/08/2016 [facility] - [place] [facility] Out[facility] Di[facility] Services [id number] Chad Rousseau 10/23/2016 10/24/2016 [facility] Inpatient [id number] Anibal Ghosh 11/05/2016 11/05/2016 [facility] Observation [id number] Angel Sherman 03/10/2017 03/11/2017 [facility] Inpatient [id number] Adama Crespo 07/07/2017 07/09/2017 [facility] EDDC Outpatient [id number] Hernando Flowers 07/28/2017 07/29/2017 [facility] Procedures Procedure Code Date Perfomer Comments Source Foot repair 294176277 [facility] [place] Gallbladder operation [id number] [facility] Hysterectomy [id number] [facility] [place] [facility] Foot repair [id number] [facility] Gallbladder operation [id number] [facility] Hysterectomy [id number] [facility] Stent replacement [id number] [facility]
--- OUTSIDE RECORDS SUMMARY | 2018-10-06 15:06 | XMS REPORT | Summary of Care ---
Author Author Yoon De Jesus R.N. Organization Unknown Address Unknown Phone Unavailable Care Team Providers Care Topographical Field Assistant Name Role Phone PETTY Ernst, GRUPO Unavailable Unavailable KATHRYN ROCHA M.D. Unavailable Unavailable Yoon De Jesus R.N. 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) Status: Active Special DrShanice Services Analysis Of Computerized Data Status: Active Duration Of Encounter - Review Of Prior Records (___ min) Status: Active Carotid stenosis (433.10, I65.29) Status: Active Hypertension (401.9, I10) Status: Active At risk for bleeding associated with anticoagulants (V15.89, Z91.89) Status: Active 2-vessel coronary artery disease (414.00, I25.10) Status: Active Atrial fibrillation, unspecified type (427.31, I48.91) Status: Active Ischemic stroke (434.91, I63.9) Status: Active Medications Name Dates Details HydroCHLOROthiazide 25 MG Oral Tablet TAKE ONE TABLET BY MOUTH DAILY Quantity: 90 KATHRYN ROCHA M.D. * Start : 25-Aug-2018 Active Simvastatin 40 MG Oral Tablet TAKE 1 TABLET AT BEDTIME. * Refills: 0 * Start : 03-Sep-2016 Active Potassium Chloride Michelle ER 20 MEQ Oral Tablet Extended Release TAKE 1 TABLET DAILY. * Refills: 0 * Start : 03-Sep-2016 Active Niacin 500 MG Oral Tablet TAKE 1 TABLET DAILY DIRECTED. * Refills: 0 * Start : 03-Sep-2016 Active Spiriva HandiHaler 18 MCG Inhalation Capsule INHALE CONTENTS OF 1 CAPSULE ONCE DAILY. * Refills: 0 * Start : 03-Sep-2016 Active Advair Diskus 250-50 MCG/DOSE Inhalation Aerosol Powder Breath Activated INHALE 1 PUFFS DAILY * Refills: 0 * Start : 17-Oct-2016 Active 14 Inhaler Pack Valsartan 160 MG Oral Tablet TAKE 1 TABLET TWICE DAILY. * Refills: 0 GRUPO DOVE M.D. * Start : 17-Oct-2016 Active Clopidogrel Bisulfate 75 MG Oral Tablet Take 2 tablets by mouth for the first day and then 1 tablet by mouth daily there after. * Quantity: 32 Refills: 6 GRUPO DOVE M.D. * Start : 22-Oct-2016 Active Toprol XL 25 MG Oral Tablet Extended Release 24 Hour TAKE ONE TABLET BY MOUTH TWICE A DAY * Refills: 0 Active Albuterol AERS INHALE PUFFS 3 times daily PRN * Refills: 0 Active Biotin CAPS TAKE 1 CAPSULE DAILY * Refills: 0 Active Vitamin C CAPS TAKE 1 CAPSULE DAILY * Refills: 0 Active AmLODIPine Besylate 10 MG Oral Tablet TAKE ONE TABLET BY MOUTH DAILY * Quantity: 90 Refills: 1 KATHRYN ROCHA M.D. * Start : 22-Jun-2018 Active Tylenol CAPS TAKE 1 CAPSULE DAILY * Refills: 0 Active Fiber TABS TAKE 5 TABLET DAILY * Refills: 0 Active Xarelto 20 MG Oral Tablet TAKE ONE TABLET BY MOUTH DAILY WITH EVENING MEAL * Quantity: 90 Refills: 1 KATHRYN ROCHA M.D. * Start : 03-Sep-2018 Active Allergies and Adverse Reactions Name Dates Details No Known Drug Allergies (Allergy) Status: Active Past Medical History Name Dates Details History of chronic obstructive lung disease (V12.69, Z87.09) Status: Resolved History of congestive heart failure (V12.59, Z86.79) Status: Resolved History of myocardial infarction (412, I25.2) Status: Resolved Procedures Procedure Dates Details History of Hysterectomy Completed History of Previous Stent Placement Completed History of Cholecystectomy Completed Immunization Name Dates Details Immunizations not documented Family History Name Dates Details Family history of hypertension (V17.49, Z82.49) Comments: Family History Status: Active Family history of CAD (coronary artery disease) (414.00, I25.10) Comments: Family History Status: Active Family history of cerebrovascular accident (CVA) (V17.1, Z82.3) Comments: Family History Status: Active Family history of Weakness (780.79, R53.1) Comments: Family History Status: Active Name Dates Details Family history of leukemia (V16.6, Z80.6) Status: Active Name Dates Details Family history of lung cancer (V16.1, Z80.1) Status: Active Name Dates Details Family history of asthma (V17.5, Z82.5) Status: Active Name Dates Details Family history of COPD (chronic obstructive pulmonary disease) (V17.6, Z82.5) Status: Active Family history of malignant neoplasm of prostate (V16.42, Z80.42) Status: Active Social History Name Dates Details - Status: Name Dates Details Former smoker Vital Signs Date Test Result Details No Known Vitals to report Results Date Description Value Details Results not documented Plan of Care Name Dates Details Planned Observations Planned Goals not documented Interventions Provided Discussion/Summary* Guideline Used: * Other: Medication refill * [facility] * Patient requesting refill for Xarelto. * Patient informed that Xarelto renewed on 09/03/18 to [facility]. * Patient will call [facility] and call back if any issues. Instructions Name Dates Details Instructions not documented Encounters Appointment; CARLOS GONZALEZ M.D. Encounter Diagnosis: Problem not documented On: 03-Oct-2016 8:00 Appointment; CARLOS GONZALEZ M.D. Encounter Diagnosis: Problem not documented On: 17-Oct-2016 8:00 Appointment; GRUPO DOVE M.D. Encounter Diagnosis: Problem not documented On: 22-Oct-2016 14:20 Appointment; GRUPO DOVE M.D. Encounter Diagnosis: Problem not documented On: 19-Nov-2016 14:40 Appointment; KATHRYN ROCHA M.D. Encounter Diagnosis: Problem not documented On: 17-Mar-2017 13:40 Appointment; KATHRYN ROCHA M.D. Encounter Diagnosis: Problem not documented On: 27-Mar-2017 12:40 Appointment; CINDY TAN Encounter Diagnosis: Problem not documented On: 28-Jul-2017 15:30 Appointment; KATHRYN ROCHA M.D. Encounter Diagnosis: Problem not documented On: 29-Sep-2017 13:00 Appointment; KATHRYN ROCHA M.D. Encounter Diagnosis: Problem not documented On: 18-Nov-2017 15:40 Appointment; ROB ELLISON M.D. Encounter Diagnosis: Problem not documented On: 21-Dec-2017 11:20
[2018-10-06] MEDS ORDERED: SODIUM CHLORIDE 0.9% 1000ML 1,000 ML ONE (16:28)
[2018-10-06 16:52] LABS: BASOPHILS % 0.2 % (0.0-1.0); HEMATOCRIT 35.3 % (34.2-44.1); HEMOGLOBIN 10.8 g/dL (12.0-16.0); LYMPHOCYTES # (AUTO) 0.8 (1.0-3.2); LYMPHOCYTES % 14.8 % (18.0-39.1); MEAN CORPUSCULAR HEMOGLOBIN 27.2 pg (28-32); MEAN CORPUSCULAR HGB CONC 30.6 g/dL (31-35); MEAN CORPUSCULAR VOLUME 88.9 fL (81-99); MONOCYTES # (AUTO) 0.8 (0.2-0.8); MONOCYTES % 15.2 % (4.4-11.3); NEUTROPHILS # (AUTO) 3.7 (2.1-6.9); NEUTROPHILS % 69.2 % (38.7-80.0); PLATELET COUNT 330 x10e3/uL (140-360); RED BLOOD COUNT 3.97 x10e6/uL (3.6-5.1); RED CELL DISTRIBUTION WIDTH 14.7 % (11.7-14.4)
[2018-10-06 17:14] LABS: ALBUMIN 2.9 g/dL (3.5-5.0); ALBUMIN/GLOBULIN RATIO 0.9 (0.8-2.0); ANION GAP 14.6 mmol/L (8-16); CALCIUM 9.4 mg/dL (8.4-10.2); CREATININE, SERUM 0.96 mg/dL (0.57-1.11); POTASSIUM 3.6 mmol/L (3.5-5.1)
[2018-10-06 17:20] LABS: CREATINE KINASE MB 1.2 ng/mL (0-5.0)
--- NOTE | 2018-10-06 17:33 | Diagnostic Imaging Report ---
EXAMINATION: CHEST SINGLE (PORTABLE) INDICATION: ^sob ^[id number] ^[id number] COMPARISON: Chest radiograph 10/10/2017 FINDINGS: AP view TUBES and LINES: None. LUNGS: Lungs are well inflated. Bibasilar atelectasis, unchanged. There is perihilar interstital opacities, consistent with interstitial edema. PLEURA: No pleural effusion or pneumothorax. HEART AND MEDIASTINUM: Stable mild enlargement of the cardiac silhouette. Moderate atherosclerotic calcifications of the aortic arch. BONES AND SOFT TISSUES: No acute osseous lesion. Soft tissues are unremarkable. UPPER ABDOMEN: No free air under the diaphragm. IMPRESSION: Bilateral interstitial edema. Signed by: Dr. Amparo Camejo M.D. on 10/06/2018 5:30 PM
[2018-10-06] MEDS ORDERED: ASPIRIN 81 MG CHEW TAB PO ONE (18:15)
[2018-10-06] MEDS ORDERED: CEFTRIAXONE SOD 1 GM VIAL IV SCH (18:15)
[2018-10-06] MEDS ORDERED: METHYLPREDNISOLONE SOD SUCC 125 MG/2ML VIAL IV ONE (18:15)
[2018-10-06] MEDS: CEFTRIAXONE SOD 1 GM/NS 50 ML 50 ML IV SCH (18:27)
[2018-10-06] MEDS: AZITHROMYCIN 500MG/NS 250 ML 250 ML IV SCH ×2 (18:52→20:08)
--- NOTE | 2018-10-06 19:20 | NUR ---
1ST ATTEMPT FOR REPORT
--- NOTE | 2018-10-06 19:42 | NUR ---
2ND ATTEMPT FOR REPORT
--- NOTE | 2018-10-06 21:20 | NUR ---
Pt received from ER. Pt A&O and in no apparent distress. Pt daughter to stay overnight. All safety measures ensured, bed alarm on, and pt call castillo near.
[2018-10-06 21:39] VITALS: BP 131/58
[2018-10-06 21:51] VITALS: BP 131/58
[2018-10-06 22:39] VITALS: BP 131/58
--- NOTE | 2018-10-06 23:27 | NUR ---
pt back on unit from radiology Addendum: 10/06/18 at 2328 by Darlyn Dorsey RN wrong pt; made in error
[2018-10-07] VITALS (8 sets, daily range): BP systolic 103–128; BP diastolic 44–62
--- NOTE | 2018-10-07 00:35 | NUR ---
Walking rounds complete. Pt sleeping in bed and in no apparent distress. Pt daughter sleep on couch at bedside. Bed alarm not working so pt notified earlier to call for assistance and daughter to help as well.
--- NOTE | 2018-10-07 02:01 | History and Physical ---
CHIEF COMPLAINT: A 73-year-old female comes in with shortness of breath. HISTORY OF PRESENTING ILLNESS: Ms. Komal Bassett is a 73-year-old female, who comes in with shortness of breath. The patient was seen by our nurse practitioner 5 days prior to admission. The patient was given steroids and was started on antibiotic. The patient continued to feel weak and low BP was noted. The patient also had dizziness and nausea. She came in and was admitted for COPD exacerbation and also for dehydration. PAST MEDICAL HISTORY: History of hypertension, history of coronary artery disease, history of COPD, history of hyperlipidemia. Also, the patient has chronic UTIs, atrial fibrillation, and history of CVA in the past. MEDICATIONS: Medicines she takes at home are potassium chloride 20 mEq, amlodipine 5 mg. The patient is taking Xarelto 20 mg daily, hydrochlorothiazide 25 mg, Klor-Con 20 mEq, niacin 500 mg, prednisone 10 mg daily, and Levaquin, which is recently started. The patient also takes Spiriva 18 mcg daily, losartan 50 daily, simvastatin 40 daily, metoprolol 25 mg daily, and Plavix 75 mg daily too. ProAir as needed and also albuterol and Atrovent treatments. PAST SURGICAL HISTORY: History of stents in the past. SOCIAL HISTORY: Positive for smoking and stopped 3 years ago. She is a former smoker. No EtOH. No IV drug abuse. REVIEW OF SYSTEMS: Positive for shortness of breath. Positive for nausea. Positive for feeling fatigue. No vomiting. No diarrhea. No constipation. No rectal bleeding. No hematochezia. No hematemesis. No diplopia. No blurry vision. PHYSICAL EXAMINATION: GENERAL: The patient is alert and oriented x3. VITAL SIGNS: Stable. The patient is in AFib at this time. CVS: S1 and S2, irregularly irregular. ABDOMEN: Nontender, nondistended. EXTREMITIES: No clubbing, no cyanosis, and no edema. LABORATORY VALUES: At this time is unavailable. The patient's EKG shows sinus rhythm with premature ventricular complexes, although the patient runs in and out of atrial fibrillation. ASSESSMENT: 1. Chronic obstructive pulmonary disease exacerbation. The patient will be on steroids. The patient will be on IV antibiotics, IV fluid has been given. The patient's blood pressure has normalized. Plan is to continue with her home medications. 2. Atrial fibrillation. We will continue with Xarelto. 3. Hypertension. We will continue with metoprolol and amlodipine. We will keep the patient in-house for 1 to 2 days. Further recommendation per clinical course and possible discharge on steroids and antibiotics. MD RAMA Batista/MERCEDESL /[id number]
[2018-10-07 03:14] LABS: CREATINE KINASE MB 0.9 ng/mL (0-5.0)
[2018-10-07 05:29] LABS: BASOPHILS % 0.3 % (0.0-1.0); HEMATOCRIT 33.7 % (34.2-44.1); HEMOGLOBIN 10.5 g/dL (12.0-16.0); LYMPHOCYTES # (AUTO) 0.6 (1.0-3.2); MEAN CORPUSCULAR HEMOGLOBIN 27.3 pg (28-32); MEAN CORPUSCULAR HGB CONC 31.2 g/dL (31-35); MEAN CORPUSCULAR VOLUME 87.8 fL (81-99); MONOCYTES # (AUTO) 0.1 (0.2-0.8); MONOCYTES % 4.8 % (4.4-11.3); NEUTROPHILS # (AUTO) 2.2 (2.1-6.9); NEUTROPHILS % 75.2 % (38.7-80.0); PLATELET COUNT 321 x10e3/uL (140-360); RED BLOOD COUNT 3.84 x10e6/uL (3.6-5.1); RED CELL DISTRIBUTION WIDTH 14.6 % (11.7-14.4)
[2018-10-07 05:57] LABS: CREATINE KINASE MB 1.4 ng/mL (0-5.0)
[2018-10-07 06:25] LABS: ANION GAP 14.4 mmol/L (8-16); BLOOD UREA NITROGEN 41 mg/dL (7-26); BUN/CREATININE RATIO 53 (6-25); CALCIUM 8.7 mg/dL (8.4-10.2); CARBON DIOXIDE 24 mmol/L (22-29); CHLORIDE 103 mmol/L (98-107); CREATININE, SERUM 0.78 mg/dL (0.57-1.11); EST GLOMERULAR FILTRATION RATE > 60 ML/MIN (60-); GLUCOSE 115 mg/dL (74-118); POTASSIUM 3.4 mmol/L (3.5-5.1); SODIUM 138 mmol/L (136-145)
[2018-10-07] MEDS ORDERED: TRAMADOL HCL 50 MG TAB PO PRN (06:30)
--- NOTE | 2018-10-07 07:08 | NUR ---
Report received and Walking rounds complete. Pt resting in bed and in no apparent distress.
--- NOTE | 2018-10-07 07:25 | NUR ---
Report received. Patient is resting in bed in NAD. Denies any SOB at this time. She did request Neb treatments and Dr. Rojas will be called. POC discussed with patient. She was instructed to call for assistance as needed and verbalized understanding. Bed in lowest position, locked, and call castillo within reach.
[2018-10-07] MEDS: SALMETEROL/FLUTICASONE 250/50 INH SCH (08:10)
[2018-10-07] MEDS: LEVALBUTEROL HCL SOLN NEBU 0.63 MG/3 ML NEB INH SCH ×3 (08:10→20:45)
[2018-10-07] MEDS: VALSARTAN 80 MG TAB PO SCH (08:39)
[2018-10-07] MEDS: ASPIRIN 81 MG CHEW TAB PO SCH (08:46)
[2018-10-07] MEDS: HYDROCHLOROTHIAZIDE 25 MG TAB PO SCH (08:46)
[2018-10-07] MEDS: POTASSIUM CHLORIDE 20 MEQ TAB CR PO SCH (08:46)
[2018-10-07] MEDS: METHYLPREDNISOLONE SOD SUCC 40 MG/ML VIAL 1ML IV SCH ×2 (08:46→20:10)
[2018-10-07] MEDS: NIACIN 500 MG TABSR PO SCH (08:47)
[2018-10-07] MEDS: METOPROLOL TARTRATE 25 MG TAB PO SCH ×2 (09:00→17:00)
--- NOTE | 2018-10-07 10:07 | Progress Note ---
DATE: SUBJECTIVE: The patient came here with acute weakness. The patient was dehydrated, fluids were resuscitated and the patient's electrolyte , feels better but continues to have congestion and coughing and the patient is on her medications at this time. OBJECTIVE: VITAL SIGNS: Temperature 96.6, respiration of 22, blood pressure is 128/62, pulse oximetry 91% on 3 L nasal cannula. HEENT: Normocephalic, atraumatic. Pupils are reactive to light and accommodation. LUNGS: Decreased air entry in the lung bases. Positive for inspiratory wheezes bilaterally. CVS: S1, S2. Irregular. ABDOMEN: Nontender and nondistended. EXTREMITIES: No clubbing, no cyanosis, no edema. LABORATORY VALUES: The patient's white count is 2.94, hemoglobin 10.5, hematocrit 33.7, and platelet count is 321, no left shift present. Chemistries show sodium 138, potassium 3.4, BUN of 41, creatinine 0.78. Lactic acid has normalized at 7.1. Microbiology; blood cultures are pending. MEDICATIONS: The patient is on azithromycin, ceftriaxone, warfarin, valsartan, tramadol, Spiriva, simvastatin, metoprolol, hydrochlorothiazide, fluticasone and aspirin. ASSESSMENT AND PLAN: 1. Plan is to add Solu-Medrol 40 mg twice a day right now and change her warfarin to Xarelto. 2. Hypertension. Continue with antihypertensive medications. 3. Chronic obstructive pulmonary disease. Continue with albuterol and Atrovent treatments. 4. Atrial fibrillation. Continue with Xarelto. Further recommendations per clinical course. DISPOSITION: The patient can be discharged possibly in 1-2 days, possible discharge tomorrow. This has been conveyed to the patient. MD RAMA Batista/MODL /[id number]
--- NOTE | 2018-10-07 15:00 | NUR ---
Patient visiting with family no complaints voiced. Call castillo within reach.
--- NOTE | 2018-10-07 15:36 | NUR ---
Nutrition Screen Note RD Recommendation for Physician: -Continue cardiac diet as ordered Plan of Care: RD following, monitoring for tolerance and adequacy Nutrition reason for involvement: Nutrition Risk Trigger MST Primary Diagnose(s): COPD exacerbation PMH: HTN, CAD, COPD, HLD, Afib, CVA Ht: 64in Wt: 147lb BMI: 25.2kg/m2 IBW: 120lb RD Assessment: (10/07) Chart reviewed. Labs and meds reviewed. 73-year-old female, who came in with shortness of breath and weakness. Visited pt in the room. Pt was sleeping; son presented on bedside to provide hx. Per son, pt has had decreased appetite for the last couple days. No weight loss reported. Pt ate ~75% of her lunch today. No complains of nausea or vomiting. LBM 10/06. No chewing or swallowing difficulty noted. No sign of fat or muscle loss per observation. Will continue to monitor and follow. Please consult as needed. Current Diet: cardiac diet Malnutrition Evaluation (10/07) The patient does not meet criteria for a specified degree of malnutrition at this time. Will re-evaluate at follow-up as appropriate. Energy intake: <50% of estimated energy requirements for >5 days Weight loss: None Fat loss: N/A Muscle loss: N/A Supporting Evidence: Fluid accumulation: N/A Functional Status: no changes Diet Education Needs Assessment: Diet education not indicated. Nutrition Care Level: low Signed: Ivone Sol MS, RD, LD
--- NOTE | 2018-10-07 15:50 | NUR ---
SOCIAL WORK INITIAL ASSESSMENT Shrub Grower to bedside to discuss plan of care with patient/family. CM/SW role and care transitions discussed. Anticipated discharge plan discussed along with duration of care. CM/SW discussed patients right to make decisions in care. CM/SW work hours given. 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 Name and number was also written on the patients whiteboard. Patient verbalized understanding of discussion. CM will follow-up with ongoing discharge and transition of care needs.
[2018-10-07] MEDS ORDERED: PLAVIX75 MG PO (16:46)
[2018-10-07] MEDS ORDERED: WARFARIN SOD 3 MG TAB PO SCH (17:00)
[2018-10-07] MEDS ORDERED: CLOPIDOGREL BISULFATE 75 MG TAB PO SCH (17:00)
[2018-10-07] MEDS: CEFTRIAXONE SOD 1 GM/NS 50 ML 50 ML IV SCH (17:28)
[2018-10-07] MEDS: RIVAROXABAN 20 MG TABLET PO SCH (17:28)
[2018-10-07] MEDS: CLOPIDOGREL BISULFATE 75 MG TAB PO SCH (17:28)
[2018-10-07] MEDS: AZITHROMYCIN 500MG/NS 250 ML 250 ML IV SCH (18:01)
--- NOTE | 2018-10-07 19:00 | NUR ---
Report given to oncoming shift.
[2018-10-07] MEDS ORDERED: SIMVASTATIN 40 MG TAB PO SCH (21:00)
[2018-10-08] VITALS (7 sets, daily range): BP systolic 104–148; BP diastolic 51–67
[2018-10-08] MEDS: LEVALBUTEROL HCL SOLN NEBU 0.63 MG/3 ML NEB INH SCH ×3 (00:40→13:00)
[2018-10-08 05:32] LABS: BASOPHILS % 0.2 % (0.0-1.0); HEMATOCRIT 32.1 % (34.2-44.1); HEMOGLOBIN 9.7 g/dL (12.0-16.0); LYMPHOCYTES # (AUTO) 0.6 (1.0-3.2); LYMPHOCYTES % 11.9 % (18.0-39.1); MEAN CORPUSCULAR HEMOGLOBIN 26.9 pg (28-32); MEAN CORPUSCULAR HGB CONC 30.2 g/dL (31-35); MEAN CORPUSCULAR VOLUME 89.2 fL (81-99); MONOCYTES # (AUTO) 0.4 (0.2-0.8); MONOCYTES % 8.3 % (4.4-11.3); NEUTROPHILS # (AUTO) 4.2 (2.1-6.9); NEUTROPHILS % 78.7 % (38.7-80.0); PLATELET COUNT 336 x10e3/uL (140-360); RED CELL DISTRIBUTION WIDTH 14.6 % (11.7-14.4)
[2018-10-08 05:55] LABS: ANION GAP 9.9 mmol/L (8-16); BLOOD UREA NITROGEN 37 mg/dL (7-26); BUN/CREATININE RATIO 48 (6-25); CALCIUM 8.4 mg/dL (8.4-10.2); CARBON DIOXIDE 29 mmol/L (22-29); CHLORIDE 106 mmol/L (98-107); CREATININE, SERUM 0.77 mg/dL (0.57-1.11); EST GLOMERULAR FILTRATION RATE > 60 ML/MIN (60-); GLUCOSE 161 mg/dL (74-118); SODIUM 142 mmol/L (136-145)
[2018-10-08 05:57] LABS: POTASSIUM 2.9 mmol/L (3.5-5.1)
[2018-10-08] MEDS ORDERED: TIOTROPIUM 18 MCG INH POWDER INH SCH (06:00)
[2018-10-08] MEDS: POTASSIUM CHLORIDE 20 MEQ TAB CR PO SCH (06:34)
[2018-10-08] MEDS ORDERED: POTASSIUM CHLORIDE 20 MEQ TAB CR PO SCH ×2 (07:00)
[2018-10-08] MEDS: SALMETEROL/FLUTICASONE 250/50 INH SCH (07:00)
[2018-10-08] MEDS ORDERED: POTASSIUM CHLORIDE 20MEQ/100ML 200 ML IV SCH (07:00)
[2018-10-08] MEDS: VALSARTAN 80 MG TAB PO SCH (08:35)
[2018-10-08] MEDS: NIACIN 500 MG TABSR PO SCH (08:35)
[2018-10-08] MEDS: METOPROLOL TARTRATE 25 MG TAB PO SCH ×2 (08:35→17:26)
[2018-10-08] MEDS: HYDROCHLOROTHIAZIDE 25 MG TAB PO SCH (08:35)
[2018-10-08] MEDS: ASPIRIN 81 MG CHEW TAB PO SCH (08:35)
[2018-10-08] MEDS: CLOPIDOGREL BISULFATE 75 MG TAB PO SCH ×2 (08:35→18:37)
--- NOTE | 2018-10-08 08:35 | NUR ---
Pt received resting in bed. Alert and oriented x4. Saline lock inserted into left upper arm. Oriented to staff and surroundings, encouraged to press call castillo if help needed. Emotional support given. Fall precautions maintained. Will monitor
[2018-10-08] MEDS ORDERED: SODIUM CHLORIDE 0.9% 1000ML 1,000 ML ONE (08:58)
[2018-10-08] MEDS ORDERED: METHYLPREDNISOLONE SOD SUCC 40 MG/ML VIAL 1ML IV SCH (09:00)
[2018-10-08] MEDS: POTASSIUM CHLORIDE 20MEQ/100ML 100 ML IV SCH ×2 (09:10→11:29)
--- NOTE | 2018-10-08 10:37 | Progress Note ---
DATE: SUBJECTIVE: The patient is here for COPD exacerbation, hypovolemia and dehydration. The patient is currently complaining of some diarrhea, had been having diarrheal movement for at least three days. The patient complains of hemorrhoids, which are painful. The patient is otherwise asymptomatic. MEDICATIONS: The patient is on right now are Levalbuterol q.6 hours as needed, simvastatin 40 mg, methylprednisolone 40 mg q.12 hours, azithromycin, Xarelto 20 mg, Rocephin 1 g, hydrochlorothiazide 12.5 mg, aspirin 81 mg, losartan 80 mg, metoprolol 25 mg, tramadol 50 as needed, and Spiriva 1 capsule a day. OBJECTIVE: VITAL SIGNS: Temperature is 95.8, pulse of 66, respiration of 20, blood pressure is 105/51, pulse oximetry is 96% on 2 L of oxygen. HEENT: Normocephalic, atraumatic. Pupils are reactive to light and accommodation. CVS: S1, S2 normal. Regular rate and rhythm. ABDOMEN: Nontender, nondistended. EXTREMITIES: No clubbing, no cyanosis, no edema. LUNGS: Positive for bilateral wheezing. Positive for decreased air entry into all lung hardy. LABORATORY VALUES: Today's sodium is 142, potassium of 2.9, BUN of 37, creatinine of 0.77. Hematology; white count is 5.31, hemoglobin of 9.7, hematocrit of 32.7, and no left shift present. ASSESSMENT: 1. Chronic obstructive pulmonary disease exacerbation. The patient will be continued on Solu-Medrol. We will decrease the Solu-Medrol to 20 mg twice a day. 2. Hypertension. Continue with antihypertensive medications. 3. Hypotension and dehydration, better with IV fluids, to stop the fluid on account for congestive heart failure. 4. Atrial fibrillation. Continue with Xarelto. The patient can be discharged this evening or tomorrow morning depending on her course. We will give her some antidiarrheal agents and also replace her potassium today. Further recommendation per clinical course. MD RAMA Batista/MODL /[id number]
[2018-10-08 15:09] LABS: POTASSIUM 4.2 mmol/L (3.5-5.1)
[2018-10-08] MEDS: RIVAROXABAN 20 MG TABLET PO SCH (17:27)
[2018-10-08] MEDS: CEFTRIAXONE SOD 1 GM/NS 50 ML 50 ML IV SCH (17:27)
--- NOTE | 2018-10-08 18:38 | NUR ---
Pt given discharge instructions regarding meds, diet, activities, and follow up appointment. Emotional support given. Pt verbalized understanding of teaching. Awaiting son to pickup
== END 2018-10-08 18:50 | disposition home or self-care (01) ==
LOC: ER 15:01 → ERHOLD 19:13 → INTOOBSV 19:13 → IMCU 21:22
PROVIDERS: ADMIT Family Medicine; ATTEND Family Medicine
DX: J44.1 Chronic obstructive pulmonary disease with (acute) exacerbation (principal); E86.0 Dehydration; I10 Essential (primary) hypertension; I25.10 Atherosclerotic heart disease of native coronary artery without angina pectoris; E78.5 Hyperlipidemia, unspecified; Z87.440 Personal history of urinary (tract) infections; F10.21 Alcohol dependence, in remission
CPT/HCPCS: 36415 ×3; 71045; 80048 ×2; 80053; 82550 ×2; 82553 ×2; 83605; 83735; 84132; 84484 ×2; 85025 ×3; 87040; 93005; 94640 ×4; 96361; 99284; G0378 ×3; J0456 ×2; J0696 ×3; J2920 ×2; J2930; J3480; J7030 ×2; 96360

== ENCOUNTER 2018-12-05 13:37 | Inpatient (IN) | payer MEDICARE ==
[~2018-12-05] VITALS: Ht 162.6 cm; Wt 62.1 kg
[~2018-12-05 13:37] MED LIST changes: +PLAVIX75 MG PO
[2018-12-05] MEDS ORDERED: SODIUM CHLORIDE 0.9% 1000ML 1,000 ML IV STA (13:43)
[2018-12-05] MEDS ORDERED: ASPIRIN 81 MG CHEW TAB PO ONE (13:45)
[2018-12-05] MEDS ORDERED: ONDANSETRON HCL INJ 2MG/ML 2ML 2 MG/ML VIAL IV ONE (14:00)
[2018-12-05] MEDS: PIPER-TAZ 3.375 GM 50 ML IV SCH ×2 (14:34→21:28)
--- NOTE | 2018-12-05 14:42 | Diagnostic Imaging Report ---
EXAMINATION: PA and lateral views of the chest. COMPARISON: Portable chest 10/06/2018 CLINICAL HISTORY: Swelling DISCUSSION: Lines/tubes: None. Lungs: The lungs are well inflated and grossly clear. There is no evidence of pneumonia or pulmonary edema. Pleura: There is no pleural effusion or pneumothorax. Heart and mediastinum: Mild enlargement of the cardiac silhouette. Pulmonary vasculature is normal. Atherosclerotic calcification of the aorta. Bones and soft tissues: No acute bony abnormalities. Degenerative changes in the thoracic spine . Generalized osteopenia. IMPRESSION: Mild enlargement of the cardiac silhouette, without acute cardiopulmonary abnormalities. Signed by: Dr. Damien Jose M.D. on 12/05/2018 2:39 PM
--- NOTE | 2018-12-05 14:45 | Diagnostic Imaging Report ---
Exam: Tibia fibula, AP and lateral History: Cut on leg and swelling Comparison: None. Findings: There is normal bone mineralization for age. No acute, displaced fracture or dislocation. Joint spaces relatively well preserved. No abnormal soft tissue calcification or soft tissue defect. No soft tissue swelling. Impression: 1. No acute abnormality. Signed by: Dr. Damien Jose M.D. on 12/05/2018 2:41 PM
[2018-12-05 14:59] LABS: BASOPHILS % 0.4 % (0.0-1.0); EOSINOPHILS # (AUTO) 0.1 (0.0-0.4); EOSINOPHILS % 0.6 % (0.0-6.0); HEMATOCRIT 31.7 % (34.2-44.1); HEMOGLOBIN 9.5 g/dL (12.0-16.0); LYMPHOCYTES # (AUTO) 1.5 (1.0-3.2); LYMPHOCYTES % 14.1 % (18.0-39.1); MEAN CORPUSCULAR HEMOGLOBIN 24.8 pg (28-32); MEAN CORPUSCULAR VOLUME 82.8 fL (81-99); MONOCYTES % 8.8 % (4.4-11.3); NEUTROPHILS # (AUTO) 8.3 (2.1-6.9); NEUTROPHILS % 75.7 % (38.7-80.0); PLATELET COUNT 429 x10e3/uL (140-360); RED BLOOD COUNT 3.83 x10e6/uL (3.6-5.1); RED CELL DISTRIBUTION WIDTH 15.9 % (11.7-14.4)
[2018-12-05 15:02] LABS: INR 0.96; PROTHROMBIN TIME 13.3 seconds (11.9-14.5)
[2018-12-05 15:03] LABS: PARTIAL THROMBOPLASTIN TIME 34.9 seconds (23.8-35.5)
[2018-12-05 15:11] LABS: ALANINE AMINOTRANSFERASE 11 IU/L (0-55); ALBUMIN 2.6 g/dL (3.5-5.0); ALBUMIN/GLOBULIN RATIO 0.6 (0.8-2.0); ALKALINE PHOSPHATASE 63 IU/L (40-150); ANION GAP 17.8 mmol/L (8-16); BLOOD UREA NITROGEN 18 mg/dL (7-26); BUN/CREATININE RATIO 23 (6-25); CALCIUM 9.5 mg/dL (8.4-10.2); CARBON DIOXIDE 28 mmol/L (22-29); CHLORIDE 101 mmol/L (98-107); CREATINE KINASE 64 IU/L (29-168); CREATININE, SERUM 0.77 mg/dL (0.57-1.11); EST GLOMERULAR FILTRATION RATE > 60 ML/MIN (60-); GLUCOSE 125 mg/dL (74-118); MAGNESIUM 1.8 MG/DL (1.3-2.1); POTASSIUM 3.8 mmol/L (3.5-5.1); SODIUM 143 mmol/L (136-145)
[2018-12-05] MEDS ORDERED: MORPHINE SULFATE 2 MG/ML SYR 1ML IV PRN (15:30)
[2018-12-05] MEDS ORDERED: ONDANSETRON HCL INJ 2MG/ML 2ML 2 MG/ML VIAL IV PRN (15:30)
[2018-12-05] MEDS: VANCOMYCIN 1GM/NS 250 ML 250 ML IV SCH (15:30)
[2018-12-05] MEDS: SODIUM CHLORIDE 0.9% 1000ML 1,000 ML IV SCH (15:30)
[2018-12-05 15:31] LABS: B-TYPE NATRIURETIC PEPTIDE2 240.2 pg/mL (0-100)
[2018-12-05 16:00] VITALS: BP 114/46
--- NOTE | 2018-12-05 16:00 | NUR ---
Received pt from ER at this time. Pt is aox4 and able to verbalize needs. Denies any pain at this time. Pt was admitted for cellulitis to left lower ext. Pt is on O2L/NC. Pt is ambulatory. Pt is afebrile.
[2018-12-05 16:30] VITALS: BP 114/46
[2018-12-05 16:46] VITALS: BP 114/46
--- NOTE | 2018-12-05 21:52 | NUR ---
Per patient request, paged Dr. Rojas for an order on neb treatments
[2018-12-05 22:22] VITALS: BP 114/46
--- NOTE | 2018-12-05 22:53 | NUR ---
Dr. Rojas returned call, orders received and placed
[2018-12-06] VITALS (7 sets, daily range): BP systolic 98–149; BP diastolic 48–65
[2018-12-06] MEDS: VANCOMYCIN 1GM/NS 250 ML 250 ML IV SCH ×2 (03:17→08:49)
[2018-12-06] MEDS: SODIUM CHLORIDE 0.9% 1000ML 1,000 ML IV SCH (03:18)
[2018-12-06] MEDS: PIPER-TAZ 3.375 GM 50 ML IV SCH ×3 (05:11→22:00)
[2018-12-06 06:47] LABS: BASOPHILS % 0.3 % (0.0-1.0); EOSINOPHILS # (AUTO) 0.2 (0.0-0.4); EOSINOPHILS % 1.7 % (0.0-6.0); HEMATOCRIT 28.3 % (34.2-44.1); HEMOGLOBIN 8.1 g/dL (12.0-16.0); LYMPHOCYTES # (AUTO) 1.1 (1.0-3.2); LYMPHOCYTES % 11.9 % (18.0-39.1); MEAN CORPUSCULAR HEMOGLOBIN 24.6 pg (28-32); MEAN CORPUSCULAR HGB CONC 28.6 g/dL (31-35); MONOCYTES # (AUTO) 0.9 (0.2-0.8); MONOCYTES % 9.4 % (4.4-11.3); NEUTROPHILS # (AUTO) 7.1 (2.1-6.9); NEUTROPHILS % 76.2 % (38.7-80.0); PLATELET COUNT 355 x10e3/uL (140-360); RED BLOOD COUNT 3.29 x10e6/uL (3.6-5.1); RED CELL DISTRIBUTION WIDTH 15.9 % (11.7-14.4)
--- NOTE | 2018-12-06 07:10 | NUR ---
PATIENT IS AWAKE AND IN STABLE CONDITION WITH NO S/S OF RESPIRATORY DISTRESS. PATIENT C/O LOWER LEG PAIN 02/16- PAIN MEDICATION WAITING FOR VERIFICATION. IV FLUIDS INFUSING. DRESSING TO LEFT LOWER LEG IS DRY AND INTACT. CALL LIGHT IS WITHIN REACH, PATIENT INSTRUCTED TO CALL FOR ASSISTANCE NEEDED.
[2018-12-06] MEDS ORDERED: WARFARIN SOD 5 MG TAB PO SCH (07:15)
[2018-12-06] MEDS ORDERED: MORPHINE SULFATE INJ 4 MG/ML INJ 1ML IV PRN (07:15)
--- NOTE | 2018-12-06 07:48 | History and Physical ---
A 73-year-old female, comes in with left lower extremity swelling, erythema, and infected wound. HISTORY OF PRESENTING ILLNESS: This is Ms. Komal Bassett, a 73-year-old female with history of COPD, was in usual state of health until the patient had a traumatic wound to the left lower extremity. A gate fell on her lower extremity and the patient went to a local clinic and was given Levaquin for the erythema and redness. The patient thought it was getting better, but yesterday, the swelling and the pain increased in intensity, came in and was found to have cellulitis. The patient admitted for the same. PAST MEDICAL HISTORY: History of COPD, history of CAD, history of hypertension, history of hyperlipidemia, history of atrial fibrillation. MEDICINES: She takes at home: Aspirin 81 mg, cephalexin 500 mg, clopidogrel 75 mg, fluticasone 250/50, hydrochlorothiazide 25 mg, metoprolol 25 twice a day, niacin 500 mg, potassium 20 mEq, simvastatin 40, Spiriva 18 mcg capsules a day, tramadol, valsartan 80 mg daily, warfarin 3 mg every other day. ALLERGIES: NO KNOWN DRUG ALLERGIES. SOCIAL HISTORY: History of smoking in the past, not now currently. No EtOH. No IV drug abuse. PAST SURGICAL HISTORY: History of appendectomy and hysterectomy. REVIEW OF SYSTEMS: Negative for chest pain. Positive for shortness of breath. No nausea, vomiting, or diarrhea. No constipation. No rectal bleeding. No fever. No chills. Positive for wound on the left lower extremity with erythema and swelling and pain around it. No diplopia. No blurry vision. PHYSICAL EXAMINATION: VITAL SIGNS: Temperature is 98.1, pulse of 74, respirations 20, blood pressure is 98/48, pulse oximetry of 98% on 2 L of oxygen. HEENT: Normocephalic, atraumatic. The patient has missing teeth. CVS: S1, S2. Regular. ABDOMEN: Nontender, nondistended. LUNGS: Decreased air entry into all lung hardy. EXTREMITIES: Decreased peripheral pulses. Positive for erythematous wound with sloughing on the base, very superficial erythema around the wound and also tenderness around the wound. LABORATORY VALUES: Initial white count is 10.95, right now is 9.26, hemoglobin of 9.5, hematocrit 31.7. Chemistries; sodium 143, potassium 3.8, anion gap of 17.8, glucose of 125. BNP was 240. Troponin was negative. The patient's coags are all normal. IMAGING STUDIES: Lower extremity x-ray shows no acute abnormalities. Chest x-ray shows mild enlargement of cardiac silhouette without acute cardiopulmonary abnormalities. ASSESSMENT: 1. Cellulitis of the left lower extremity. The patient has been put on Zosyn and vancomycin. Continue with the same. Troughs to be monitored every third dose. Continue monitoring the patient. 2. Chronic obstructive pulmonary disease. Continue with albuterol and Atrovent treatment. 3. Hypertension. Continue with CV medications. 4. Atrial fibrillation and peripheral arterial disease. Continue with Plavix and also with warfarin. Further recommendation per clinical course. We will continue to monitor the patient. The patient's disposition is possible discharge in 1 to 2 days. A Wound Care consult has been done. Extra Strength Tylenol has been given for pain control. MD RAMA Batista/MERCEDESL /[id number]
--- NOTE | 2018-12-06 08:09 | NUR ---
CALLED AND SPOKE WITH DR. HURTADO REGARDING CRITICAL VANCO TROUGH LEVEL OF 23.8. ORDER TO HOLD NEXT DOSE AND OBTAIN A VANCO TROUGH BEFORE THE NEXT SCHEDULED DOSE AT 0300 TOMORROW. VANCO TROUGH ORDER PRIOR TO THE FOURTH DOSE AFTER TOMORROW.
[2018-12-06] MEDS: ASPIRIN 81 MG CHEW TAB PO SCH (08:35)
[2018-12-06] MEDS: HYDROCHLOROTHIAZIDE 25 MG TAB PO SCH (08:35)
[2018-12-06] MEDS: VALSARTAN 80 MG TAB PO SCH (08:35)
[2018-12-06] MEDS: POTASSIUM CHLORIDE 20 MEQ TAB CR PO SCH (08:35)
[2018-12-06] MEDS: NIACIN 500 MG TABSR PO SCH (08:36)
[2018-12-06] MEDS: TRAMADOL HCL 50 MG TAB PO PRN ×2 (08:36→15:48)
[2018-12-06] MEDS: METOPROLOL TARTRATE 25 MG TAB PO SCH ×2 (08:36→16:23)
[2018-12-06] MEDS: CLOPIDOGREL BISULFATE 75 MG TAB PO SCH (08:36)
[2018-12-06] MEDS ORDERED: XARELTO20 MG PO (08:39)
[2018-12-06] MEDS ORDERED: METOPROLOL TARTRATE 50 MG TAB PO SCH (09:00)
[2018-12-06 11:17] LABS: HYPOCHROMASIA MODERATE; RBC MORPHOLOGY COMMENT NORMAL
[2018-12-06 11:18] LABS: PLATELET ESTIMATE ADEQUATE; POIKILOCYTOSIS SLIGHT
[2018-12-06 11:19] LABS: PLATELET MORPHOLOGY COMMENT NORMAL
[2018-12-06] MEDS: TIOTROPIUM 18 MCG INH POWDER INH SCH (11:20)
[2018-12-06] MEDS: ALBUTEROL/IPRATROPIUM 3 ML NEB NEB PRN ×2 (11:20→15:50)
[2018-12-06 11:21] LABS: ANISOCYTOSIS MODERATE
--- NOTE | 2018-12-06 14:24 | NUR ---
CALLED AND SPOKE WITH DR. HURTADO REGARDING PATIENT NO LONGER TAKING WARFARIN AND IS CURRENTLY TAKING XARELTO AT NIGHT TIME. ORDER RECEIVED TO START PATIENT'S XARELTO HOME MED AND TO PLACE FLUIDS ON TKO.
[2018-12-06] MEDS: SALMETEROL/FLUTICASONE 250/50 INH SCH (15:02)
[2018-12-06] MEDS ORDERED: ONDANSETRON HCL 4 MG ORAL DISINTEGRATING TAB PO PRN (16:00)
--- NOTE | 2018-12-06 16:11 | NUR ---
WOUND CARE CONSULTATION: INITIAL EVALUATION Patient admitted from Home to ER for Failed treatment OP for Anterior LLE Ulcer that was non healing and increased redness. LABS: WBC9.26 and trending down since admission HGB8.1 HCT28.3 Xray LLE - No Fracture. Wound Culture - Staph. Aureus + Wound Care Consulted for LLE Ulcer Evaluation and Recommendation: PATIENT VISIT: Patient on IV ABX Left [place] ulceration covered with Foam Dressing and Xeroform. Patient states she performed dressing at home. Left Anterior Lower Leg - Ulceration 5x6x0.3cm with 40 Slough and 60% granulation pale pink wound base with redness at periwound and tissue surrounding. Patient states old wooden gate fell on her leg and made a gash and became infected. Right Heel - Skin Tear - Unknown Cause. Patient unable to recall how it happened. Cut from top to bottom. Partial thickness and has achieved hemostasis by time of assessment. IMPRESSION: 1. Left Anterior Lower Leg - Traumatic Injury Ulcer with Cellulitis 2. Right Heel - Skin Tear 3. Continue Conservative PUP RECOMMENDATION: 1. Left Anterior Lower Leg - Traumatic Injury Ulcer with Cellulitis - Cleanse wound with NS and 4x4 gauze - Mix Santyl and Hydrogel 50/50 mix and apply over wound bed then cover with Xeroform Single Layer and ABD Pad then secure with Kerlix Daily. 2. Right Heel - Skin Tear - Xeroform Single Layer and Cover with Allevyn Foam Heel Dressing Daily. 3. Continue Conservative PUP THANK YOU FOR CONSULTING WITH WOUND CARE> Addendum: 12/06/18 at 1621 by Florentino Quevedo RN Amended: Links added. Addendum: 12/06/18 at 1622 by Florentino Quevedo RN Adam Score 20 Conservative PUP Active. VISCO Mattress in place
--- NOTE | 2018-12-06 19:29 | NUR ---
PATIENT IS IN STABLE CONDITION WITH NO S/S OF RESPIRATORY DISTRESS. NO PAIN VOICED. DRESSING TO LEFT LOWER LEG IS DRY AND INTACT. IV FLUIDS INFUSING. CALL LIGHT IS WITHIN REACH, PATIENT INSTRUCTED TO CALL FOR ASSISTANCE NEEDED. BEDSIDE REPORT GIVEN TO ONCOMING NURSE.
--- NOTE | 2018-12-06 19:51 | NUR ---
RECEIVED PT IN BED AOX3 .DENIES PAIN RESPIRATIONS ARE EVEN AND UNLABORED LEFT LOWER LEG WITH CELLULITIS NO ACUTE DISTRESS NOTED .CALL LIGHT WITH IN REACH .CONTINUE TO MONITOR
[2018-12-06] MEDS: RIVAROXABAN 20 MG TABLET PO SCH (21:08)
[2018-12-06] MEDS: SIMVASTATIN 40 MG TAB PO SCH (21:09)
[2018-12-07] VITALS (7 sets, daily range): BP systolic 99–135; BP diastolic 50–62
[2018-12-07] MEDS: TRAMADOL HCL 50 MG TAB PO PRN ×3 (03:30→22:30)
[2018-12-07] MEDS: VANCOMYCIN 1GM/NS 250 ML 250 ML IV SCH ×2 (04:00→15:03)
--- NOTE | 2018-12-07 06:21 | NUR ---
VANCO TROUGH WAS 6.8 GIVEN ORDERED ABT .C/O PAIN GIVEN TRAMADOL .PT RESTING CONTINUE TO MONITOR
[2018-12-07] MEDS: PIPER-TAZ 3.375 GM 50 ML IV SCH (06:34)
[2018-12-07 07:05] LABS: INR 1.76; PROTHROMBIN TIME 21.2 seconds (11.9-14.5)
--- NOTE | 2018-12-07 07:05 | NUR ---
PATIENT IS IN STABLE CONDITION WITH NO S/S OF RESPIRATORY DISTRESS. NO PAIN VOICED. DRESSING TO LEFT LOWER LEG IS DRY AND INTACT. CALL LIGHT IS WITHIN REACH, PATIENT INSTRUCTED TO CALL FOR ASSISTANCE NEEDED.
--- NOTE | 2018-12-07 07:11 | NUR ---
REPORT GIVEN TO THE ONCOMING NURSE
[2018-12-07 07:17] LABS: ALANINE AMINOTRANSFERASE 8 IU/L (0-55); ALBUMIN 2.1 g/dL (3.5-5.0); ALBUMIN/GLOBULIN RATIO 0.6 (0.8-2.0); ALKALINE PHOSPHATASE 47 IU/L (40-150); ANION GAP 8.4 mmol/L (8-16); BLOOD UREA NITROGEN 10 mg/dL (7-26); BUN/CREATININE RATIO 16 (6-25); CALCIUM 8.2 mg/dL (8.4-10.2); CARBON DIOXIDE 31 mmol/L (22-29); CHLORIDE 103 mmol/L (98-107); CREATININE, SERUM 0.64 mg/dL (0.57-1.11); EST GLOMERULAR FILTRATION RATE > 60 ML/MIN (60-); GLUCOSE 120 mg/dL (74-118); POTASSIUM 3.4 mmol/L (3.5-5.1); SODIUM 139 mmol/L (136-145)
[2018-12-07] MEDS: ALBUTEROL/IPRATROPIUM 3 ML NEB NEB PRN ×4 (07:32→22:50)
[2018-12-07] MEDS: SALMETEROL/FLUTICASONE 250/50 INH SCH (07:56)
[2018-12-07] MEDS: TIOTROPIUM 18 MCG INH POWDER INH SCH (07:57)
[2018-12-07] MEDS: METOPROLOL TARTRATE 25 MG TAB PO SCH ×2 (08:43→16:56)
[2018-12-07] MEDS: NIACIN 500 MG TABSR PO SCH (08:43)
[2018-12-07] MEDS: POTASSIUM CHLORIDE 20 MEQ TAB CR PO SCH (08:43)
[2018-12-07] MEDS: CLOPIDOGREL BISULFATE 75 MG TAB PO SCH (08:43)
[2018-12-07] MEDS: ACETAMINOPHEN 325 MG TAB PO PRN ×2 (08:43→17:24)
[2018-12-07] MEDS: ASPIRIN 81 MG CHEW TAB PO SCH (08:44)
[2018-12-07] MEDS: HYDROCHLOROTHIAZIDE 25 MG TAB PO SCH (08:44)
[2018-12-07] MEDS: VALSARTAN 80 MG TAB PO SCH (08:44)
--- NOTE | 2018-12-07 09:44 | NUR ---
CALLED AND SPOKE WITH DR. HURTADO REGARDING CRITICAL WOUND CULTURE BEING POSITIVE FOR MRSA OF THE WOUND. SPOKE ABOUT IV ANTIBIOTICS WITH DR. HURTADO- ORDER TO D/C ZOSYN AND CONTINUE WITH VANCOMYCIN. ORDER FOR LABS TOMORROW MORNING. ASKED DR. HURTADO PER PATIENT'S REQUEST TO STOP ASPIRIN D/T PATIENT NOT TAKING IT ANYMORE.
--- NOTE | 2018-12-07 09:57 | Progress Note ---
DATE: 12/07/2018 SUBJECTIVE: The patient is here for lower extremity cellulitis. The patient is currently feeling better. Pain is getting better. Wound care has dressed the wound. The patient is currently on IV antibiotics, cefepime and vancomycin. The patient has history of COPD, had some wheezing last night and is better after albuterol and Atrovent treatments. MEDICATIONS: She is on albuterol and Atrovent DuoNeb treatments, Plavix, fluticasone, Advair 250/50, metoprolol twice a day, Zosyn and vancomycin. The patient is also on Spiriva HandiHaler and Diovan. PHYSICAL EXAMINATION: VITAL SIGNS: On examination, temperature 97.6, pulse of 74, respirations of 18, blood pressure is 99/62, and pulse oximetry of 96%. HEENT: Normocephalic and atraumatic. Pupils are reactive to light and accommodation. CVS: S1 and S2 normal. Regular rate and rhythm. ABDOMEN: Nontender and nondistended. EXTREMITIES: No clubbing. No cyanosis. No edema. ASSESSMENT: 1. Cellulitis of the left lower extremity. The patient is on Zosyn and vancomycin. Continue the same. 2. Chronic obstructive pulmonary disease. Continue with albuterol and Atrovent treatment. We will increase in the intensity of treatment to q.4 hours. 3. Hypertension. Continue on the CV medication. 4. Atrial fibrillation and peripheral artery disease. Continue with Eliquis and the patient is also on Plavix. Further recommendation per clinical course. Wound care to determine the course of treatment for the wound. We will keep the leg elevated and further recommendation per clinical course. MD RAMA Batista/MODL /[id number]
--- NOTE | 2018-12-07 18:10 | NUR ---
CALL PLACED OUT TO DR. HURTADO REGARDING PATIENT'S PRN BREATHING TREATMENT- CALLED TO INQUIRE IF PATIENT'S FREQUENCY CAN BE CHANGED FROM Q6H TO Q4H. PATIENT STATES HER AND DR. HURTADO SPOKE ABOUT THE BREATHING TREATMENT FREQUENCY CHANGE THIS MORNING- AWAITING CALLBACK.
--- NOTE | 2018-12-07 18:15 | NUR ---
DR. HURTADO STATED TO SWITCH PRN BREATHING TREATMENTS TO Q4H AND HE WILL SEE THE PATIENT'S WOUND TOMORROW MORNING.
--- NOTE | 2018-12-07 19:20 | NUR ---
PATIENT IS IN STABLE CONDITION WITH NO S/S OF RESPIRATORY DISTRESS. NO PAIN VOICED. DRESSING INTACT TO LEFT LOWER LEG AND WILL BE CHANGED THIS EVENING. O2 APPLIED. CALL LIGHT IS WITHIN REACH, PATIENT INSTRUCTED TO CALL FOR ASSISTANCE NEEDED. BEDSIDE REPORT GIVEN TO ONCOMING NURSE.
--- NOTE | 2018-12-07 20:00 | NUR ---
RECEIVED PT IN BED AOX3 .DENIES PAIN .FAMILY AT THE BEDSIDE NOTED DIFFICULTY BREATHING .CALL LIGHT WITH IN REACH CONTINUE TO MONITOR
[2018-12-07] MEDS: RIVAROXABAN 20 MG TABLET PO SCH (21:22)
[2018-12-07] MEDS: SIMVASTATIN 40 MG TAB PO SCH (21:22)
[2018-12-07 23:09] LABS: CLARITY,URINE HAZY (CLEAR); COLOR,URINE YELLOW (YELLOW)
[2018-12-07 23:10] LABS: BILIRUBIN,URINE NEGATIVE (NEGATIVE); KETONES,URINE NEGATIVE (NEGATIVE); LEUKOCYTE ESTERASE ,URINE TRACE (NEGATIVE); NITRITE,URINE NEGATIVE (NEGATIVE); PROTEIN,URINE DIPSTICK TRACE (NEGATIVE); URINE UROBILINOGEN 0.2 mg/dL (0.2 - 1)
[2018-12-07 23:11] LABS: BACTERIA,URINE MANY /HPF; EPITHELIAL CELLS,URINE FEW /LPF; YEAST,URINE FEW
[2018-12-08] VITALS (8 sets, daily range): BP systolic 120–168; BP diastolic 58–82
[2018-12-08] MEDS: COLLAGENASE 5 GM TUBE TOP SCH ×2 (01:29→09:01)
[2018-12-08] MEDS: ALBUTEROL/IPRATROPIUM 3 ML NEB NEB PRN ×3 (03:30→09:15)
[2018-12-08] MEDS: VANCOMYCIN 1GM/NS 250 ML 250 ML IV SCH ×2 (04:00→15:00)
[2018-12-08] MEDS: TRAMADOL HCL 50 MG TAB PO PRN ×3 (04:30→22:27)
--- NOTE | 2018-12-08 05:54 | NUR ---
DURING THE NIGHT PT C/O SOB AND GIVEN ORDERED BREATHING TX .C/O PAIN TO THE LEFT LEG AND MEDICATED WITH TRAMADOL FAMILY AT THE BEDSIDE .CALL LIGHT WITH IN REACH.
[2018-12-08 06:49] LABS: HEMOGLOBIN 7.3 g/dL (12.0-16.0); MEAN CORPUSCULAR HEMOGLOBIN 24.5 pg (28-32); MEAN CORPUSCULAR HGB CONC 29.2 g/dL (31-35); MEAN CORPUSCULAR VOLUME 83.9 fL (81-99); PLATELET COUNT 381 x10e3/uL (140-360); RED BLOOD COUNT 2.98 x10e6/uL (3.6-5.1); RED CELL DISTRIBUTION WIDTH 15.9 % (11.7-14.4)
[2018-12-08 07:03] LABS: ANION GAP 11.7 mmol/L (8-16); BLOOD UREA NITROGEN 10 mg/dL (7-26); BUN/CREATININE RATIO 18 (6-25); CALCIUM 8.7 mg/dL (8.4-10.2); CARBON DIOXIDE 29 mmol/L (22-29); CHLORIDE 101 mmol/L (98-107); CREATININE, SERUM 0.57 mg/dL (0.57-1.11); EST GLOMERULAR FILTRATION RATE > 60 ML/MIN (60-); GLUCOSE 102 mg/dL (74-118); POTASSIUM 3.7 mmol/L (3.5-5.1); SODIUM 138 mmol/L (136-145)
--- NOTE | 2018-12-08 07:12 | NUR ---
REPORT GIVEN TO THE ON COMING NURSE
[2018-12-08] MEDS: SALMETEROL/FLUTICASONE 250/50 INH SCH (07:15)
[2018-12-08] MEDS: TIOTROPIUM 18 MCG INH POWDER INH SCH (07:20)
--- NOTE | 2018-12-08 08:25 | NUR ---
Pt received resting in bed. Alert and oriented x4. Pt had episode of SOB. Saline lock #20 inserted into right hand after 3rd attempt. On contact isolation for MRSA in wound. Oriented to staff and surroundings, encouraged to press call castillo if help needed. Pt verbalized understanding of teaching. All meds given as ordered. Will follow up.
[2018-12-08] MEDS: VALSARTAN 80 MG TAB PO SCH (09:00)
[2018-12-08] MEDS: METHYLPREDNISOLONE SOD SUCC 40 MG/ML VIAL 1ML IV SCH ×2 (09:00→21:31)
[2018-12-08] MEDS: NIACIN 500 MG TABSR PO SCH (09:01)
[2018-12-08] MEDS: CLOPIDOGREL BISULFATE 75 MG TAB PO SCH (09:01)
[2018-12-08] MEDS: POTASSIUM CHLORIDE 20 MEQ TAB CR PO SCH (09:01)
[2018-12-08] MEDS: METOPROLOL TARTRATE 25 MG TAB PO SCH ×2 (09:01→17:07)
[2018-12-08] MEDS: HYDROCHLOROTHIAZIDE 25 MG TAB PO SCH (09:01)
--- NOTE | 2018-12-08 09:43 | Progress Note ---
DATE: 12/08/2018 SUBJECTIVE: The patient is a 73-year-old female comes in with left lower extremity cellulitis and positive for MRSA at this time. Yesterday, the patient did have some shortness of breath, increase of dyspnea, and no PND and no orthopnea. The patient had difficulty walking to the bathroom secondary to short of breath. No chest pain noted. The patient's left lower extremity pain is better. Wound care is on the case. OBJECTIVE: VITAL SIGNS: Temperature is 97.9, pulse of 78, respirations of 18, blood pressure is 168/82, and pulse oximetry of 95%. She is on 3 L of oxygen at 95%. HEENT: Normocephalic, atraumatic. Pupils are reactive to light and accommodation. LUNGS: Positive for scattered inspiratory wheezes. ABDOMEN: Nontender, nondistended. EXTREMITIES: Left lower extremity, wound with sloughing on the base, needs aggressive wound care. The patient is MRSA positive. The wound is about the same size. Erythema present around the wound and tenderness present around the wound. LABORATORY VALUES: White count is pending today. Chemistries are also pending. Coags, the patient's INR last was 1.76. ASSESSMENT AND PLAN: 1. Cellulitis of the left lower extremity with MRSA positive. The patient is on vancomycin. We will continue on the same. Trough will be done. 2. Chronic obstructive pulmonary disorder. We will give Atrovent treatments q.4 hours plus start the patient on Solu-Medrol 40 mg IV b.i.d. and also start the patient on doxycycline. 3. Hypertension. Continue on CV medication. 4. Atrial fibrillation. She is on Eliquis and the patient is also on Plavix secondary to peripheral artery disease and coronary artery disease. Continue all the CV medications. 5. Additional diagnosis includes chronic hypoxia. Further recommendation per clinical course. A chest x-ray will also be obtained today to assess the shortness of breath. MD RAMA Batista/MERCEDESL /[id number]
[2018-12-08] MEDS: DOXYCYCLINE HYCLATE 100 MG in SODIUM CHLORIDE 0.9% 100 ML 100 ML IV SCH (09:50)
--- NOTE | 2018-12-08 10:15 | NUR ---
Pt is breathing much better. Emotional support given. Call castillo within reach. Will monitor
--- NOTE | 2018-12-08 12:59 | Diagnostic Imaging Report ---
EXAMINATION: PA and lateral views of the chest. COMPARISON: 12/05/2018 CLINICAL HISTORY: COPD exacerbation DISCUSSION: The lungs are well-inflated. No airspace consolidation. Patchy perihilar airspace opacities with interval development of trace bilateral pleural effusions. Stable cardiomediastinal contour with mild enlargement of the cardiac silhouette. Atherosclerotic calcification of the thoracic aorta. No acute osseous abnormality. Surgical clips project over the left lower cervical region. IMPRESSION: Unchanged mild enlargement of the cardiac silhouette with interval development of mild interstitial edema and trace bilateral pleural effusions. Signed by: Dr. Melo Machado M.D. on 12/08/2018 12:56 PM
[2018-12-08] MEDS: ALBUTEROL/IPRATROPIUM 3 ML NEB NEB SCH ×3 (13:50→20:20)
[2018-12-08 14:20] LABS: % IRON SATURATION 2 % (15-50); IRON 7 ug/dL (50-170); TOTAL IRON BINDING CAPACITY 283 ug/dL (261-478); TRANSFERRIN 202 mg/dL (180-382)
[2018-12-08 14:57] LABS: HEMATOCRIT 29.5 % (34.2-44.1); HEMOGLOBIN 8.5 g/dL (12.0-16.0)
[2018-12-08] MEDS ORDERED: ALBUTEROL/IPRATROPIUM 3 ML NEB NEB SCH (15:00)
--- NOTE | 2018-12-08 19:00 | NUR ---
Patient visited in room during nursing rounds. Patient alert and oriented x3. No distress noted. On 2L NC. Pt on contact isolation for MRSA of wound left lower leg covered with dressing (C/D/I). Patient on scheduled IV antibiotic and breathing treatment. Call castillo within reach. Will monitor closely.
[2018-12-08] MEDS: RIVAROXABAN 20 MG TABLET PO SCH (21:31)
[2018-12-08] MEDS: SIMVASTATIN 40 MG TAB PO SCH (21:32)
[2018-12-09] VITALS (7 sets, daily range): BP systolic 127–166; BP diastolic 57–77
[2018-12-09] MEDS: ALBUTEROL/IPRATROPIUM 3 ML NEB NEB SCH ×7 (00:15→20:05)
[2018-12-09] MEDS: VANCOMYCIN 1GM/NS 250 ML 250 ML IV SCH ×2 (03:00→16:43)
[2018-12-09] MEDS: SALMETEROL/FLUTICASONE 250/50 INH SCH (06:00)
[2018-12-09] MEDS: TIOTROPIUM 18 MCG INH POWDER INH SCH (06:00)
[2018-12-09 06:20] LABS: HEMATOCRIT 26.7 % (34.2-44.1); HEMOGLOBIN 7.7 g/dL (12.0-16.0); LYMPHOCYTES # (AUTO) 0.5 (1.0-3.2); LYMPHOCYTES % 6.4 % (18.0-39.1); MEAN CORPUSCULAR HEMOGLOBIN 24.6 pg (28-32); MEAN CORPUSCULAR HGB CONC 28.8 g/dL (31-35); MEAN CORPUSCULAR VOLUME 85.3 fL (81-99); MONOCYTES # (AUTO) 0.2 (0.2-0.8); MONOCYTES % 2.9 % (4.4-11.3); NEUTROPHILS # (AUTO) 6.4 (2.1-6.9); NEUTROPHILS % 89.6 % (38.7-80.0); PLATELET COUNT 441 x10e3/uL (140-360); RED BLOOD COUNT 3.13 x10e6/uL (3.6-5.1); RED CELL DISTRIBUTION WIDTH 15.9 % (11.7-14.4)
[2018-12-09 06:42] LABS: ANION GAP 11.1 mmol/L (8-16); BLOOD UREA NITROGEN 15 mg/dL (7-26); BUN/CREATININE RATIO 25 (6-25); CALCIUM 9.1 mg/dL (8.4-10.2); CARBON DIOXIDE 32 mmol/L (22-29); CHLORIDE 99 mmol/L (98-107); CREATININE, SERUM 0.59 mg/dL (0.57-1.11); EST GLOMERULAR FILTRATION RATE > 60 ML/MIN (60-); GLUCOSE 166 mg/dL (74-118); POTASSIUM 4.1 mmol/L (3.5-5.1); SODIUM 138 mmol/L (136-145)
--- NOTE | 2018-12-09 07:44 | Progress Note ---
DATE: 12/09/2018 SUBJECTIVE: The patient is here for cellulitis of the left lower extremity. MRSA positive cultures have been grown from the wound. The patient is currently having some shortness of breath. No chest pain. Positive for dyspnea on exertion. No nausea, vomiting, or diarrhea. No constipation. The patient does not have any chest pains at this time. PHYSICAL EXAMINATION: VITAL SIGNS: Temperature is 96.0, pulse of 77, respirations of 18, blood pressure is 141/60. HEENT: Normocephalic, atraumatic. Pupils are reactive to light and accommodation. CVS: S1 and S2 normal. Regular rate and rhythm. LUNGS: Decreased air entry at lung bases. ABDOMEN: Nontender, nondistended. EXTREMITIES: No clubbing. No cyanosis. Left lower extremity with erythematous ulcer with sloughing and edema present on the right lower extremity also. ASSESSMENT: 1. Methicillin-resistant Staphylococcus aureus wound. 2. Cellulitis of the lower extremity. Continue vancomycin. 3. Hypertension. Continue with antihypertensive. The patient is anemic, possibly blood loss anemia. PLAN: Plan is to give her 2 units of PRBCs with 20 of Lasix in between and recheck H and H since H and H is dropping. Further recommendation per clinical course. We will continue to monitor the patient. MD RAMA Batista/MODL /[id number]
[2018-12-09] MEDS ORDERED: FUROSEMIDE INJ 10 MG/ML 2 ML VIAL IV PRN (07:45)
[2018-12-09] MEDS ORDERED: SODIUM CHLORIDE 0.9% 250ML 250 ML IV ONE (07:45)
--- NOTE | 2018-12-09 08:30 | NUR ---
Pt received resting in bed. Hgb 7.7. Dr. Rojas ordered 2 units of PRBC and 20mg Lasix to be given in between. Saline lock #20 inserted into left hand. All meds given as ordered. Will monitor
[2018-12-09] MEDS: DOXYCYCLINE HYCLATE 100 MG in SODIUM CHLORIDE 0.9% 100 ML 100 ML IV SCH (08:31)
[2018-12-09] MEDS: HYDROCHLOROTHIAZIDE 25 MG TAB PO SCH (08:31)
[2018-12-09] MEDS: VALSARTAN 80 MG TAB PO SCH (08:31)
[2018-12-09] MEDS: METHYLPREDNISOLONE SOD SUCC 40 MG/ML VIAL 1ML IV SCH ×2 (08:31→21:08)
[2018-12-09] MEDS: COLLAGENASE 5 GM TUBE TOP SCH (08:32)
[2018-12-09] MEDS: CLOPIDOGREL BISULFATE 75 MG TAB PO SCH (08:32)
[2018-12-09] MEDS: NIACIN 500 MG TABSR PO SCH (08:32)
[2018-12-09] MEDS: METOPROLOL TARTRATE 25 MG TAB PO SCH ×2 (08:32→16:44)
[2018-12-09] MEDS: POTASSIUM CHLORIDE 20 MEQ TAB CR PO SCH (08:32)
[2018-12-09] MEDS: TRAMADOL HCL 50 MG TAB PO PRN ×2 (11:00→21:33)
[2018-12-09 12:33] LABS: ANISOCYTOSIS MODE; HYPOCHROMASIA SLIGHT; POIKILOCYTOSIS SLIGHT; RBC MORPHOLOGY COMMENT NORMAL
[2018-12-09 12:34] LABS: PLATELET ESTIMATE ADEQUATE; PLATELET MORPHOLOGY COMMENT MANY LARGE
--- NOTE | 2018-12-09 14:30 | NUR ---
Pt is O negative. Blood is on back order. Will be ordered dipti
--- NOTE | 2018-12-09 18:10 | NUR ---
Called lab in regards to blood transfusion. No blood available yet. Will endorse to next shift
--- NOTE | 2018-12-09 18:50 | NUR ---
Jayde (day nurse) spoke with Dr. Rojas to inform that patient's PRBC (type: O negative) is not available and is on back order. MD aware and stated "that's fine."
--- NOTE | 2018-12-09 19:00 | NUR ---
Patient visited in room during nursing rounds. Patient alert and oriented x3. No distress noted. On 2L NC. Pt on contact isolation for MRSA of wound left lower leg covered with dressing (C/D/I). Patient on scheduled IV antibiotic and breathing treatment. Patient aware still waiting on 2 units of PRBC (O negative) to be delivered. Call castillo within reach. Will monitor closely.
[2018-12-09] MEDS: RIVAROXABAN 20 MG TABLET PO SCH (21:08)
[2018-12-09] MEDS: SIMVASTATIN 40 MG TAB PO SCH (21:08)
[2018-12-10] VITALS (9 sets, daily range): BP systolic 142–184; BP diastolic 66–99
[2018-12-10] MEDS: VANCOMYCIN 1GM/NS 250 ML 250 ML IV SCH ×2 (03:50→15:03)
[2018-12-10] MEDS: ALBUTEROL/IPRATROPIUM 3 ML NEB NEB SCH ×6 (04:10→23:10)
--- NOTE | 2018-12-10 07:00 | NUR ---
PATIENT IS AWAKE, ALERT, AND IN STABLE CONDITION WITH NO S/S OF RESPIRATORY DISTRESS. PATIENT DENIES PAIN AT THIS TIME. DRESSING TO LEFT LOWER LEG IS DRY AND INTACT. CALL LIGHT IS WITHIN REACH OF PATIENT AND PATIENT INSTRUCTED TO CALL FOR ASSISTANCE NEEDED.
[2018-12-10] MEDS ORDERED: FLUCONAZOLE 100 MG TAB PO NR (07:30)
[2018-12-10] MEDS: SALMETEROL/FLUTICASONE 250/50 INH SCH (07:37)
[2018-12-10] MEDS: TIOTROPIUM 18 MCG INH POWDER INH SCH (07:37)
--- NOTE | 2018-12-10 07:39 | Progress Note ---
DATE: 12/10/2018 SUBJECTIVE: The patient is alert and oriented x3. Complains of shortness of breath on exertion. The patient supposed to get 2 units of PRBCs yesterday, but blood has not arrived yet. Currently fatigued and tired, and the lesion on the left lower extremity is getting better according to the patient. No rectal bleeding. No hematochezia. No hematemesis either. PHYSICAL EXAMINATION: VITAL SIGNS: Temperature is 96.3, pulse of 79, respirations 16, blood pressure is 158/72, and pulse oximetry of 97% on 4 L of oxygen. HEENT: Normocephalic and atraumatic. Pupils are reactive to light and accommodation. Icterus is negative. Positive for pallor. CVS: S1 and S2, regular. ABDOMEN: Nontender and nondistended. EXTREMITIES: Left lower extremity is in bandage. The last it looked positive for sloughing in the ulceration and also erythema and tenderness around the wound. Wound Care is on consult. LABORATORY DATA: The patient's laboratory values from yesterday hemoglobin was 7.7 and hematocrit 26.7. Chemistries; sodium 138, potassium of 4.1, BUN of 15, creatinine of 0.59. The patient's guaiac stool was negative. MICROBIOLOGY: E-species in urine culture has been identified and also Staph aureus and wound culture. MEDICATIONS: The patient is on Solu-Medrol 40 mg q.12 hours, Xarelto 20 mg at bedtime, simvastatin 40 mg at bedtime, collagenase santyl cream, niacin, Plavix, doxycycline, losartan, hydrochlorothiazide, acetaminophen as needed, fluconazole has been added, Lasix 20 mg one time transfusion is given, IV transfusion and morphine sulfate as needed q.4 hours. ASSESSMENT: 1. Methicillin-resistant Staphylococcus aureus wound. 2. Cellulitis of left lower extremity. 3. Hypertension. 4. Chronic obstructive pulmonary disease. 5. Anemia. 6. Iron deficiency. PLAN: 1. Plan is to give her 2 units of PRBC with 20 of Lasix in between. Recheck again H and H. 2. Continue on vancomycin, trough has been done. The last trough is 15. We will continue the same dose of vancomycin 1 g. She is also going to get an additional dose of fluconazole for E-species in the urine. SCDs for DVT prophylaxis and Pepcid for GI prophylaxis. Further recommendation per clinical course. We will continue to monitor the patient. MD RAMA Batista/ALEXANDER /[id number]
[2018-12-10 07:43] LABS: HEMATOCRIT 27.3 % (34.2-44.1); HEMOGLOBIN 7.9 g/dL (12.0-16.0); LYMPHOCYTES # (AUTO) 0.5 (1.0-3.2); LYMPHOCYTES % 4.2 % (18.0-39.1); MEAN CORPUSCULAR HEMOGLOBIN 24.3 pg (28-32); MEAN CORPUSCULAR HGB CONC 28.9 g/dL (31-35); MONOCYTES # (AUTO) 0.5 (0.2-0.8); MONOCYTES % 4.1 % (4.4-11.3); NEUTROPHILS % 90.3 % (38.7-80.0); PLATELET COUNT 580 x10e3/uL (140-360); RED BLOOD COUNT 3.25 x10e6/uL (3.6-5.1); RED CELL DISTRIBUTION WIDTH 15.8 % (11.7-14.4)
[2018-12-10] MEDS: TRAMADOL HCL 50 MG TAB PO PRN (08:29)
[2018-12-10] MEDS: POTASSIUM CHLORIDE 20 MEQ TAB CR PO SCH (08:30)
[2018-12-10] MEDS: PANTOPRAZOLE SOD 40 MG TABEC PO SCH (08:34)
[2018-12-10] MEDS: METHYLPREDNISOLONE SOD SUCC 40 MG/ML VIAL 1ML IV SCH ×2 (08:34→20:39)
[2018-12-10] MEDS: METOPROLOL TARTRATE 25 MG TAB PO SCH ×2 (08:35→17:00)
[2018-12-10] MEDS: CLOPIDOGREL BISULFATE 75 MG TAB PO SCH (08:35)
[2018-12-10] MEDS: HYDROCHLOROTHIAZIDE 25 MG TAB PO SCH (08:35)
[2018-12-10] MEDS: VALSARTAN 80 MG TAB PO SCH (08:35)
[2018-12-10] MEDS: NIACIN 500 MG TABSR PO SCH (08:35)
[2018-12-10] MEDS: DOXYCYCLINE HYCLATE 100 MG in SODIUM CHLORIDE 0.9% 100 ML 100 ML IV SCH (09:14)
[2018-12-10] MEDS: COLLAGENASE 5 GM TUBE TOP SCH (09:20)
--- NOTE | 2018-12-10 09:26 | NUR ---
WOUND CARE COMPLETED TO PATIENT'S LEFT LOWER LEG AT 0920. PATIENT TOLERATED DRESSING CHANGE WELL. DRESSING TO LEFT LOWER LEG IS DRY AND INTACT.
--- NOTE | 2018-12-10 12:07 | NUR ---
CALLED AND SPOKE WITH LAB REGARDING BLOOD ORDER. LAB IS STILL WAITING ON BLOOD ORDER AND WILL CALL WHEN BLOOD BECOMES AVAILABLE.
--- NOTE | 2018-12-10 14:53 | NUR ---
CALLED AND SPOKE WITH DR. HURTADO REGARDING PATIENT'S BP OF 182/99- NEW ORDER RECEIVED FOR CLONIDINE ONE TIME. DR. HURTADO INFORMED OF BLOOD BEING AVAILABLE AND PATIENT'S HGB OF 7.9- ORDER TO INFUSE ONE BAG OF PRBC AND TO INFUSE LASIX POST BLOOD TRANSFUSION.
[2018-12-10] MEDS ORDERED: CLONIDINE HCL 0.1 MG TAB PO ONE (15:00)
--- NOTE | 2018-12-10 16:15 | NUR ---
ORDERS FOR LTAC CHOICE LETTER ON CHART COPY OF CHOICE LETTER TO PT CEASAR HAILE WITH [facility] NOTIFIED OF CONSULT MOT INITIATED AND PLACED IN PACKET AT DESK PT GETTING BLOOD TRANSFUSION TODAY PT STATES SHE MIGHT GO HOME AFTER THE BLOOD TRANSFUSION IF SHE FEELS BETTER
--- NOTE | 2018-12-10 16:37 | NUR ---
Nutrition Screen Note RD Recommendation for Physician: -Continue cardiac diet as ordered Plan of Care: RD following, monitoring for tolerance and adequacy Nutrition reason for involvement: LOS Primary Diagnose(s): 1. Methicillin-resistant Staphylococcus aureus wound. 2. Cellulitis of left lower extremity. PMH: COPD, CAD, HTN, HLD, Afib Ht: 64in Wt: 137lb BMI: 23.5kg/m2 IBW: 120lb RD Assessment: (12/10) Chart reviewed. Labs and meds reviewed. 73yo F, who was admitted for LLE cellulitis. Visited pt in the room. Pt reported fair appetite with 50-100% recorded meal intake. Family was bringing fast foods to feed pt. Pt denied any nausea or vomiting. No complains of chewing or swallowing difficulty. Pt has lost ~30lbs (intentional) since August 2018 through lifestyle changes. Will continue to monitor and follow. Current Diet: cardiac diet Malnutrition Evaluation (12/10) The patient does not meet criteria for a specified degree of malnutrition at this time. Will re-evaluate at follow-up as appropriate. Diet Education Needs Assessment: Diet education not indicated. Nutrition Care Level: low Signed: Ivone Sol, MS, RD, LD
--- NOTE | 2018-12-10 18:09 | NUR ---
CALLED AND SPOKE WITH DR. HURTADO REGARDING PATIENT'S BP OF 184/68 ASSESSED MANUALLY. NEW ORDERS RECEIVED FOR IV LASIX NOW, PRN HYDRALAZINE, AND ORDER TO TRANSFUSE BLOOD ONCE THE BP IS LESS THAN 160.
[2018-12-10] MEDS ORDERED: FUROSEMIDE INJ 10 MG/ML 2 ML VIAL IV ONE ×2 (18:15→23:00)
--- NOTE | 2018-12-10 18:32 | NUR ---
IV LASIX ADMINISTERED TO PATIENT AT 1829. PATIENT REFUSED BED ALARM AND WILL CALL FOR ASSISTANCE PRIOR TO AMBULATING IF SYMPTOMS OF DIZZINESS OCCUR.
--- NOTE | 2018-12-10 19:20 | NUR ---
PATIENT IS SITTING UP ON THE SIDE OF THE BED POST AMBULATING TO THE RESTROOM. PATIENT IS IN STABLE CONDITION WITH NO S/S OF RESPIRATORY DISTRESS. NO PAIN VOICED. DRESSING TO LEFT LOWER LEG IS DRY AND INTACT. SON PRESENT IN ROOM. CALL LIGHT IS WITHIN REACH, PATIENT INSTRUCTED TO CALL FOR ASSISTANCE NEEDED. BEDSIDE REPORT GIVEN TO ONCOMING NURSE.
--- NOTE | 2018-12-10 20:00 | NUR ---
Received change of shift report from AM nurse. Walking rounds completed.
[2018-12-10] MEDS: RIVAROXABAN 20 MG TABLET PO SCH (20:39)
[2018-12-10] MEDS: SIMVASTATIN 40 MG TAB PO SCH (20:40)
[2018-12-10] MEDS: HYDRALAZINE HCL 20 MG/ML VIAL IV PRN (20:40)
--- NOTE | 2018-12-10 22:47 | NUR ---
IV leaking. Restarted IV to left back FA x2 sticks.
[2018-12-10] MEDS ORDERED: SODIUM CHLORIDE 0.9% 50ML 50 ML ONE (23:51)
[2018-12-11] VITALS (7 sets, daily range): BP systolic 145–185; BP diastolic 57–76
--- NOTE | 2018-12-11 | NUR ---
Resited IV to Left lower arm. Patient tolerated well. 20G to left arm. Patient given i unit of blood. Patient tolerated well with no s and s. Lasix given post blood transfusion.
[2018-12-11] MEDS: ALBUTEROL/IPRATROPIUM 3 ML NEB NEB SCH ×4 (02:50→15:24)
[2018-12-11] MEDS: VANCOMYCIN 1GM/NS 250 ML 250 ML IV SCH (03:31)
--- NOTE | 2018-12-11 04:55 | NUR ---
Received change of shift report from AM nurse. Walking rounds completed.
--- NOTE | 2018-12-11 05:15 | NUR ---
Patient up to the bathroom with asst. Dressing is dry and intact to left leg. Pt has no c/.o at this time. Continue monitor.
[2018-12-11 07:22] LABS: BASOPHILS % 0.1 % (0.0-1.0); HEMATOCRIT 30.6 % (34.2-44.1); HEMOGLOBIN 9.1 g/dL (12.0-16.0); LYMPHOCYTES # (AUTO) 0.5 (1.0-3.2); LYMPHOCYTES % 4.4 % (18.0-39.1); MEAN CORPUSCULAR HEMOGLOBIN 25.1 pg (28-32); MEAN CORPUSCULAR HGB CONC 29.7 g/dL (31-35); MEAN CORPUSCULAR VOLUME 84.5 fL (81-99); MONOCYTES # (AUTO) 0.6 (0.2-0.8); NEUTROPHILS # (AUTO) 9.8 (2.1-6.9); NEUTROPHILS % 88.9 % (38.7-80.0); PLATELET COUNT 558 x10e3/uL (140-360); RED BLOOD COUNT 3.62 x10e6/uL (3.6-5.1); RED CELL DISTRIBUTION WIDTH 15.6 % (11.7-14.4)
[2018-12-11 07:37] LABS: ANION GAP 16.7 mmol/L (8-16); BLOOD UREA NITROGEN 27 mg/dL (7-26); BUN/CREATININE RATIO 35 (6-25); CALCIUM 9.4 mg/dL (8.4-10.2); CARBON DIOXIDE 35 mmol/L (22-29); CHLORIDE 94 mmol/L (98-107); CREATININE, SERUM 0.77 mg/dL (0.57-1.11); EST GLOMERULAR FILTRATION RATE > 60 ML/MIN (60-); GLUCOSE 186 mg/dL (74-118); POTASSIUM 3.7 mmol/L (3.5-5.1); SODIUM 142 mmol/L (136-145)
[2018-12-11] MEDS: TIOTROPIUM 18 MCG INH POWDER INH SCH (07:45)
[2018-12-11] MEDS: SALMETEROL/FLUTICASONE 250/50 INH SCH (07:45)
--- NOTE | 2018-12-11 07:56 | NUR ---
CALL PLACED OUT TO DR. HURTADO REGARDING CRITICAL VANCO TROUGH OF 34.9; ALSO INFORMED DR. HURTADO O F PATIENT'S HGB LEVEL OF 9.1 TODAY. AWAITING CALLBACK FROM DR. HURTADO.
--- NOTE | 2018-12-11 07:59 | NUR ---
RECEIVED A CALLBACK FROM DR. HURTADO -ORDER TO HOLD VANCOMYCIN FOR [address] HURTADO STATED PATIENT CAN TRANSFER IF ROOM ACCEPTED AND BE PLACED ON BACTRIM FOR 10 DAYS.
[2018-12-11] MEDS: METHYLPREDNISOLONE SOD SUCC 40 MG/ML VIAL 1ML IV SCH (08:32)
[2018-12-11] MEDS: PANTOPRAZOLE SOD 40 MG TABEC PO SCH (08:32)
[2018-12-11] MEDS: DOXYCYCLINE HYCLATE 100 MG in SODIUM CHLORIDE 0.9% 100 ML 100 ML IV SCH (08:35)
[2018-12-11] MEDS: NIACIN 500 MG TABSR PO SCH (08:37)
[2018-12-11] MEDS: CLOPIDOGREL BISULFATE 75 MG TAB PO SCH (08:37)
[2018-12-11] MEDS: HYDROCHLOROTHIAZIDE 25 MG TAB PO SCH (08:38)
[2018-12-11] MEDS: POTASSIUM CHLORIDE 20 MEQ TAB CR PO SCH (08:38)
[2018-12-11] MEDS: METOPROLOL TARTRATE 25 MG TAB PO SCH (08:39)
[2018-12-11] MEDS: VALSARTAN 80 MG TAB PO SCH (08:39)
--- NOTE | 2018-12-11 08:58 | NUR ---
CALLED AND SPOKE WITH DR. HERRERA REGARDING DR. HURTADO'S ORDER TO HOLD VANCOMYCIN FOR 48 HOURS AND OKAY WITH THE PATIENT'S HGB OF 9.1. INFORMED [address] HERRERA THAT CASE MANAGEMENT CALLED TO INFORM ROOM IS AVAILABLE AT [facility] AND DR. HURTADO IS OKAY FOR THE PATIENT TO TRANSFER. DR. HERRERA STATED TO TRANSFER THE PATIENT. DR. HERRERA AWARE DR. HURTADO WANTED THE PATIENT TO START ON BACRTIM FOR 10 DAYS IF PATIENT TRANSFERRED- RECEIVED ORDER FROM DR. HERRERA FOR PO BACTRIM TWICE A DAY FOR 10 DAYS.
[2018-12-11] MEDS ORDERED: TRIMETHOPRIM/SULFAMETHOXAZOLE 160-800 MG TAB PO SCH (09:15)
[2018-12-11] MEDS: COLLAGENASE 5 GM TUBE TOP SCH (10:11)
--- NOTE | 2018-12-11 10:20 | NUR ---
WOUND CARE COMPLETED AT 1011
--- NOTE | 2018-12-11 12:33 | NUR ---
CALLED REPORT TO [facility] - SPOKE WITH DANNIE HERNANDEZ AT 1227. PROVIDED PATIENT INFORMATION AND CALLBACK NUMBER.
[2018-12-11] MEDS: HYDRALAZINE HCL 20 MG/ML VIAL IV PRN (15:20)
--- NOTE | 2018-12-11 15:51 | NUR ---
PATIENT DISCHARGE TO [facility] 303- PATIENT OFF THE UNIT AT 1546 PER STRETCHER BY 2 PERSON EMS SERVICE. PATIENT IN STABLE CONDITION WITH NO S/S OF RESPIRATORY DISTRESS. 02 APPLIED. NO PAIN VOICED. IV TO LEFT FOREARM IS SALINE LOCKED. DRESSING TO LEFT LOWER LEG IS INTACT AND DRY. TRANSFER PACKET GIVEN TO EMS SERVICE. ALL PERSONAL ITEMS WERE TAKEN BY THE PATIENT AND HER GRANDSON.
== END 2018-12-11 15:46 | DRG 603 ==
LOC: ER 13:37 → ERHOLD 15:20 → MED/SURG3 15:55
PROVIDERS: ADMIT Family Medicine; ATTEND Family Medicine
PROC: 30233N1 Transfusion of Nonautologous Red Blood Cells into Peripheral Vein, Percutaneous Approach (ICD-10-PCS; principal; 2018-12-10)
DX: L03.116 Cellulitis of left lower limb (principal); N30.00 Acute cystitis without hematuria; S81.812A Laceration without foreign body, left lower leg, initial encounter; W45.8XXA Other foreign body or object entering through skin, initial encounter; J44.9 Chronic obstructive pulmonary disease, unspecified; I11.0 Hypertensive heart disease with heart failure; I50.9 Heart failure, unspecified; I48.91 Unspecified atrial fibrillation; E78.5 Hyperlipidemia, unspecified; Z90.49 Acquired absence of other specified parts of digestive tract; Z86.73 Personal history of transient ischemic attack (TIA), and cerebral infarction without residual deficits; I73.9 Peripheral vascular disease, unspecified; Z79.01 Long term (current) use of anticoagulants; K21.9 Gastro-esophageal reflux disease without esophagitis; B95.62 Methicillin resistant Staphylococcus aureus infection as the cause of diseases classified elsewhere; R09.02 Hypoxemia; D50.9 Iron deficiency anemia, unspecified
CPT/HCPCS: 36000; 36415; 71046; 80048; 80053; 80202; 81001; 82270; 82550; 82553; 83540; 83605; 83735; 83880; 84466; 84484; 85007; 85014; 85018; 85025; 85027; 85610; 85730; 86850; 86900; 86920; 87040; 87071; 87086; 87186; 87205; 93005; 94640; 94664; 99284; J0360; J1940; J2405; J2543; J2920; J3370; J7030; J7050; P9016